=== PATIENT | male | born 1950 | race Caucasian/White ===

== ENCOUNTER → 2016-03-11 | Outpatient (CLI) | payer MEDICARE | LOC: RAD 14:27 | PROVIDERS: ATTEND Physician Assistant | DX: R05 Cough (principal) | CPT/HCPCS: 71020 ==

== ENCOUNTER → 2016-07-07 | Outpatient (CLI) | payer MEDICARE | LOC: OD 13:23 | PROVIDERS: ATTEND Physician Assistant | DX: M25.551 Pain in right hip (principal) ==

== ENCOUNTER → 2017-02-21 | Outpatient (CLI) | payer MEDICARE ==
--- NOTE | 2017-02-21 18:05 | XCELERA REPORT ---
[address] [address] Transthoracic Echocardiogram Report Name: AMAURY LAW Age: 66 yrs Gender: Male : 1950 Patient Status: Outpatient Patient Location: Study Date: 02/21/2017 02:11 PM Height: 68 in Weight: 275 lb BSA: 2.3 m2 Procedure: A complete two-dimensional transthoracic echocardiogram was performed (2D, M-mode, spectral and color flow Doppler). The study was technically difficult with many images being suboptimal in quality. Reason For Study: EDEMA Ordering Physician: YIN KAY Performed By: Nahomi Robert Interpretation Summary The study was technically difficult with many images being suboptimal in quality. The left ventricle has normal cavity size with globally normal systolic function. Estimated left ventricular ejection fraction is 55%. The left ventricle is grossly normal size. There is mild concentric left ventricular hypertrophy. Doppler measurements suggest pseudonormalized left ventricular relaxation, which is associated with grade II/IV or mild to moderate diastolic dysfunction Regional wall motion abnormalities cannot be excluded due to limited visualization. The right ventricular systolic function is normal. The left atrium is moderately dilated. The right atrium is normal in size There is a trace amount of mitral regurgitation There is no mitral valve stenosis. No aortic regurgitation is present. There is no aortic valve stenosis There is a trace or physiologic amount of tricuspid regurgitation Tricuspid regurgitation jet envelope not well defined to measure RV systolic pressure accurately. The aortic root is not well visualized but is probably normal size. The inferior vena cava was not visualized Minimal pericardial effusion. MMode/2D Measurements & Calculations RVDd: 3.2 cm LVIDd: 5.2 cm FS: 31.4 % Ao root diam: 3.2 cm IVSd: 1.2 cm LVIDs: 3.6 cm EDV(Teich): 129.6 ml LVPWd: 1.2 cm ESV(Teich): 53.3 ml Ao root area: 7.9 cm2 EF(Teich): 58.9 % Doppler Measurements & Calculations MV E max jenn: MV dec slope: Ao V2 max: LV V1 max P.5 cm/sec 138.0 cm/sec 4.3 mmHg MV A max jenn: 526.9 cm/sec2 Ao max PG: LV V1 max: 94.0 cm/sec MV dec time: 7.6 mmHg 103.1 cm/sec MV E/A: 0.86 0.15 sec PA V2 max: TR max jenn: 80.6 cm/sec 256.6 cm/sec PA max PG: TR max P.3 mmHg 2.6 mmHg Left Ventricle The left ventricle is grossly normal size. There is mild concentric left ventricular hypertrophy. The left ventricle has normal cavity size with globally normal systolic function. Estimated left ventricular ejection fraction is 55%. Doppler measurements suggest pseudonormalized left ventricular relaxation, which is associated with grade II/IV or mild to moderate diastolic dysfunction. Regional wall motion abnormalities cannot be excluded due to limited visualization. Right Ventricle The right ventricle is grossly normal size. There is normal right ventricular wall thickness. The right ventricular systolic function is normal. Atria The right atrium is normal in size. The left atrium is moderately dilated. Interarterial septum not well visualized and not well dopplered. Cannot comment on ASD/PFO presence. Mitral Valve The mitral valve is grossly normal. There is no mitral valve stenosis. There is a trace amount of mitral regurgitation. Aortic Valve The aortic valve is sclerotic, but shows no functional abnormality. There is no aortic valve stenosis. No aortic regurgitation is present. Tricuspid Valve The tricuspid valve is not well visualized secondary to technical limitations. There is no tricuspid stenosis. There is a trace or physiologic amount of tricuspid regurgitation. Tricuspid regurgitation jet envelope not well defined to measure RV systolic pressure accurately. Pulmonic Valve The pulmonic valve is not well visualized. Great Vessels The aortic root is not well visualized but is probably normal size. The inferior vena cava was not visualized. Effusions Minimal pericardial effusion. : YIN KAY > Michele Norris
== END ==
LOC: SP 14:04
PROVIDERS: ATTEND Physician Assistant
DX: R60.9 Edema, unspecified (principal); R22.43 Localized swelling, mass and lump, lower limb, bilateral
CPT/HCPCS: 93306

== ENCOUNTER 2017-05-10 07:00 | Day surgery (SDC) | payer MEDICARE ==
[~2017-05-10 07:00] MED LIST: KETOROLAC TROMETHAMINE 0.45% 4 DROP/0.4 ML DROPERETTE OS PRN
[2017-05-10] MEDS ORDERED: MIDAZOLAM 2 MG/2 ML INJ ONE (07:11)
[2017-05-10] MEDS: TETRACAINE HCL 0.5% OPH SOLN 0.6 ML DROPERETTE OS PRN ×4 (07:17→07:55)
[2017-05-10] MEDS: BESIFLOXACIN HCL 0.6% OPH SUSP 5 ML BOTTLE OS PRN ×4 (07:18→08:16)
[2017-05-10] MEDS: TROPICAMIDE 1% OPH SOLN 3 ML OS PRN ×3 (07:18→07:40)
[2017-05-10] MEDS: CYCLOPENTOLATE 0.2%/PHENYLEPHRINE 1% OPH SOLN 2 ML OS PRN ×3 (07:18→07:40)
[2017-05-10] MEDS: EPINEPHRINE INJ/PF 1 MG/1 ML AMPULE ONE ×2 (08:02)
[2017-05-10] MEDS: LIDOCAINE 1% INJ-PF (10 MG/ML) 30 ML SDV ONE ×2 (08:03)
[2017-05-10] MEDS: CHONDR SU A NA/HYALUR INTRAOC KIT (SURGICARE) ONE ×2 (08:05)
[2017-05-10] MEDS: TOBRAMYCIN SULFATE/DEXAMETH OPH OINTMENT 3.5 GM ONE ×2 (08:16)
== END 2017-05-10 09:00 | disposition home or self-care (01) ==
LOC: SC 07:00
PROVIDERS: ATTEND Ophthalmology
PROC: 08RK3JZ Replacement of Left Lens with Synthetic Substitute, Percutaneous Approach (ICD-10-PCS; principal; 2017-05-10 07:45)
DX: H25.12 Age-related nuclear cataract, left eye (principal); J44.9 Chronic obstructive pulmonary disease, unspecified; I10 Essential (primary) hypertension; E11.9 Type 2 diabetes mellitus without complications; E78.00 Pure hypercholesterolemia, unspecified; K21.9 Gastro-esophageal reflux disease without esophagitis; Z79.82 Long term (current) use of aspirin; Z79.899 Other long term (current) drug therapy; Z79.84 Long term (current) use of oral hypoglycemic drugs; Z79.4 Long term (current) use of insulin; Z87.891 Personal history of nicotine dependence
CPT/HCPCS: 66984; 82962; V2630; J2250; J3490 ×3; A9270; J0171; 142

== ENCOUNTER 2017-05-24 07:56 | Day surgery (SDC) | payer MEDICARE ==
[~2017-05-24 07:56] MED LIST changes: +CHONDR SU A NA/HYALUR INTRAOC KIT (SURGICARE) ONE; +EPINEPHRINE INJ/PF 1 MG/1 ML AMPULE ONE; +KETOROLAC TROMETHAMINE 0.45% 4 DROP/0.4 ML DROPERETTE OD PRN; -KETOROLAC TROMETHAMINE 0.45% 4 DROP/0.4 ML DROPERETTE OS PRN; +LIDOCAINE 1% INJ-PF (10 MG/ML) 30 ML SDV ONE; +TOBRAMYCIN SULFATE/DEXAMETH OPH OINTMENT 3.5 GM ONE
[2017-05-24] MEDS: TETRACAINE HCL 0.5% OPH SOLN 0.6 ML DROPERETTE OD PRN ×3 (08:20→08:34)
[2017-05-24] MEDS: BESIFLOXACIN HCL 0.6% OPH SUSP 5 ML BOTTLE OD PRN ×3 (08:20→09:02)
[2017-05-24] MEDS: TROPICAMIDE 1% OPH SOLN 3 ML OD PRN ×3 (08:20→08:31)
[2017-05-24] MEDS: CYCLOPENTOLATE 0.2%/PHENYLEPHRINE 1% OPH SOLN 2 ML OD PRN ×3 (08:20→08:31)
[2017-05-24] MEDS ORDERED: MIDAZOLAM 2 MG/2 ML INJ ONE ×2 (08:23)
[2017-05-24] MEDS ORDERED: FENTANYL CITRATE INJ/PF 100 MCG/2 ML AMPUL ONE (08:23)
== END 2017-05-24 09:39 | disposition home or self-care (01) ==
LOC: SC 07:56
PROVIDERS: ATTEND Ophthalmology
DX: H25.11 Age-related nuclear cataract, right eye (principal); Z98.42 Cataract extraction status, left eye; J44.9 Chronic obstructive pulmonary disease, unspecified; E11.9 Type 2 diabetes mellitus without complications; I10 Essential (primary) hypertension; K21.9 Gastro-esophageal reflux disease without esophagitis; E78.00 Pure hypercholesterolemia, unspecified; Z79.82 Long term (current) use of aspirin; Z79.84 Long term (current) use of oral hypoglycemic drugs; Z79.899 Other long term (current) drug therapy; Z87.891 Personal history of nicotine dependence
CPT/HCPCS: 82962; 66984; V2630; J2250; J3490 ×3; A9270; J0171; J3010; 142

== ENCOUNTER → 2017-12-02 | Outpatient (CLI) | payer MEDICARE ==
--- NOTE | 2017-12-03 12:27 | RADIOLOGY REPORT (SQ) ---
EXAM DESCRIPTION: MRI LUMBAR SPINE WITHOUT COMPLETED DATE/TIME: 12/02/2017 9:55 am REASON FOR STUDY: BACK PAIN W/ RADICULOPATHY M54.10 RADICULOPATHY, SITE UNSPECIFIED COMPARISON: CT abdomen pelvis 07/13/2015 TECHNIQUE: Sagittal and Axial imaging includes T1, T2, STIR and gradient echo sequences. Coronal T2/ HASTE imaging. LIMITATIONS: None. FINDINGS: VISUALIZED UPPER ABDOMEN: Limited evaluation. No acute or suspicious findings suggested. SEGMENTATION: No transitional anatomy. The lowest well-developed disc space is labeled L5-S1. ALIGNMENT: Anatomic. VERTEBRAE: Intact. BONE MARROW: Mild fatty degenerative endplate changes at T12-L1 and L2-3. Mild edema in the anterior superior corner of L1 related to bony spurring. DISC SIGNAL: Diffuse decreased T2 weighted intervertebral disc signal. Disc space loss of height at L5-S1 POSTERIOR ELEMENTS: Generally intact. No pars defect evident. HARDWARE: None in the spine. CORD AND CONUS: Normal in size and signal intensity. Conus at the T12-L1 level. SOFT TISSUES: No aortic aneurysm seen. No bulky retroperitoneal adenopathy or mass. No paraspinal mas s or fluid. T11-12: No central or foraminal stenosis. Moderate bilateral facet hypertrophy. T12-L1: Unremarkable all L1-L2: Mild diffuse posterior disc bulge and bony spurring, mild bilateral facet and ligament hypertr ophy. No significant central or foraminal encroachment. L2-L3: Mild diffuse posterior disc bulge and bony spurring, mild bilateral facet and ligament hypertr ophy. No significant central or foraminal encroachment L3-L4: Broad diffuse posterior disc bulging is present with a left foraminal protrusion. Mild bilate ral facet and ligament hypertrophy. Borderline central canal narrowing. No right foraminal stenosis . Moderate left foraminal narrowing without definite exiting L3 nerve root impingement. L4-L5: Broad diffuse posterior disc bulge and bony spurring and moderate bilateral facet and ligament hypertrophy is present. No central stenosis. No right foraminal narrowing. Mild left foraminal st enosis. L5-S1: Broad diffuse posterior disc bulge and bony spurring is present with a central chronic appeari ng disc protrusion with bony spurring. This does not have mass effect on the thecal sac or exiting L 5 or proximal S1 nerve roots. No significant central stenosis. Mild bilateral foraminal narrowing w ithout exiting L5 nerve root impingement SACRUM: Visualized upper sacrum intact. OTHER: No other significant findings. IMPRESSION: Diffuse degenerative changes without high-grade central or foraminal stenosis TECHNICAL DOCUMENTATION: JOB ID: [id number]- All Rights Reserved Reading location - IP/workstation name: [email or web address]
== END ==
LOC: RAD 09:02
PROVIDERS: ATTEND Family Medicine
DX: M54.10 Radiculopathy, site unspecified (principal)
CPT/HCPCS: 72148

== ENCOUNTER 2017-12-26 04:03 | Inpatient (IN) | payer MEDICARE ==
[2017-12-26] MEDS ORDERED: IPRATROPIUM/ALBUTEROL 0.5-2.5 MG/3 ML AMPUL NEB ONE ×2 (04:22)
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
[2017-12-26 04:32] LABS: ABSOLUTE BASOPHILS # (AUTO) 0.1 10^3/uL (0.0-0.2); ABSOLUTE EOSINOPHILS # (AUTO) 0.2 10^3/uL (0.0-0.6); ABSOLUTE LYMPHOCYTES (AUTO) 1.7 10^3/uL (0.5-4.7); ABSOLUTE MONOCYTES (AUTO) 0.6 10^3/uL (0.1-1.4); ABSOLUTE NEUT (AUTO) 5.2 10^3/uL (1.7-8.2); BASOPHILS % (AUTO) 0.7 % (0-2); EOSINOPHILS % (AUTO) 2.2 % (0-6); HEMATOCRIT 40.3 % (37.9-51.0); HEMOGLOBIN 13.3 g/dL (13.5-17.0); LYMPHOCYTES % (AUTO) 22.1 % (13-45); MEAN CORPUSCULAR HEMOGLOBIN 26.7 pg (27.0-33.4); MEAN CORPUSCULAR VOLUME 81 fl (80-97); MONOCYTES % (AUTO) 7.9 % (3-13); PLATELET COUNT 246 10^3/uL (150-450); RED BLOOD COUNT 4.98 10^6/uL (4.35-5.55); RED CELL DISTRIBUTION WIDTH 15.4 % (11.5-14.0); SEGMENTED NEUTROPHILS % (AUTO) 67.1 % (42-78); TOTAL CELLS COUNTED % (AUTO) 100 %; WHITE BLOOD COUNT 7.7 10^3/uL (4.0-10.5)
[2017-12-26] MEDS: MAGNESIUM SULFATE/D5W 1 GM/100 ML RTUPB IV SCH ×2 (04:37→05:34)
[2017-12-26 04:52] LABS: ALANINE AMINOTRANSFERASE 28 U/L (21-72); ALBUMIN 3.4 g/dL (3.5-5.0); ALKALINE PHOSPHATASE 62 U/L (38-126); ANION GAP 13 (5-19); ASPARTATE AMINO TRANSFERASE 24 U/L (17-59); BILIRUBIN,DIRECT 0.1 mg/dL (0.0-0.4); BILIRUBIN,TOTAL 0.3 mg/dL (0.2-1.3); BLOOD UREA NITROGEN 19 mg/dL (7-20); CALCIUM 9.1 mg/dL (8.4-10.2); CARBON DIOXIDE 30 mmol/L (22-30); CHLORIDE 104 mmol/L (98-107); GLUCOSE 117 mg/dL (75-110); POTASSIUM 3.7 mmol/L (3.6-5.0); SODIUM 146.5 mmol/L (137-145); TOTAL PROTEIN 6.1 g/dL (6.3-8.2)
[2017-12-26 05:03] LABS: TROPONIN I 0.024 ng/mL
--- NOTE | 2017-12-26 05:32 | RADIOLOGY REPORT (SQ) ---
EXAM DESCRIPTION: X-ray single view chest. CLINICAL HISTORY: 67 years Male, shortness of breath COMPARISON: None. TECHNIQUE: Single portable view of the chest performed on 12/26/2017 at 5:05 AM FINDINGS: The lungs are well expanded. There are patchy parenchymal opacities in the left perihilar region and left lung base and to a lesser degree the right lung base. These may represent areas of atelectasis or inflammatory change. There is no evidence of a pneumothorax. The cardiac silhouette is within normal limits. The mediastinal contours are normal. No acute osseous abnormality is identified. There are mild degenerative changes of the spine and left shoulder. No focal soft tissue abnormalities are seen. Lines and tubes: None. IMPRESSION: Patchy parenchymal opacities in the left perihilar region and left lung base and to a lesser degree the right lung base possibly due to atelectasis versus an infectious or inflammatory process
[2017-12-26] MEDS ORDERED: DOXYCYCLINE HYCLATE INJ 100 MG VIAL IV ONE (05:54)
[2017-12-26 06:07] LABS: VENOUS BLOOD HCO3 28.4 mmol/L (20-32); VENOUS BLOOD PCO2 46.8 mmHg (35-63); VENOUS BLOOD PH 7.4 (7.30-7.42)
[2017-12-26] MEDS ORDERED: GLUCAGON,HUMAN RECOMB 1 MG INJ IM PRN (06:44)
[2017-12-26] MEDS ORDERED: DEXTROSE 50%-WATER 25 GM/50 ML DISP.SYRIN IV PRN ×2 (06:44)
[2017-12-26] MEDS ORDERED: DEXTROSE 40% GEL 15 GM TUBE PO PRN ×2 (06:44)
[2017-12-26] MEDS: IPRATROPIUM/ALBUTEROL 0.5-2.5 MG/3 ML AMPUL NEB SCH ×5 (08:52→23:34)
[2017-12-26 09:57] LABS: ARTERIAL BLOOD BASE EXCESS 4.3 mmol/L; ARTERIAL BLOOD H2CO3 1.46 mmol/L (1.05-1.35); ARTERIAL BLOOD HCO3 29.9 mmol/L (20-24); ARTERIAL BLOOD O2 SATURATION 96.7 % (94-98); ARTERIAL BLOOD PCO2 48.4 mmHg (35-45); ARTERIAL BLOOD PH 7.41 (7.35-7.45); ARTERIAL BLOOD TOTAL CO2 31.3 mmol/L (23-27)
[2017-12-26 09:58] LABS: ARTERIAL BLOOD FIO2 3 L
[2017-12-26] MEDS ORDERED: FUROSEMIDE INJ/PF 20 MG/2 ML SDV IV SCH ×2 (10:00→11:15)
[2017-12-26] MEDS ORDERED: AZITHROMYCIN 500 MG in DEXTROSE 5%-WATER 250 ML IV SCH (10:00)
[2017-12-26] MEDS ORDERED: CEFTRIAXONE 1 GM/D5W RTU 50 ML IV SCH (10:00)
[2017-12-26] MEDS ORDERED: CEFTRIAXONE SODIUM 1,000 MG in DEXTROSE 5%-WATER 50 ML IV SCH (10:00)
[2017-12-26] MEDS: DOXYCYCLINE HYCLATE 100 MG TABLET PO SCH ×2 (10:19→23:01)
[2017-12-26] MEDS: GUAIFENESIN 600 MG TABLET.SA PO SCH ×2 (10:19→23:00)
[2017-12-26] MEDS: FAMOTIDINE 20 MG TABLET PO SCH ×2 (10:19→23:00)
[2017-12-26] MEDS: ENOXAPARIN SODIUM INJ 40 MG/0.4 ML DISP.SYRIN SUBCUT SCH (10:20)
[2017-12-26] MEDS: INSULIN LISPRO 100 UNIT/ML 3 ML VIAL SUBCUT PRN ×3 (10:20→17:19)
--- NOTE | 2017-12-26 10:36 | EKG REPORT ---
SEVERITY:- BORDERLINE ECG - SINUS RHYTHM BORDERLINE PROLONGED QT INTERVAL : Confirmed by: Randi Kaye MD 26-Dec-2017 10:35:51
[2017-12-26 11:17] LABS: CREATINE KINASE MB 1.15 ng/mL (<4.55); TROPONIN I 0.019 ng/mL
--- NOTE | 2017-12-26 12:03 | RADIOLOGY REPORT (SQ) ---
EXAM DESCRIPTION: CTA CHEST COMPLETED DATE/TIME: 12/26/2017 11:30 am REASON FOR STUDY: hypoxia/sob COMPARISON: None. TECHNIQUE: CT scan of the chest performed using helical scanning technique with dynamic intravenous contrast injection. Images reviewed with lung, soft tissue and bone windows. Reconstructed coronal and sagittal MPR images reviewed. Additional 3 dimensional post-processing performed to develop Maximal Intensity Projection images (DC P). All images stored on PACS. All CT scanners at this facility use dose modulation, iterative reconstruction, and/or weight based d osing when appropriate to reduce radiation dose to as low as reasonably achievable (ALARA). [facility]: Dose Right [facility]: CareDose [facility]: Dose Right [facility]: Teradose 4D [facility]: Humagade CONTRAST TYPE AND DOSE: contrast/concentration: Isovue 350.00 mg/ml; Total Contrast Delivered: 79.0 ml; Total Saline Delivered: 110.0 ml Contrast bolus optimized for the pulmonary arteries. Not diagnostic for the aorta. RENAL FUNCTION: BUN 19 creatinine 0.75. RADIATION DOSE: CT Rad equipment meets quality standard of care and radiation dose reduction techniq ues were employed. CTDIvol: 14.9 - 33.8 mGy. DLP: 3093 mGy-cm. . LIMITATIONS: None. FINDINGS: LUNGS AND PLEURA: Moderate bilateral pleural effusions with scattered basilar atelectasis. AORTA AND GREAT VESSELS: No aneurysm. Contrast bolus not optimized for the aorta. HEART: No pericardial effusion. No significant coronary artery calcifications. PULMONARY ARTERIES: No emboli visualized in the main pulmonary arteries or the segmental branches. HILAR AND MEDIASTINAL STRUCTURES: No identified masses or abnormal nodes. HARDWARE: None in the chest. UPPER ABDOMEN: See separate report of the CT of the abdomen. THYROID AND OTHER SOFT TISSUES: No masses. No adenopathy. BONES: No acute or significant finding. 3D MIPS: Confirm above findings. OTHER: No other significant finding. IMPRESSION: 1. NORMAL CTA OF THE CHEST. NO PULMONARY EMBOLI. 2. MODERATE BILATERAL PLEURAL EFFUSIONS WITH SCATTERED BASILAR ATELECTASIS. COMMENT: Quality ID # [id number]: Final reports with documentation of one or more dose reduction techniques (e.g., Automated exposure control, adjustment of the mA and/or kV according to patient size, use of iterative reconstruction technique) TECHNICAL DOCUMENTATION: JOB ID: [id number]- All Rights Reserved Reading location - IP/workstation name: [email or web address]
--- NOTE | 2017-12-26 12:08 | RADIOLOGY REPORT (SQ) ---
EXAM DESCRIPTION: CT ABD/PELVIS WITH IV ONLY COMPLETED DATE/TIME: 12/26/2017 11:30 am REASON FOR STUDY: abd distension COMPARISON: None. TECHNIQUE: CT scan of the abdomen and pelvis performed using helical scanning technique with dynamic intravenous contrast injection. No oral contrast. Images reviewed with lung, soft tissue, and bone windows. Reconstructed coronal and sagittal MPR images reviewed. Delayed images for evaluation of the urinary system also acquired. All images stored on PACS. All CT scanners at this facility use dose modulation, iterative reconstruction, and/or weight based d osing when appropriate to reduce radiation dose to as low as reasonably achievable (ALARA). [facility]: Dose Right [facility]: CareDose [facility]: Dose Right [facility]: Teradose 4D [facility]: Truzip CONTRAST TYPE AND DOSE: 79 mL Omnipaque 350- low osmolar. RENAL FUNCTION: BUN 19 creatinine 0.75. RADIATION DOSE: . LIMITATIONS: None. FINDINGS: LOWER CHEST: See separate report of the CT of the chest. LIVER: Normal size. No masses. No dilated ducts. SPLEEN: Normal size. No focal lesions. PANCREAS: No masses. No significant calcifications. No adjacent inflammation or peripancreatic fluid collections. Pancreatic duct not dilated. GALLBLADDER: No identified stones by CT criteria. No inflammatory changes to suggest cholecystitis. ADRENAL GLANDS: No significant masses or asymmetry. RIGHT KIDNEY AND URETER: No solid masses. No significant calcifications. No hydronephrosis or hyd roureter. LEFT KIDNEY AND URETER: No solid masses. No significant calcifications. No hydronephrosis or hydr oureter. AORTA AND VESSELS: No aneurysm. No dissection. Renal arteries, SMA, celiac without stenosis. RETROPERITONEUM: No retroperitoneal adenopathy, hemorrhage or masses. BOWEL AND PERITONEAL CAVITY: No masses or inflammatory changes in the bowel. Slight hazy appearance of the mesentery. No free fluid or peritoneal masses. APPENDIX: Normal. PELVIS: No mass. No free fluid. Normal bladder. ABDOMINAL WALL: No masses. No hernias. BONES: No significant or acute findings. OTHER: No other significant finding. IMPRESSION: 1. SLIGHT HAZY APPEARANCE OF THE MESENTERY, "ANETA MESENTERY" . THIS IS A NONSPECIFIC FINDING AND CO ULD BE INCIDENTAL BUT COULD BE INDICATIVE OF INFLAMMATORY PROCESS. 2. NO OTHER SIGNIFICANT OR ACUTE FINDING IN THE ABDOMEN OR PELVIS ON CT SCAN WITH IV CONTRAST. TECHNICAL DOCUMENTATION: JOB ID: [id number] Quality ID # [id number]: Final reports with documentation of one or more dose reduction techniques (e.g., Au tomated exposure control, adjustment of the mA and/or kV according to patient size, use of iterative reconstruction technique) 2010 [employer]- All Rights Reserved Reading location - IP/workstation name: [email or web address]
--- NOTE | 2017-12-26 12:10 | Physician Advisory Note ---
Physician Advisor ProgressNote .: Pursuant to the plan for Ramona Jones, I have reviewed the medical record for this patient. Physician Advisor Statement: Please consider documenting, if you agree: 1. "Possible pneumonia, suspect gram-___ type, evidenced by " 2. "Possible acute ___ CHF, evidenced by " 3. "obesity, BMI 45.7" 4. ? - "Worsening hypoxemia" (sat 95% on 3L gives P/F ratio of 250, after earlier 96% on 2L which gives P/F ratio 321) 5. Medical necessity - it is clear pt is not appropriate to go home today, but need it explicit why pt is felt to be appropraite for Inpt status from the outset (see below) Status: COPD exac +/- CHF exac/PNA is typically most appropriate for Obs status initially, changing to Inpt if not responding promptly to appropriate tx. In this case, this [employer] pt normally does not need O2, & is needing O2 + frequent Duonebs etc, even after 3 Duonebs & Solumedrol & IV Mag between EMS & ED - but he has not had even 12 hours of tx yet. - If he is noted to have increased work of breathing at same time as hypoxemia , he qualifies for dx of Ac Hypoxemic Resp FAilure (he was already noted to have labored breathing in triage at 04:19, but O2 sat was not clearly hypoxemic at that time, per data this reviewer has seen). From what is documented so far, appears most appropriate for Obs status initially, but certainly has potential for developing Inpt appropriateness if he is not improving adequately after a day of aggressive therapy (still needing O2, or breathing not yet close to baseline, ...). - If attg felt, at time of status decision, that pt would most certainly not improve promptly w/appropriately aggressive tx, but would be sure to have a prolonged course of aggressive hospital level care needed, please document the reasons for that (that can be considered in determining appropriate initial status). Thanks! CK
--- NOTE | 2017-12-26 14:49 | PDOC H&P ---
History of Present Illness Admission Date/PCP: 12/26/17 06:32 ANANDA FERNANDEZ MD Patient complains of: sob History of Present Illness: AMAURY LAW is a 67 year old male this is 67 male with type 2 dm/htn/copd and chronic back pain came to er via ems due to sob and fever and chills and p was mild respirtory distress and place on 02 and neb x pt also recived iv soulmedrol pt also c/o leg swelling and abd distesnsion according to pt also have fever and chills since yeterday but pt denied any cough pt also seen by cardilogy 2 yr back and all stable pt nt bnp was elevated in er when i saw pt on floor feel better no chest pain pt admitted for copd/pnemonia and r/o chf Past Medical History Cardiac Medical History: Reports: Hypertension Denies: Coronary Artery Disease, Myocardial Infarction Pulmonary Medical History: Reports: Chronic Obstructive Pulmonary Disease (COPD) , Pneumonia, Sleep Apnea Denies: Asthma, Bronchitis Neurological Medical History: Denies: Seizures Endocrine Medical History: Reports: Diabetes Mellitus Type 2 GI Medical History: Reports: Gastroesophageal Reflux Disease Denies: Hepatitis, Hiatal Hernia Musculoskeltal Medical History: Denies: Arthritis Hematology: Denies: Anemia, Sickle Cell Disease Past Surgical History Past Surgical History: Denies: Pacemaker Social History Lives with: Family Smoking Status: Former Smoker Frequency of Alcohol Use: Rare Hx Recreational Drug Use: No Drugs: None Hx Prescription Drug Abuse: No Family History Family History: Reviewed & Not Pertinent Parental Family History Reviewed: Yes Children Family History Reviewed: Yes Sibling(s) Family History Reviewed.: Yes Medication/Allergy Home Medications: Aspirin [Aspirin EC] 81 mg PO DAILY 12/26/17 Hum Insulin NPH/Reg Insulin Hm [Insulin Inj 70-30 (100 Unit/1 ml) 3 ml Vial] 20 unit SUBCUT Q12 12/26/17 Ipratropium/Albuterol Sulfate [Duoneb 3 ml Ampul] 3 ml NEB RTQIDP PRN 12/26/17 Losartan Potassium [Cozaar 50 mg Tablet] 50 mg PO DAILY 12/26/17 Metformin HCl [Glucophage] 1,000 mg PO BID 12/26/17 Omeprazole 40 mg PO QPM 12/26/17 Pioglitazone HCl [Actos] 30 mg PO QPM 12/26/17 Allergies/Adverse Reactions: No Known Allergies Allergy (Verified 07/13/15 17:03) Review of Systems Constitutional: PRESENT: chills, fever(s). ABSENT: headache(s), weight gain, weight loss Eyes: ABSENT: visual disturbances Ears: ABSENT: hearing changes Cardiovascular: PRESENT: dyspnea on exertion. ABSENT: chest pain, edema, orthropnea, palpitations Respiratory: ABSENT: cough, hemoptysis Gastrointestinal: ABSENT: abdominal pain, constipation, diarrhea, hematemesis, hematochezia, nausea, vomiting Genitourinary: ABSENT: dysuria, hematuria Musculoskeletal: ABSENT: joint swelling Integumentary: ABSENT: rash, wounds Neurological: ABSENT: abnormal gait, abnormal speech, confusion, dizziness, focal weakness, syncope Psychiatric: ABSENT: anxiety, depression, homidical ideation, suicidal ideation Endocrine: ABSENT: cold intolerance, heat intolerance, menstrual abnormalities, polydipsia, polyuria Hematologic/Lymphatic: ABSENT: easy bleeding, easy bruising, lymphadenopathy Physical Exam Vital Signs: Temp Pulse Resp BP Pulse Ox 97.7 F 84 20 189/88 H 95 12/26/17 07:56 12/26/17 12:41 12/26/17 12:41 12/26/17 07:56 12/26/17 12:41 Intake & Output 12/25/17 12/26/17 12/27/17 06:59 06:59 06:59 Intake Total 100 50 Balance 100 50 Weight 136.4 kg General appearance: PRESENT: no acute distress, well-developed, well-nourished Head exam: PRESENT: atraumatic, normocephalic Eye exam: PRESENT: conjunctiva pink, EOMI, PERRLA. ABSENT: scleral icterus Ear exam: PRESENT: normal external ear exam Mouth exam: PRESENT: moist, tongue midline Neck exam: PRESENT: full ROM. ABSENT: carotid bruit, JVD, lymphadenopathy, thyromegaly Respiratory exam: PRESENT: decreased breath sounds Cardiovascular exam: PRESENT: RRR. ABSENT: diastolic murmur, rubs, systolic murmur Pulses: PRESENT: normal dorsalis pedis pul, +2 pedal pulses bilateral Vascular exam: PRESENT: normal capillary refill GI/Abdominal exam: PRESENT: distended, normal bowel sounds, soft. ABSENT: guarding, mass, organolmegaly, rebound, tenderness Rectal exam: PRESENT: deferred Extremities exam: PRESENT: pedal edema Neurological exam: PRESENT: alert, awake, oriented to person, oriented to place , oriented to time, oriented to situation, CN II-XII grossly intact. ABSENT: motor sensory deficit Psychiatric exam: PRESENT: appropriate affect, normal mood. ABSENT: homicidal ideation, suicidal ideation Skin exam: PRESENT: dry, intact, warm. ABSENT: cyanosis, rash Results Laboratory Results: 12/26/17 09:30 Carbonic Acid 1.46 H HCO3/H2CO3 Ratio 20:1 ABG pH 7.41 ABG pCO2 48.4 H ABG pO2 88.0 ABG HCO3 29.9 H ABG O2 Saturation 96.7 ABG Base Excess 4.3 FiO2 3 L 12/26/17 12/26/17 10:17 10:17 Creatine Kinase 56 CK-MB (CK-2) 1.15 Troponin I 0.019 Impressions: Abdomen/Pelvis CT 12/26/17 00:00 IMPRESSION: 1. SLIGHT HAZY APPEARANCE OF THE MESENTERY, "ANETA MESENTERY" . THIS IS A NONSPECIFIC FINDING AND COULD BE INCIDENTAL BUT COULD BE INDICATIVE OF INFLAMMATORY PROCESS. 2. NO OTHER SIGNIFICANT OR ACUTE FINDING IN THE ABDOMEN OR PELVIS ON CT SCAN WITH IV CONTRAST. Chest/Abdomen CTA 12/26/17 00:00 IMPRESSION: 1. NORMAL CTA OF THE CHEST. NO PULMONARY EMBOLI. 2. MODERATE BILATERAL PLEURAL EFFUSIONS WITH SCATTERED BASILAR ATELECTASIS. Chest X-Ray 12/26/17 04:22 IMPRESSION: Patchy parenchymal opacities in the left perihilar region and left lung base and to a lesser degree the right lung base possibly due to atelectasis versus an infectious or inflammatory process Assessment & Plan - Diagnosis (1) COPD (chronic obstructive pulmonary disease) with acute bronchitis Is this a current diagnosis for this admission?: Yes Plan: cont neb (2) Hypertension Qualifiers: Hypertension type: essential hypertension Qualified Code(s): I10 - Essential (primary) hypertension Is this a current diagnosis for this admission?: Yes Plan: cont curr med (3) Pneumonia Qualifiers: Pneumonia type: due to unspecified organism Laterality: bilateral Lung location: unspecified part of lung Qualified Code(s): J18.9 - Pneumonia, unspecified organism Is this a current diagnosis for this admission?: Yes Plan: start ax (4) Shortness of breath Is this a current diagnosis for this admission?: Yes Plan: possible copd/pnemonia but will r/o other possiblity order echo order cta (5) Abdominal distension Is this a current diagnosis for this admission?: Yes Plan: will order ct abd/pelvis (6) Sleep apnea Qualifiers: Sleep apnea type: unspecified type Qualified Code(s): G47.30 - Sleep apnea , unspecified Is this a current diagnosis for this admission?: Yes Plan: cont use c pap - Time Time Spent: 50 to 70 Minutes Medications reviewed and adjusted accordingly: Yes Anticipated discharge: Home Within: Other - Inpatient Certification Based on my medical assessment, after consideration of the patient's comorbidities, presenting symptoms, or acuity I expect that the services needed warrant INPATIENT care.: Yes I certify that my determination is in accordance with my understanding of Medicare's requirements for reasonable and necessary INPATIENT services [42 CFR 412.3e].: Yes Medical Necessity: Significant Comorbidiites Make Outpatient Treatment Too Risky , Need Close Monitoring Due to Risk of Patient Decompensation, Need for IV Antibiotics Post Hospital Care: D/C Legal Administrative Secretary Documentation - Plan Summary Plan Summary: admit in [facility] d/w and family on bed side
[2017-12-26 15:49] LABS: A TYPE INFLUENZA AG NEGATIVE (NEGATIVE); B INFLUENZA AG NEGATIVE (NEGATIVE)
[2017-12-26 16:59] LABS: CREATINE KINASE MB 1.3 ng/mL (<4.55); TROPONIN I 0.019 ng/mL
[2017-12-26] MEDS: PIOGLITAZONE HCL 30 MG TABLET PO SCH (17:18)
[2017-12-26] MEDS: LANSOPRAZOLE 30 MG TAB.RAP.DR PO SCH (17:19)
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
[2017-12-26] MEDS: ACETAMINOPHEN 325 MG TABLET PO PRN (22:10)
[2017-12-26 22:37] LABS: CREATINE KINASE MB 1.12 ng/mL (<4.55); TROPONIN I 0.027 ng/mL
[2017-12-26] MEDS: LOSARTAN POTASSIUM 50 MG TABLET PO SCH (23:00)
[2017-12-26] MEDS: HUM INSULIN NPH/REG INSULIN HM 100 UNIT/1 ML 3 ML SUBCUT SCH (23:01)
[2017-12-27] MEDS: HYDRALAZINE HCL INJ/PF 20 MG/1 ML SDV IV PRN ×4 (00:08→17:57)
[2017-12-27 00:46] LABS: APPEARANCE,URINE CLOUDY; BILIRUBIN,URINE NEGATIVE (NEGATIVE); COLOR,URINE AMBER; GLUCOSE, URINE >=500 mg/dL (NEGATIVE); KETONES,URINE NEGATIVE (NEGATIVE); LEUKOCYTE ESTERASE,URINE NEGATIVE (NEGATIVE); NITRITE,URINE NEGATIVE (NEGATIVE); PROTEIN,URINE >=500 mg/dL (NEGATIVE); URINE SPECIFIC GRAVITY 1.037; UROBILINOGEN,URINE NEGATIVE mg/dL (<2.0)
[2017-12-27] MEDS: IPRATROPIUM/ALBUTEROL 0.5-2.5 MG/3 ML AMPUL NEB SCH ×5 (03:48→20:27)
[2017-12-27 05:06] LABS: ABSOLUTE LYMPHOCYTES (AUTO) 1.6 10^3/uL (0.5-4.7); ABSOLUTE MONOCYTES (AUTO) 0.9 10^3/uL (0.1-1.4); ABSOLUTE NEUT (AUTO) 8.9 10^3/uL (1.7-8.2); BASOPHILS % (AUTO) 0.4 % (0-2); EOSINOPHILS % (AUTO) 0.1 % (0-6); HEMATOCRIT 34.9 % (37.9-51.0); HEMOGLOBIN 11.6 g/dL (13.5-17.0); LYMPHOCYTES % (AUTO) 13.8 % (13-45); MEAN CORPUSCULAR HEMOGLOBIN 26.5 pg (27.0-33.4); MEAN CORPUSCULAR HGB CONC 33.2 g/dL (32.0-36.0); MEAN CORPUSCULAR VOLUME 80 fl (80-97); MONOCYTES % (AUTO) 7.7 % (3-13); PLATELET COUNT 234 10^3/uL (150-450); RED BLOOD COUNT 4.35 10^6/uL (4.35-5.55); RED CELL DISTRIBUTION WIDTH 15.9 % (11.5-14.0); TOTAL CELLS COUNTED % (AUTO) 100 %; WHITE BLOOD COUNT 11.4 10^3/uL (4.0-10.5)
[2017-12-27 05:23] LABS: ALANINE AMINOTRANSFERASE 25 U/L (21-72); ALKALINE PHOSPHATASE 52 U/L (38-126); ANION GAP 10 (5-19); ASPARTATE AMINO TRANSFERASE 15 U/L (17-59); BILIRUBIN,DIRECT 0.2 mg/dL (0.0-0.4); BILIRUBIN,TOTAL 0.3 mg/dL (0.2-1.3); BLOOD UREA NITROGEN 28 mg/dL (7-20); CALCIUM 8.6 mg/dL (8.4-10.2); CARBON DIOXIDE 30 mmol/L (22-30); CHLORIDE 102 mmol/L (98-107); CHOLESTEROL 149.28 mg/dL (0-200); GLUCOSE 245 mg/dL (75-110); POTASSIUM 3.6 mmol/L (3.6-5.0); SODIUM 141.6 mmol/L (137-145); TOTAL PROTEIN 5.5 g/dL (6.3-8.2); TRIGLYCERIDES 85 mg/dL (<150)
[2017-12-27 05:34] LABS: DIRECT LDL 100 mg/dL (<100)
[2017-12-27 05:36] LABS: FREE T3 2.33 pg/mL (2.77-5.27); FREE T4 (FREE THYROXINE) 1.17 ng/dL (0.78-2.19)
[2017-12-27 05:49] LABS: THYROID STIMULATING HORMONE 1.27 uIU/mL (0.47-4.68)
[2017-12-27] MEDS ORDERED: MAG HYDROX/AL HYDROX/SIMETH SUSP 30 ML UDCUP PO PRN (07:04)
--- NOTE | 2017-12-27 08:18 | EKG REPORT ---
SEVERITY:- ABNORMAL ECG - SINUS RHYTHM NONSPECIFIC INTRAVENTRICULAR CONDUCTION DELAY : Confirmed by: Randi Kaye MD 27-Dec-2017 08:17:42
[2017-12-27 08:42] LABS: CREATINE KINASE MB 1.29 ng/mL (<4.55); TROPONIN I 0.03 ng/mL
--- NOTE | 2017-12-27 09:01 | PDOC CONSULTATION ---
Consultation Consult Date: 12/27/17 Attending physician:: DANIE MACIEL Consult reason:: abdominal distension, CT showing possible " kristopher mesentery". epigastric discomfort History of Present Illness Admission Date/PCP: 12/26/17 06:32 ANANDA FORTUNE MD History of Present Illness: AMAURY LAW is a 67 year old male Asked to see this patient by Dr Beltran patient admitted for other reasons but in the interim noted to have abdominal distension patient had CT scan, findings are non specific previous colonoscopy performed by Dr Taylor, previous note in 2010 has been having epigastric pain patient may need EGD cardiology consult has been obtained Dr Fortune requesting GI work up previous colonoscopy was apparently normal may need EGD to rule out peptic ulcer disease does not need colonoscopy until 2020 will arrange for testing tomorrow has some GERD on PPI patient has some symptoms of nausea and early satiety as well no melena Past Medical History Cardiac Medical History: Reports: Hypertension Denies: Coronary Artery Disease, Myocardial Infarction Pulmonary Medical History: Reports: Chronic Obstructive Pulmonary Disease (COPD) , Pneumonia, Sleep Apnea Denies: Asthma, Bronchitis Neurological Medical History: Denies: Seizures Endocrine Medical History: Reports: Diabetes Mellitus Type 2 GI Medical History: Reports: Gastroesophageal Reflux Disease Denies: Hepatitis, Hiatal Hernia Musculoskeltal Medical History: Denies: Arthritis Hematology: Denies: Anemia, Sickle Cell Disease Past Surgical History Past Surgical History: Denies: Pacemaker Social History Lives with: Family Smoking Status: Former Smoker Frequency of Alcohol Use: Rare Hx Recreational Drug Use: No Drugs: None Hx Prescription Drug Abuse: No Family History Family History: Reviewed & Not Pertinent Parental Family History Reviewed: Yes Children Family History Reviewed: Unknown Sibling(s) Family History Reviewed.: Unknown Medication/Allergy Home Medications: Aspirin [Aspirin EC] 81 mg PO DAILY 12/26/17 Hum Insulin NPH/Reg Insulin Hm [Insulin Inj 70-30 (100 Unit/1 ml) 3 ml Vial] 20 unit SUBCUT Q12 12/26/17 Ipratropium/Albuterol Sulfate [Duoneb 3 ml Ampul] 3 ml NEB RTQIDP PRN 12/26/17 Losartan Potassium [Cozaar 50 mg Tablet] 50 mg PO DAILY 12/26/17 Metformin HCl [Glucophage] 1,000 mg PO BID 12/26/17 Omeprazole 40 mg PO QPM 12/26/17 Pioglitazone HCl [Actos] 30 mg PO QPM 12/26/17 Allergies/Adverse Reactions: No Known Allergies Allergy (Verified 07/13/15 17:03) Review of Systems Constitutional: ABSENT: fever(s), headache(s), night sweats Eyes: ABSENT: visual disturbances Ears: ABSENT: hearing changes Nose, Mouth, and Throat: ABSENT: sore throat Cardiovascular: ABSENT: edema, orthropnea Respiratory: ABSENT: dyspnea, hemoptysis Gastrointestinal: ABSENT: coffee ground emesis, diarrhea, melena Musculoskeletal: ABSENT: deformity, joint swelling Integumentary: ABSENT: pruritus Neurological: ABSENT: syncope, tingling, tremor(s), vertigo Endocrine: ABSENT: polydipsia, polyphagia, polyuria Hematologic/Lymphatic: ABSENT: easy bruising Physical Exam Vital Signs: Temp Pulse Resp BP Pulse Ox 97.7 F 85 20 163/72 H 100 12/27/17 07:42 12/27/17 07:42 12/27/17 07:42 12/27/17 07:42 12/27/17 07:42 Intake & Output 12/26/17 12/27/17 12/28/17 06:59 06:59 06:59 Intake Total 100 787 Output Total 1670 Balance 100 -883 Weight 137.6 kg General appearance: PRESENT: no acute distress, well-developed, well-nourished Head exam: PRESENT: normocephalic Eye exam: PRESENT: EOMI, PERRLA. ABSENT: periorbital swelling, scleral icterus Mouth exam: PRESENT: moist, neck supple Throat exam: ABSENT: tonsillar exudate, tonsillogmegaly Neck exam: ABSENT: meningismus, tenderness, thyromegaly Respiratory exam: PRESENT: symmetrical, unlabored. ABSENT: tachypnea, wheezes Cardiovascular exam: PRESENT: RRR, +S1, +S2 GI/Abdominal exam: PRESENT: soft. ABSENT: rebound, rigid, tenderness Extremities exam: ABSENT: joint swelling Musculoskeletal exam: PRESENT: full ROM Neurological exam: PRESENT: oriented to time, oriented to situation, CN II-XII grossly intact Focused psych exam: ABSENT: restlessness Skin exam: PRESENT: normal color. ABSENT: mottled, pallor, petechiae, urticaria , vesicles Results Laboratory Results: 12/27/17 04:42 12/27/17 04:42 12/26/17 12/26/17 12/27/17 09:30 23:50 04:42 WBC 11.4 H RBC 4.35 Hgb 11.6 L Hct 34.9 L MCV 80 MCH 26.5 L MCHC 33.2 RDW 15.9 H Plt Count 234 Seg Neutrophils % 78.0 Lymphocytes % 13.8 Monocytes % 7.7 Eosinophils % 0.1 Basophils % 0.4 Absolute Neutrophils 8.9 H Absolute Lymphocytes 1.6 Absolute Monocytes 0.9 Absolute Eosinophils 0.0 Absolute Basophils 0.0 Carbonic Acid 1.46 H HCO3/H2CO3 Ratio 20:1 ABG pH 7.41 ABG pCO2 48.4 H ABG pO2 88.0 ABG HCO3 29.9 H ABG O2 Saturation 96.7 ABG Base Excess 4.3 FiO2 3 L Sodium Potassium Chloride Carbon Dioxide Anion Gap BUN Creatinine Est GFR ( Amer) Est GFR (Non-Af Amer) Glucose Calcium Total Bilirubin AST ALT Alkaline Phosphatase Total Protein Albumin Triglycerides Cholesterol LDL Cholesterol Direct VLDL Cholesterol HDL Cholesterol TSH Free T4 Free T3 pg/mL Urine Color [place] Urine Appearance CLOUDY Urine pH 5.0 Ur Specific [place] 1.037 Urine Protein >=500 H Urine Glucose (UA) >=500 H Urine Ketones NEGATIVE Urine Blood LARGE H Urine Nitrite NEGATIVE Ur Leukocyte Esterase NEGATIVE Urine WBC (Auto) 69 Urine RBC (Auto) >182 12/27/17 12/27/17 04:42 04:42 WBC RBC Hgb Hct MCV MCH MCHC RDW Plt Count Seg Neutrophils % Lymphocytes % Monocytes % Eosinophils % Basophils % Absolute Neutrophils Absolute Lymphocytes Absolute Monocytes Absolute Eosinophils Absolute Basophils Carbonic Acid HCO3/H2CO3 Ratio ABG pH ABG pCO2 ABG pO2 ABG HCO3 ABG O2 Saturation ABG Base Excess FiO2 Sodium 141.6 Potassium 3.6 Chloride 102 Carbon Dioxide 30 Anion Gap 10 BUN 28 H Creatinine 0.98 Est GFR ( Amer) > 60 Est GFR (Non-Af Amer) > 60 Glucose 245 H Calcium 8.6 Total Bilirubin 0.3 AST 15 L ALT 25 Alkaline Phosphatase 52 Total Protein 5.5 L Albumin 3.0 L Triglycerides 85 Cholesterol 149.28 LDL Cholesterol Direct 100 VLDL Cholesterol 17.0 HDL Cholesterol 43 TSH 1.27 Free T4 1.17 Free T3 pg/mL 2.33 L Urine Color Urine Appearance Urine pH Ur Specific [place] Urine Protein Urine Glucose (UA) Urine Ketones Urine Blood Urine Nitrite Ur Leukocyte Esterase Urine WBC (Auto) Urine RBC (Auto) 12/26/17 12/26/17 12/26/17 10:17 10:17 16:05 Creatine Kinase 56 55 CK-MB (CK-2) 1.15 Troponin I 0.019 NT-Pro-B Natriuret Pep 12/26/17 12/26/17 12/26/17 16:05 22:04 22:04 Creatine Kinase 51 L CK-MB (CK-2) 1.30 1.12 Troponin I 0.019 0.027 NT-Pro-B Natriuret Pep 12/27/17 12/27/17 04:42 07:39 Creatine Kinase CK-MB (CK-2) 1.29 Troponin I 0.030 NT-Pro-B Natriuret Pep 2200 H Impressions: Abdomen/Pelvis CT 12/26/17 00:00 IMPRESSION: 1. SLIGHT HAZY APPEARANCE OF THE MESENTERY, "KRISTOPHER MESENTERY" . THIS IS A NONSPECIFIC FINDING AND COULD BE INCIDENTAL BUT COULD BE INDICATIVE OF INFLAMMATORY PROCESS. 2. NO OTHER SIGNIFICANT OR ACUTE FINDING IN THE ABDOMEN OR PELVIS ON CT SCAN WITH IV CONTRAST. Chest/Abdomen CTA 12/26/17 00:00 IMPRESSION: 1. NORMAL CTA OF THE CHEST. NO PULMONARY EMBOLI. 2. MODERATE BILATERAL PLEURAL EFFUSIONS WITH SCATTERED BASILAR ATELECTASIS. Chest X-Ray 12/26/17 04:22 IMPRESSION: Patchy parenchymal opacities in the left perihilar region and left lung base and to a lesser degree the right lung base possibly due to atelectasis versus an infectious or inflammatory process Assessment & Plan - Diagnosis (1) Abdominal distension Is this a current diagnosis for this admission?: Yes Plan: CT scan findings are non specific no obstruction is noted previous colonoscopy reported normal by Dr Taylor (2) Nausea & vomiting Qualifiers: Vomiting type: unspecified Vomiting Intractability: non-intractable Qualified Code(s): R11.2 - Nausea with vomiting, unspecified Plan: has some epigastric discomfort and fullness as well will need EGD Risks, benefits and alternatives are discussed with the patient in detail further recommendations to follow - Time Time Spent: 50 to 70 Minutes
--- NOTE | 2017-12-27 09:44 | PDOC PROGRESS REPORT ---
Subjective Progress Note for:: 12/27/17 Subjective:: Patient is currently doing well Patient's denied any shortness of the breath but have episode of the chest pain this morning which patients described as sharp while coughing Patient CT angiogram was negative for Pulmonary embolism but bilateral pleural effusion and pneumonia CT abdomen pelvis so the Mr. mejia She is denied any abdominal pain no nausea no vomiting but still has some difficulty in swallowing sometimes Patient seen by the cardiology possible right-sided heart failure EKG this morning and cardiac enzyme is all stable most likely a pain of the chest wall pain with the coughing or may be pleurisy Discussed with at the bedside regarding the patient's current condition all test reports Reason For Visit: PNEUMONIA Physical Exam Vital Signs: Temp Pulse Resp BP Pulse Ox 97.7 F 85 20 163/72 H 100 12/27/17 07:42 12/27/17 07:42 12/27/17 07:42 12/27/17 07:42 12/27/17 07:42 Intake & Output 12/26/17 12/27/17 12/28/17 06:59 06:59 06:59 Intake Total 100 787 Output Total 1670 Balance 100 -883 Weight 137.6 kg General appearance: PRESENT: no acute distress, well-developed, well-nourished Head exam: PRESENT: atraumatic, normocephalic Eye exam: PRESENT: conjunctiva pink, EOMI, PERRLA. ABSENT: scleral icterus Ear exam: PRESENT: normal external ear exam Mouth exam: PRESENT: moist, tongue midline Neck exam: PRESENT: full ROM. ABSENT: carotid bruit, JVD, lymphadenopathy, thyromegaly Respiratory exam: PRESENT: decreased breath sounds Cardiovascular exam: PRESENT: RRR. ABSENT: diastolic murmur, rubs, systolic murmur Pulses: PRESENT: normal dorsalis pedis pul, +2 pedal pulses bilateral Vascular exam: PRESENT: normal capillary refill GI/Abdominal exam: PRESENT: normal bowel sounds, soft. ABSENT: distended, guarding, mass, organolmegaly, rebound, tenderness Rectal exam: PRESENT: deferred Neurological exam: PRESENT: alert, awake, oriented to person, oriented to place , oriented to time, oriented to situation, CN II-XII grossly intact. ABSENT: motor sensory deficit Psychiatric exam: PRESENT: appropriate affect, normal mood. ABSENT: homicidal ideation, suicidal ideation Skin exam: PRESENT: dry, intact, warm. ABSENT: cyanosis, rash Results Laboratory Results: 12/27/17 04:42 12/27/17 04:42 12/26/17 12/26/17 12/27/17 09:30 23:50 04:42 WBC 11.4 H RBC 4.35 Hgb 11.6 L Hct 34.9 L MCV 80 MCH 26.5 L MCHC 33.2 RDW 15.9 H Plt Count 234 Seg Neutrophils % 78.0 Lymphocytes % 13.8 Monocytes % 7.7 Eosinophils % 0.1 Basophils % 0.4 Absolute Neutrophils 8.9 H Absolute Lymphocytes 1.6 Absolute Monocytes 0.9 Absolute Eosinophils 0.0 Absolute Basophils 0.0 Carbonic Acid 1.46 H HCO3/H2CO3 Ratio 20:1 ABG pH 7.41 ABG pCO2 48.4 H ABG pO2 88.0 ABG HCO3 29.9 H ABG O2 Saturation 96.7 ABG Base Excess 4.3 FiO2 3 L Sodium Potassium Chloride Carbon Dioxide Anion Gap BUN Creatinine Est GFR ( Amer) Est GFR (Non-Af Amer) Glucose Calcium Total Bilirubin AST ALT Alkaline Phosphatase Total Protein Albumin Triglycerides Cholesterol LDL Cholesterol Direct VLDL Cholesterol HDL Cholesterol TSH Free T4 Free T3 pg/mL Urine Color [place] Urine Appearance CLOUDY Urine pH 5.0 Ur Specific [place] 1.037 Urine Protein >=500 H Urine Glucose (UA) >=500 H Urine Ketones NEGATIVE Urine Blood LARGE H Urine Nitrite NEGATIVE Ur Leukocyte Esterase NEGATIVE Urine WBC (Auto) 69 Urine RBC (Auto) >182 12/27/17 12/27/17 04:42 04:42 WBC RBC Hgb Hct MCV MCH MCHC RDW Plt Count Seg Neutrophils % Lymphocytes % Monocytes % Eosinophils % Basophils % Absolute Neutrophils Absolute Lymphocytes Absolute Monocytes Absolute Eosinophils Absolute Basophils Carbonic Acid HCO3/H2CO3 Ratio ABG pH ABG pCO2 ABG pO2 ABG HCO3 ABG O2 Saturation ABG Base Excess FiO2 Sodium 141.6 Potassium 3.6 Chloride 102 Carbon Dioxide 30 Anion Gap 10 BUN 28 H Creatinine 0.98 Est GFR ( Amer) > 60 Est GFR (Non-Af Amer) > 60 Glucose 245 H Calcium 8.6 Total Bilirubin 0.3 AST 15 L ALT 25 Alkaline Phosphatase 52 Total Protein 5.5 L Albumin 3.0 L Triglycerides 85 Cholesterol 149.28 LDL Cholesterol Direct 100 VLDL Cholesterol 17.0 HDL Cholesterol 43 TSH 1.27 Free T4 1.17 Free T3 pg/mL 2.33 L Urine Color Urine Appearance Urine pH Ur Specific [place] Urine Protein Urine Glucose (UA) Urine Ketones Urine Blood Urine Nitrite Ur Leukocyte Esterase Urine WBC (Auto) Urine RBC (Auto) 12/26/17 12/26/17 12/26/17 10:17 10:17 16:05 Creatine Kinase 56 55 CK-MB (CK-2) 1.15 Troponin I 0.019 NT-Pro-B Natriuret Pep 12/26/17 12/26/17 12/26/17 16:05 22:04 22:04 Creatine Kinase 51 L CK-MB (CK-2) 1.30 1.12 Troponin I 0.019 0.027 NT-Pro-B Natriuret Pep 12/27/17 12/27/17 12/27/17 04:42 07:39 07:39 Creatine Kinase 54 L CK-MB (CK-2) 1.29 Troponin I 0.030 NT-Pro-B Natriuret Pep 2200 H Impressions: Abdomen/Pelvis CT 12/26/17 00:00 IMPRESSION: 1. SLIGHT HAZY APPEARANCE OF THE MESENTERY, "ANETA MESENTERY" . THIS IS A NONSPECIFIC FINDING AND COULD BE INCIDENTAL BUT COULD BE INDICATIVE OF INFLAMMATORY PROCESS. 2. NO OTHER SIGNIFICANT OR ACUTE FINDING IN THE ABDOMEN OR PELVIS ON CT SCAN WITH IV CONTRAST. Chest/Abdomen CTA 12/26/17 00:00 IMPRESSION: 1. NORMAL CTA OF THE CHEST. NO PULMONARY EMBOLI. 2. MODERATE BILATERAL PLEURAL EFFUSIONS WITH SCATTERED BASILAR ATELECTASIS. Assessment & Plan - Diagnosis (1) COPD (chronic obstructive pulmonary disease) with acute bronchitis Is this a current diagnosis for this admission?: Yes Plan: cont neb (2) Hypertension Qualifiers: Hypertension type: essential hypertension Qualified Code(s): I10 - Essential (primary) hypertension Is this a current diagnosis for this admission?: Yes Plan: Add Norvasc 2.5 mg p.o. twice a day (3) Pneumonia Qualifiers: Pneumonia type: due to unspecified organism Laterality: bilateral Lung location: unspecified part of lung Qualified Code(s): J18.9 - Pneumonia, unspecified organism Is this a current diagnosis for this admission?: Yes Plan: Changed to p.o. doxycycline to the IV right because of the QT interval patients unable to take any Levaquin and will try to avoid any esophagitis the p.o. medications (4) Shortness of breath Is this a current diagnosis for this admission?: Yes Plan: possible copd/pnemonia but will r/o other possiblity order echo order cta (5) Abdominal distension Is this a current diagnosis for this admission?: Yes Plan: Patient CT abdomen pelvis with no acute finding except some mild inflammations Consult GI for further evaluations (6) Sleep apnea Qualifiers: Sleep apnea type: unspecified type Qualified Code(s): G47.30 - Sleep apnea , unspecified Is this a current diagnosis for this admission?: Yes Plan: cont use c pap (7) Pleural effusion Is this a current diagnosis for this admission?: Yes Plan: Will continues to IV antibiotic and Lasix repeat chest x-ray the persistent issue need for thoracocentesis - Time Time Spent with patient: 15-24 minutes Medications reviewed and adjusted accordingly: Yes Anticipated discharge: Home Within: Other - Inpatient Certification Based on my medical assessment, after consideration of the patient's comorbidities, presenting symptoms, or acuity I expect that the services needed warrant INPATIENT care.: Yes I certify that my determination is in accordance with my understanding of Medicare's requirements for reasonable and necessary INPATIENT services [42 CFR 412.3e].: Yes Medical Necessity: Need Close Monitoring Due to Risk of Patient Decompensation, Need for IV Antibiotics Post Hospital Care: D/C Manual Plate Filler Documentation - Plan Summary Plan Summary: cont curr med
[2017-12-27] MEDS: ENOXAPARIN SODIUM INJ 40 MG/0.4 ML DISP.SYRIN SUBCUT SCH (09:54)
[2017-12-27] MEDS: HUM INSULIN NPH/REG INSULIN HM 100 UNIT/1 ML 3 ML SUBCUT SCH ×2 (09:55→21:42)
[2017-12-27] MEDS: DOXYCYCLINE HYCLATE 100 MG in DEXTROSE 5%-WATER 250 ML IV SCH ×2 (09:57→22:15)
[2017-12-27] MEDS: FAMOTIDINE 20 MG TABLET PO SCH ×2 (09:58→21:42)
[2017-12-27] MEDS: FUROSEMIDE INJ/PF 20 MG/2 ML SDV IV SCH ×2 (09:58→21:41)
[2017-12-27] MEDS: ACETAMINOPHEN 325 MG TABLET PO PRN (09:58)
[2017-12-27] MEDS: LOSARTAN POTASSIUM 50 MG TABLET PO SCH ×2 (09:58→21:40)
[2017-12-27] MEDS: GUAIFENESIN 600 MG TABLET.SA PO SCH ×2 (09:59→21:42)
[2017-12-27] MEDS: ASPIRIN 81 MG TABLET, ENT COATED PO SCH (09:59)
[2017-12-27] MEDS ORDERED: AMLODIPINE BESYLATE 2.5 MG TABLET PO SCH (10:00)
[2017-12-27] MEDS ORDERED: LOSARTAN POTASSIUM 50 MG TABLET PO SCH (10:00)
--- NOTE | 2017-12-27 10:01 | RADIOLOGY REPORT (SQ) ---
EXAM DESCRIPTION: CHEST SINGLE VIEW COMPLETED DATE/TIME: 12/27/2017 9:45 am REASON FOR STUDY: copd/cp COMPARISON: 12/26/2017. EXAM PARAMETERS: NUMBER OF VIEWS: One view. TECHNIQUE: Single frontal radiographic view of the chest acquired. RADIATION DOSE: NA LIMITATIONS: None. FINDINGS: LUNGS AND PLEURA: Patchy basilar densities, right greater than left. Scattered linear ate lectasis. MEDIASTINUM AND HILAR STRUCTURES: No masses. Contour normal. HEART AND VASCULAR STRUCTURES: Cardiomegaly. BONES: No acute findings. HARDWARE: None in the chest. OTHER: No other significant finding. IMPRESSION: RIGHT BASILAR AIRSPACE DISEASE SLIGHTLY MORE PROMINENT. THIS COULD BE DUE TO PROGRESSIV E ATELECTASIS VERSUS DEVELOPING PNEUMONIA. TECHNICAL DOCUMENTATION: JOB ID: [id number] [employer]- All Rights Reserved Reading location - IP/workstation name: [facility]
--- NOTE | 2017-12-27 10:19 | Physician Advisory Note ---
Physician Advisor ProgressNote .: Pursuant to the plan for [facility], I have reviewed the medical record for this patient. Physician Advisor Statement: Addendum r.e. status: Pt has had continued hypoxemia, as low as 94% on 3L on 12/26 afternoon (no usual need for O2 at baseline). Pt has dev'd abd distension, epig pain, N/V, attg concerned & ordered GI eval. BNP has climbed in spite of Lasix, which has been increased somewhat. Pt found to have pleural effusions & PNA, attg concerned for possible need for thoracentesis. ... Appropriate for Inpt status. CK
[2017-12-27] MEDS: CEFEPIME 2 GM/D5W RTU 2 GM/50 ML RTUPB IV SCH (12:02)
[2017-12-27 16:19] LABS: CREATINE KINASE MB 1.57 ng/mL (<4.55); TROPONIN I 0.026 ng/mL
[2017-12-27] MEDS ORDERED: HYDRALAZINE HCL INJ/PF 20 MG/1 ML SDV IV PRN (17:23)
[2017-12-27] MEDS: LANSOPRAZOLE 30 MG TAB.RAP.DR PO SCH (17:57)
[2017-12-27] MEDS: PIOGLITAZONE HCL 30 MG TABLET PO SCH (17:57)
[2017-12-27] MEDS ORDERED: KETOROLAC TROMETHAMINE INJ/PF 30 MG/1 ML SDV IV PRN (19:45)
[2017-12-27 19:59] LABS: CREATINE KINASE MB 1.58 ng/mL (<4.55); TROPONIN I 0.029 ng/mL
[2017-12-27] MEDS ORDERED: BUSPIRONE HCL 10 MG TABLET PO ONE (20:00)
[2017-12-27 20:28] LABS: ARTERIAL BLOOD BASE EXCESS 6.7 mmol/L; ARTERIAL BLOOD H2CO3 1.24 mmol/L (1.05-1.35); ARTERIAL BLOOD HCO3 30.6 mmol/L (20-24); ARTERIAL BLOOD PCO2 41.3 mmHg (35-45); ARTERIAL BLOOD PH 7.49 (7.35-7.45); ARTERIAL BLOOD PO2 84.2 mmHg (80-100); ARTERIAL BLOOD TOTAL CO2 31.9 mmol/L (23-27)
[2017-12-27 20:29] LABS: ARTERIAL BLOOD FIO2 3L
--- NOTE | 2017-12-27 20:49 | Progress Note ---
Provider Note Provider Note: Cardiology progress notes by Dr. Randi Looney on 12/27/2017. SUBJECTIVE: The patient states his breathing is better, but he still wheezing. He still has a cough but is unable to bring up any sputum. This morning he had pleuritic/sharp chest pains in the left front of the chest, clearly noncardiac. His troponin I is negative. His EKG does not show any acute changes. He states that he has no PND orthopnea. His leg edema is on much improved with there being only trace pedal edema bilaterally. He denies any palpitations. Attempts to get another set of imaging by echo was not very successful, although the limited views his LV ejection fraction was probably normal. But this is not reliable. Unable to see the right side. There is no aortic stenosis or aortic regurgitation, but unable to comment on the tricuspid valve the mitral valve. Hence cannot assess pulmonary hypertension. Discussed with the patient and patient's about getting a MUGA scan first pass for RVEF and LVEF. There is no TIA CVA symptoms. PHYSICAL EXAMINATION: The patient is morbidly obese. At present in no acute distress. He is well-groomed. Selected Entries 12/27/17 15:15 Temperature 98.1 F Temperature Oral Source Pulse Rate 94 Respiratory 20 Rate Blood Pressure 195/85 H Blood Pressure 121 Mean BP Location Right Arm BP Position Supine O2 Sat by Pulse 99 Oximetry Oxygen Flow 3.50 Rate Oxygen Delivery Nasal Cannula Method HEAD: Is atraumatic normocephalic. EYES: Pupils are equal round regular reactive to light accommodation. Extraocular movements are normal. There is no conjunctival pallor. T ABDOMEN here is no scleral icterus. EARS: Tympanic membranes are intact. Extremity external auditory canals are clear. NOSE: There is no inflammation of the nasal mucous membrane. There is no deviated nasal septum. MOUTH: Mucous membranes of mouth are moist tongue is moist, there is no ulcers in the mouth. There is no bleeding from the gums. THROAT: There is no redness of the oropharynx. There is no exudates. SKIN: There is no skin lesions or skin rashes. There is no particular ecchymosis. NECK: Is supple. There is no definite JVD. Carotids are equal without any bruits. There is no lymphadenopathy. There is no goiter. There is no accessory muscles of respiration use. Trachea central. LUNGS: There is absent breath sounds in both bases. With dullness on percussion in these areas. There is scattered rhonchi and wheezing. There is no definite rales of CHF. ABDOMEN: Is obese. Nontender. There is no hepatosplenic megaly. Bowel sounds are well heard. There is no rebound guarding or rigidity. EXTREMITIES: Femorals are deep. Femorals are decreased. There is no femoral bruits. There is some mild pedal edema. There is no DVT or cellulitis. There is no calf tenderness. Leg pulses are diminished,slightly. There is no cyanosis or clubbing. Capillary refill is normal. MANAGER ADMINISTRATIVE: The patient is conscious awake alert, oriented x3. There is no focal deficits. PSYCHIATRIC: The patient judgment and insight are intact his affect is normal. 12/26/17 12/27/17 12/27/17 15:26 04:42 04:42 WBC 11.4 H Hgb 11.6 L Hct 34.9 L Plt Count 234 Sodium 141.6 Potassium 3.6 Chloride 102 Carbon Dioxide 30 Anion Gap 10 BUN 28 H Creatinine 0.98 Est GFR (Non-Af Amer) > 60 Glucose 245 H POC Glucose Calcium 8.6 Total Bilirubin 0.3 Direct Bilirubin 0.2 Neonat Total Bilirubin Not Reportable Neonat Direct Bilirubin Not Reportable Neonat Indirect Bili Not Reportable AST 15 L ALT 25 Alkaline Phosphatase 52 Creatine Kinase CK-MB (CK-2) Troponin I NT-Pro-B Natriuret Pep Total Protein 5.5 L Albumin 3.0 L Triglycerides 85 Cholesterol 149.28 LDL Cholesterol Direct 100 VLDL Cholesterol 17.0 HDL Cholesterol 43 TSH Free T4 Free T3 pg/mL Influenza A (Rapid) NEGATIVE Influenza B (Rapid) NEGATIVE 12/27/17 12/27/17 12/27/17 04:42 04:42 06:27 WBC Hgb Hct Plt Count Sodium Potassium Chloride Carbon Dioxide Anion Gap BUN Creatinine Est GFR (Non-Af Amer) Glucose POC Glucose 219 H Calcium Total Bilirubin Direct Bilirubin Neonat Total Bilirubin Neonat Direct Bilirubin Neonat Indirect Bili AST ALT Alkaline Phosphatase Creatine Kinase CK-MB (CK-2) Troponin I NT-Pro-B Natriuret Pep 2200 H Total Protein Albumin Triglycerides Cholesterol LDL Cholesterol Direct VLDL Cholesterol HDL Cholesterol TSH 1.27 Free T4 1.17 Free T3 pg/mL 2.33 L Influenza A (Rapid) Influenza B (Rapid) 12/27/17 12/27/17 12/27/17 07:39 07:39 09:43 WBC Hgb Hct Plt Count Sodium Potassium Chloride Carbon Dioxide Anion Gap BUN Creatinine Est GFR (Non-Af Amer) Glucose POC Glucose 206 H Calcium Total Bilirubin Direct Bilirubin Neonat Total Bilirubin Neonat Direct Bilirubin Neonat Indirect Bili AST ALT Alkaline Phosphatase Creatine Kinase 54 L CK-MB (CK-2) 1.29 Troponin I 0.030 NT-Pro-B Natriuret Pep Total Protein Albumin Triglycerides Cholesterol LDL Cholesterol Direct VLDL Cholesterol HDL Cholesterol TSH Free T4 Free T3 pg/mL Influenza A (Rapid) Influenza B (Rapid) 12/27/17 12/27/17 12/27/17 15:00 15:00 19:12 WBC Hgb Hct Plt Count Sodium Potassium Chloride Carbon Dioxide Anion Gap BUN Creatinine Est GFR (Non-Af Amer) Glucose POC Glucose Calcium Total Bilirubin Direct Bilirubin Neonat Total Bilirubin Neonat Direct Bilirubin Neonat Indirect Bili AST ALT Alkaline Phosphatase Creatine Kinase 108 122 CK-MB (CK-2) 1.57 Troponin I 0.026 NT-Pro-B Natriuret Pep Total Protein Albumin Triglycerides Cholesterol LDL Cholesterol Direct VLDL Cholesterol HDL Cholesterol TSH Free T4 Free T3 pg/mL Influenza A (Rapid) Influenza B (Rapid) 12/27/17 19:12 WBC Hgb Hct Plt Count Sodium Potassium Chloride Carbon Dioxide Anion Gap BUN Creatinine Est GFR (Non-Af Amer) Glucose POC Glucose Calcium Total Bilirubin Direct Bilirubin Neonat Total Bilirubin Neonat Direct Bilirubin Neonat Indirect Bili AST ALT Alkaline Phosphatase Creatine Kinase CK-MB (CK-2) 1.58 Troponin I 0.029 NT-Pro-B Natriuret Pep Total Protein Albumin Triglycerides Cholesterol LDL Cholesterol Direct VLDL Cholesterol HDL Cholesterol TSH Free T4 Free T3 pg/mL Influenza A (Rapid) Influenza B (Rapid) CHEST X-ray: Shows bilateral patchy infiltrates, right greater than left, and pleural effusions bilaterally. No evidence of heart failure. EKG: Shows sinus rhythm with nonspecific IVCD. There are no acute changes. IMPRESSION/RECOMMENDATION: 1. Shortness of breath, with orthopnea, and leg edema: This could be secondary to a combination of the patient's patchy pneumonitis/acute exacerbation of COPD with possible pulmonary hypertension causing right heart failure. Patient needs a good echocardiogram. Will try to repeat this. At present agree with continue Lasix 20 mg IV daily, and continue antibiotics and respiratory treatments. 2. Acute exacerbation of COPD: Continue current respiratory treatments, would recommend steroids, antibiotics. 3. Patchy Pneumonitis by chest x-ray: Agree with the antibiotics and respiratory treatments. 4. Needs assessment for pulmonary hypertension. Note repeat attempted echo imaging not very successful. Hence will get a first pass MUGA scan for RVEF, and LV ejection fraction. 5. Hypertension: Not very well controlled. Would recommend increase the patient's antihypertensives. We will add hydralazine. 6. Diabetes mellitus type 2: Continue current anti-diabetic medication. 7. Obstructive Sleep Apnea: Continue CPAP. Would need to make sure that patient recently had his CPAP titrated. 8. Morbid Obesity: 9. Chronic back pain. 10. Chest Pain: Noncardiac. No acute EKG changes, no evidence of elevation of troponin I/cardiac biomarkers. Hence clearly noncardiac. Medications have been reviewed medications added. Discussed with Dr. Fortune the attending physician on the case. Medical decision making is of high complexity. 40 minutes spent on this patient with more than 50% of time spent in direct patient care. Discussed with the patient and the patient's , all questions answered.
[2017-12-27] MEDS: AMLODIPINE BESYLATE 5 MG TABLET PO SCH (21:42)
[2017-12-28] MEDS: IPRATROPIUM/ALBUTEROL 0.5-2.5 MG/3 ML AMPUL NEB SCH ×7 (00:11→23:56)
[2017-12-28] MEDS: CEFEPIME 2 GM/D5W RTU 2 GM/50 ML RTUPB IV SCH ×2 (00:20→15:16)
[2017-12-28] MEDS: HYDRALAZINE HCL 50 MG TABLET PO SCH ×4 (00:20→17:53)
[2017-12-28] MEDS: HYDRALAZINE HCL INJ/PF 20 MG/1 ML SDV IV PRN ×3 (04:16→15:25)
[2017-12-28 06:04] LABS: ABSOLUTE BASOPHILS # (AUTO) 0.1 10^3/uL (0.0-0.2); ABSOLUTE EOSINOPHILS # (AUTO) 0.2 10^3/uL (0.0-0.6); ABSOLUTE LYMPHOCYTES (AUTO) 1.8 10^3/uL (0.5-4.7); ABSOLUTE MONOCYTES (AUTO) 0.9 10^3/uL (0.1-1.4); ABSOLUTE NEUT (AUTO) 8.1 10^3/uL (1.7-8.2); BASOPHILS % (AUTO) 0.5 % (0-2); EOSINOPHILS % (AUTO) 1.9 % (0-6); HEMATOCRIT 37.8 % (37.9-51.0); HEMOGLOBIN 12.6 g/dL (13.5-17.0); LYMPHOCYTES % (AUTO) 16.3 % (13-45); MEAN CORPUSCULAR HEMOGLOBIN 26.9 pg (27.0-33.4); MEAN CORPUSCULAR HGB CONC 33.3 g/dL (32.0-36.0); MEAN CORPUSCULAR VOLUME 81 fl (80-97); MONOCYTES % (AUTO) 7.7 % (3-13); PLATELET COUNT 267 10^3/uL (150-450); RED BLOOD COUNT 4.69 10^6/uL (4.35-5.55); RED CELL DISTRIBUTION WIDTH 15.9 % (11.5-14.0); SEGMENTED NEUTROPHILS % (AUTO) 73.6 % (42-78); TOTAL CELLS COUNTED % (AUTO) 100 %
[2017-12-28] MEDS: ACETAMINOPHEN 325 MG TABLET PO PRN ×2 (06:04→16:01)
[2017-12-28 06:28] LABS: ALANINE AMINOTRANSFERASE 41 U/L (21-72); ALBUMIN 3.3 g/dL (3.5-5.0); ALKALINE PHOSPHATASE 62 U/L (38-126); ANION GAP 13 (5-19); ASPARTATE AMINO TRANSFERASE 38 U/L (17-59); BILIRUBIN,DIRECT 0.3 mg/dL (0.0-0.4); BILIRUBIN,TOTAL 0.8 mg/dL (0.2-1.3); BLOOD UREA NITROGEN 21 mg/dL (7-20); CALCIUM 8.7 mg/dL (8.4-10.2); CARBON DIOXIDE 30 mmol/L (22-30); CHLORIDE 101 mmol/L (98-107); GLUCOSE 107 mg/dL (75-110); POTASSIUM 3.9 mmol/L (3.6-5.0); SODIUM 143.9 mmol/L (137-145); TOTAL PROTEIN 5.8 g/dL (6.3-8.2)
--- NOTE | 2017-12-28 08:48 | PDOC PROGRESS REPORT ---
Subjective Progress Note for:: 12/28/17 Subjective:: Patient is currently doing much better after using the BiPAP immediately patients feel better Patient also get much better after the dose of the Toradol Patient scheduled for the stress test today Denied any chest pain denied any shortness of the breath Reason For Visit: PNEUMONIA Physical Exam Vital Signs: Temp Pulse Resp BP Pulse Ox 97.5 F 77 17 163/70 H 100 12/28/17 07:46 12/28/17 07:46 12/28/17 07:46 12/28/17 07:46 12/28/17 07:46 Intake & Output 12/27/17 12/28/17 12/29/17 06:59 06:59 06:59 Intake Total 787 615 300 Output Total 1670 2725 Balance -883 -2110 300 Weight 137.6 kg 134.7 kg General appearance: PRESENT: no acute distress, well-developed, well-nourished Head exam: PRESENT: atraumatic, normocephalic Eye exam: PRESENT: conjunctiva pink, EOMI, PERRLA. ABSENT: scleral icterus Ear exam: PRESENT: normal external ear exam Mouth exam: PRESENT: moist, tongue midline Neck exam: PRESENT: full ROM. ABSENT: carotid bruit, JVD, lymphadenopathy, thyromegaly Respiratory exam: PRESENT: decreased breath sounds Cardiovascular exam: PRESENT: RRR. ABSENT: diastolic murmur, rubs, systolic murmur Pulses: PRESENT: normal dorsalis pedis pul, +2 pedal pulses bilateral Vascular exam: PRESENT: normal capillary refill GI/Abdominal exam: PRESENT: normal bowel sounds, soft. ABSENT: distended, guarding, mass, organolmegaly, rebound, tenderness Rectal exam: PRESENT: deferred Extremities exam: ABSENT: pedal edema Neurological exam: PRESENT: alert, awake, oriented to person, oriented to place , oriented to time, oriented to situation, CN II-XII grossly intact. ABSENT: motor sensory deficit Psychiatric exam: PRESENT: appropriate affect, normal mood. ABSENT: homicidal ideation, suicidal ideation Skin exam: PRESENT: dry, intact, warm. ABSENT: cyanosis, rash Results Laboratory Results: 12/28/17 05:28 12/28/17 05:28 12/27/17 12/28/17 12/28/17 20:20 05:28 05:28 WBC 11.0 H RBC 4.69 Hgb 12.6 L Hct 37.8 L MCV 81 MCH 26.9 L MCHC 33.3 RDW 15.9 H Plt Count 267 Seg Neutrophils % 73.6 Lymphocytes % 16.3 Monocytes % 7.7 Eosinophils % 1.9 Basophils % 0.5 Absolute Neutrophils 8.1 Absolute Lymphocytes 1.8 Absolute Monocytes 0.9 Absolute Eosinophils 0.2 Absolute Basophils 0.1 Carbonic Acid 1.24 HCO3/H2CO3 Ratio 24:1 ABG pH 7.49 H ABG pCO2 41.3 ABG pO2 84.2 ABG HCO3 30.6 H ABG O2 Saturation 97.0 ABG Base Excess 6.7 FiO2 3L Sodium 143.9 Potassium 3.9 Chloride 101 Carbon Dioxide 30 Anion Gap 13 BUN 21 H Creatinine 0.65 Est GFR ( Amer) > 60 Est GFR (Non-Af Amer) > 60 Glucose 107 Calcium 8.7 Total Bilirubin 0.8 AST 38 ALT 41 Alkaline Phosphatase 62 Total Protein 5.8 L Albumin 3.3 L 12/26/17 12/26/17 12/26/17 10:17 10:17 16:05 Creatine Kinase 56 55 CK-MB (CK-2) 1.15 Troponin I 0.019 NT-Pro-B Natriuret Pep 12/26/17 12/26/17 12/26/17 16:05 22:04 22:04 Creatine Kinase 51 L CK-MB (CK-2) 1.30 1.12 Troponin I 0.019 0.027 NT-Pro-B Natriuret Pep 12/27/17 12/27/17 12/27/17 04:42 07:39 07:39 Creatine Kinase 54 L CK-MB (CK-2) 1.29 Troponin I 0.030 NT-Pro-B Natriuret Pep 2200 H 12/27/17 12/27/17 12/27/17 15:00 15:00 19:12 Creatine Kinase 108 122 CK-MB (CK-2) 1.57 Troponin I 0.026 NT-Pro-B Natriuret Pep 12/27/17 12/28/17 19:12 05:28 Creatine Kinase CK-MB (CK-2) 1.58 Troponin I 0.029 NT-Pro-B Natriuret Pep 1070 H Impressions: Abdomen/Pelvis CT 12/26/17 00:00 IMPRESSION: 1. SLIGHT HAZY APPEARANCE OF THE MESENTERY, "ANETA MESENTERY" . THIS IS A NONSPECIFIC FINDING AND COULD BE INCIDENTAL BUT COULD BE INDICATIVE OF INFLAMMATORY PROCESS. 2. NO OTHER SIGNIFICANT OR ACUTE FINDING IN THE ABDOMEN OR PELVIS ON CT SCAN WITH IV CONTRAST. Chest/Abdomen CTA 12/26/17 00:00 IMPRESSION: 1. NORMAL CTA OF THE CHEST. NO PULMONARY EMBOLI. 2. MODERATE BILATERAL PLEURAL EFFUSIONS WITH SCATTERED BASILAR ATELECTASIS. Chest X-Ray 12/27/17 00:00 IMPRESSION: RIGHT BASILAR AIRSPACE DISEASE SLIGHTLY MORE PROMINENT. THIS COULD BE DUE TO PROGRESSIVE ATELECTASIS VERSUS DEVELOPING PNEUMONIA. Assessment & Plan - Diagnosis (1) COPD (chronic obstructive pulmonary disease) with acute bronchitis Is this a current diagnosis for this admission?: Yes Plan: cont neb (2) Hypertension Qualifiers: Hypertension type: essential hypertension Qualified Code(s): I10 - Essential (primary) hypertension Is this a current diagnosis for this admission?: Yes Plan: Add Norvasc 2.5 mg p.o. twice a day (3) Pneumonia Qualifiers: Pneumonia type: due to unspecified organism Laterality: bilateral Lung location: unspecified part of lung Qualified Code(s): J18.9 - Pneumonia, unspecified organism Is this a current diagnosis for this admission?: Yes Plan: Changed to p.o. doxycycline to the IV right because of the QT interval patients unable to take any Levaquin and will try to avoid any esophagitis the p.o. medications (4) Shortness of breath Is this a current diagnosis for this admission?: Yes Plan: Patient is currently using the BiPAP at night works much better compared to the CPAP will follow with the pulmonary probably need to readjust his CPAP (5) Abdominal distension Is this a current diagnosis for this admission?: Yes Plan: Currently all stable (6) Sleep apnea Qualifiers: Sleep apnea type: unspecified type Qualified Code(s): G47.30 - Sleep apnea , unspecified Is this a current diagnosis for this admission?: Yes Plan: cont use c pap (7) Pleural effusion Is this a current diagnosis for this admission?: Yes Plan: Will get the ultrasound for the chest and if is still fluid is there will get the thoracocentesis - Time Time Spent with patient: 15-24 minutes Medications reviewed and adjusted accordingly: Yes Anticipated discharge: Home Within: Other - Inpatient Certification Based on my medical assessment, after consideration of the patient's comorbidities, presenting symptoms, or acuity I expect that the services needed warrant INPATIENT care.: Yes Medical Necessity: Need Close Monitoring Due to Risk of Patient Decompensation, Need for IV Antibiotics Post Hospital Care: D/C Nutrition And Dietetics Instructor Documentation - Plan Summary Plan Summary: Discussed with the patient and the and the bedside and discussed with Dr. antonio mckinley
[2017-12-28] MEDS: ASPIRIN 81 MG TABLET, ENT COATED PO SCH (09:12)
[2017-12-28] MEDS: ENOXAPARIN SODIUM INJ 40 MG/0.4 ML DISP.SYRIN SUBCUT SCH (09:12)
[2017-12-28] MEDS: DOCUSATE SODIUM 100 MG CAPSULE PO SCH ×2 (10:23→17:54)
[2017-12-28] MEDS: LOSARTAN POTASSIUM 50 MG TABLET PO SCH ×2 (10:23→21:27)
[2017-12-28] MEDS: AMLODIPINE BESYLATE 5 MG TABLET PO SCH ×2 (10:23→21:27)
[2017-12-28] MEDS: GUAIFENESIN 600 MG TABLET.SA PO SCH ×2 (10:23→21:26)
[2017-12-28] MEDS: FUROSEMIDE INJ/PF 20 MG/2 ML SDV IV SCH ×2 (10:24→21:26)
[2017-12-28] MEDS: HUM INSULIN NPH/REG INSULIN HM 100 UNIT/1 ML 3 ML SUBCUT SCH ×2 (10:24→21:25)
[2017-12-28] MEDS: POLYETHYLENE GLYCOL 3350 POWDER 17 GM/1 PACKET PO SCH (10:24)
[2017-12-28] MEDS: FAMOTIDINE 20 MG TABLET PO SCH ×2 (10:24→21:27)
[2017-12-28] MEDS: DOXYCYCLINE HYCLATE 100 MG in DEXTROSE 5%-WATER 250 ML IV SCH ×2 (10:25→21:32)
--- NOTE | 2017-12-28 10:35 | RADIOLOGY REPORT (SQ) ---
EXAM DESCRIPTION: U/S CHEST COMPLETED DATE/TIME: 12/28/2017 9:40 am REASON FOR STUDY: pleural effusion COMPARISON: None. TECHNIQUE: Dynamic and static grayscale images acquired of the localized site of clinical concern an d recorded on PACS. Additional selected color Doppler and spectral images recorded. SITE OF CONCERN: Pleural spaces. LIMITATIONS: None. FINDINGS: SKIN AND SUBCUTANEOUS TISSUES: No masses. No fluid collections. No edema. No foreign dipak s. DEEP SOFT TISSUES/MUSCLES: Small bilateral pleural effusions, left greater than right. Volume estima jesse less than 500 cc. VASCULAR: No increased or decreased vascularity. No occlusions. OTHER: No other significant finding. IMPRESSION: Small bilateral pleural effusions. TECHNICAL DOCUMENTATION: JOB ID: [id number] [employer]- All Rights Reserved Reading location - IP/workstation name: [email or web address]
[2017-12-28] MEDS ORDERED: ONDANSETRON HCL INJ/PF 4 MG/2 ML SDV ONE (12:33)
[2017-12-28] MEDS ORDERED: FLUMAZENIL INJ 0.5 MG/5 ML VIAL ONE (12:34)
[2017-12-28] MEDS ORDERED: MIDAZOLAM 2 MG/2 ML INJ ONE (12:34)
[2017-12-28] MEDS ORDERED: NALOXONE HCL INJ/PF 0.4 MG/1 ML SDV ONE (12:34)
[2017-12-28] MEDS ORDERED: GLUCAGON,HUMAN RECOMB 1 MG INJ ONE (12:34)
[2017-12-28] MEDS ORDERED: EPINEPHRINE INJ 1 MG/10 ML DISP.SYRIN ONE (12:34)
[2017-12-28] MEDS ORDERED: FENTANYL CITRATE INJ/PF 100 MCG/2 ML AMPUL ONE (12:34)
--- NOTE | 2017-12-28 15:13 | RADIOLOGY REPORT (SQ) ---
EXAM DESCRIPTION: NM CARDIAC 1ST PASS COMPLETED DATE/TIME: 12/28/2017 2:45 pm REASON FOR STUDY: ASSESS RVEF % LVEF.Radiology to read. COMPARISON: None. RADIONUCLIDE AND DOSE: 25.8 mCi technetium 99m labeled red blood cells The route of agent administration: Intravenous TECHNIQUE: Following administration of the radionuclide, gated images of the heart are obtained in t hree projections. Left ventricular functional analysis performed. LIMITATIONS: None. FINDINGS: LEFT VENTRICULAR FUNCTION: EJECTION FRACTION: 72%. END-DIASTOLIC VOLUME: 189 mL. END-SYSTOLIC VOLUME: 57 mL. WALL MOTION: No focal wall motion abnormalities. OTHER: No other significant finding. IMPRESSION: NORMAL CARDIAC MUGA STUDY. NORMAL LEFT VENTRICULAR FUNCTION WITH VALUES ABOVE. TECHNICAL DOCUMENTATION: JOB ID: [id number] [employer]- All Rights Reserved Reading location - IP/workstation name: [email or web address]
--- NOTE | 2017-12-28 15:13 | Operative Report ---
Operative Report DATE OF SURGERY: 12/28/17 Operative Report: The risks benefits and alternatives of the procedure explained to the patient in detail and informed consent is obtained.A GIF Olympus video scope was inserted into the patient's mouth and hypopharynx, the esophagus is identified intubated and insufflated, the scope was then advanced through the esophagus stomach and duodenum, retroflexion maneuver is done the esophagus stomach and first and second portions of the duodenum examined PREOPERATIVE DIAGNOSIS: Epigastric pain, nausea vomiting POSTOPERATIVE DIAGNOSIS: Gastritis status post biopsy. Esophagitis versus Edgar's status post biopsy OPERATION: EGD with biopsy SURGEON: DANIE MACIEL ANESTHESIA: Moderate Sedation - 2 mg of Versed, 75 mics of fentanyl. Conscious sedation monitoring time 30 minutes. TISSUE REMOVED OR ALTERED: As noted above. COMPLICATIONS: None. ESTIMATED BLOOD LOSS: None. INTRAOPERATIVE FINDINGS: As noted above. PROCEDURE: Patient tolerated the procedure well. No immediate postprocedure comp occasions are noted. Patient is sent back to his room in good condition. Resume regular diet, medications as well as previous activity level. Waiting on biopsy results. Follow-up as outpatient.
[2017-12-28] MEDS: INSULIN LISPRO 100 UNIT/ML 3 ML VIAL SUBCUT PRN (15:50)
[2017-12-28] MEDS: LANSOPRAZOLE 30 MG TAB.RAP.DR PO SCH (17:54)
[2017-12-28] MEDS: PIOGLITAZONE HCL 30 MG TABLET PO SCH (17:54)
--- NOTE | 2017-12-28 18:16 | Progress Note ---
Provider Note Provider Note: CARDIOLOGY PROGRESS NOTE: By Dr. Randi Kaye on 12/28/2017. SUBJECTIVE: The patient feels much better. He is less short of breath. He denies any PND but still has some degree of orthopnea. His leg edema is only trace. He has no further chest pain. He has no anginal symptoms. There is no arrhythmias seen on the monitor. The patient denies any PND. There is no ventricular arrhythmias on the monitor. There is no atrial arrhythmias on the monitor. He is not wheezing anymore. He has no further cough. There is no TIA CVA symptoms. The patient has no fever. PHYSICAL EXAMINATION: The patient is morbidly obese. In no acute distress. He is well-groomed. Selected Entries 12/28/17 12/28/17 11:27 11:39 Temperature 97.4 F Temperature Axillary Source Pulse Rate 80 Respiratory 17 Rate Blood Pressure 158/84 H Blood Pressure 108 Mean BP Location Right Arm BP Position Supine O2 Sat by Pulse 100 Oximetry Fraction of 40 Inspired Oxygen (FIO2) Oxygen Delivery Bipap Method HEAD: Is atraumatic normocephalic. EYES: Pupils are equal round regular reactive to light accommodation. Extraocular movements are normal. There is no conjunctival pallor. T ABDOMEN here is no scleral icterus. EARS: Tympanic membranes are intact. Extremity external auditory canals are clear. NOSE: There is no inflammation of the nasal mucous membrane. There is no deviated nasal septum. MOUTH: Mucous membranes of mouth are moist tongue is moist, there is no ulcers in the mouth. There is no bleeding from the gums. THROAT: There is no redness of the oropharynx. There is no exudates. SKIN: There is no skin lesions or skin rashes. There is no particular ecchymosis. NECK: Is supple. There is no definite JVD. Carotids are equal without any bruits. There is no lymphadenopathy. There is no goiter. There is no accessory muscles of respiration use. Trachea central. LUNGS: There is small area of absent breath sounds in both bases. With dullness on percussion in these areas. Elsewhere on percussion of the lungs show hyperresonance. There is there is no rhonchi ,rales, or wheezing . There is prolonged expiration, and diminished air entry throughout. There is no definite rales of CHF. ABDOMEN: Is obese. Nontender. There is no hepatosplenic megaly. Bowel sounds are well heard. There is no rebound guarding or rigidity. EXTREMITIES: Femorals are deep. Femorals are decreased. There is no femoral bruits. There is some mild pedal edema. There is no DVT or cellulitis. There is no calf tenderness. Leg pulses are diminished,slightly. There is no cyanosis or clubbing. Capillary refill is normal. TEST FIXTURE ASSEMBLER: The patient is conscious awake alert, oriented x3. There is no focal deficits. PSYCHIATRIC: The patient judgment and insight are intact his affect is normal 12/26/17 12/28/17 12/28/17 23:50 05:28 05:28 WBC 11.0 H Hgb 12.6 L Hct 37.8 L Plt Count 267 Sodium 143.9 Potassium 3.9 Chloride 101 Carbon Dioxide 30 BUN 21 H Creatinine 0.65 Est GFR (Non-Af Amer) > 60 Glucose 107 Calcium 8.7 Total Bilirubin 0.8 Direct Bilirubin 0.3 Neonat Total Bilirubin Not Reportable Neonat Direct Bilirubin Not Reportable Neonat Indirect Bili Not Reportable AST 38 ALT 41 Alkaline Phosphatase 62 NT-Pro-B Natriuret Pep Total Protein 5.8 L Albumin 3.3 L Urine Color [place] Urine Appearance CLOUDY Urine pH 5.0 Ur Specific [place] 1.037 Urine Protein >=500 H Urine Glucose (UA) >=500 H Urine Ketones NEGATIVE Urine Blood LARGE H Urine Nitrite NEGATIVE Urine Bilirubin NEGATIVE Urine Urobilinogen NEGATIVE Ur Leukocyte Esterase NEGATIVE Urine WBC (Auto) 69 Urine RBC (Auto) >182 Urine Mucus (Auto) MOD Urine Yeast (Budding) PRESENT Urine Ascorbic Acid 40 H 12/28/17 05:28 WBC Hgb Hct Plt Count Sodium Potassium Chloride Carbon Dioxide BUN Creatinine Est GFR (Non-Af Amer) Glucose Calcium Total Bilirubin Direct Bilirubin Neonat Total Bilirubin Neonat Direct Bilirubin Neonat Indirect Bili AST ALT Alkaline Phosphatase NT-Pro-B Natriuret Pep 1070 H Total Protein Albumin Urine Color Urine Appearance Urine pH Ur Specific [place] Urine Protein Urine Glucose (UA) Urine Ketones Urine Blood Urine Nitrite Urine Bilirubin Urine Urobilinogen Ur Leukocyte Esterase Urine WBC (Auto) Urine RBC (Auto) Urine Mucus (Auto) Urine Yeast (Budding) Urine Ascorbic Acid . Ultrasound of the chest shows small bilateral pleural effusions. My opinion that there is not sufficient fluid for thoracentesis. The patient's first-pass MUGA shows an LV ejection fraction of 72%. Unfortunately the right ventricle ejection fraction is not been assessed. Will see if this can be done, will discuss with radiology. MPRESSION/RECOMMENDATION: 1. Shortness of breath, with orthopnea, and leg edema: This could be secondary to a combination of the patient's patchy pneumonitis/acute exacerbation of COPD with possible pulmonary hypertension causing right heart failure. Unable to get a good echocardiogram to assess LV function, and degree of pulmonary hypertension, in spite of rrepeat attempt. No definite ejection fraction is normal at 72% by MUGA at present agree with continue Lasix 20 mg IV daily, and continue antibiotics and respiratory treatments. 2. Acute exacerbation of COPD: Continue current respiratory treatments, would recommend steroids, antibiotics. This is improving 3. Patchy Pneumonitis by chest x-ray: Agree with the antibiotics and respiratory treatments. We will recheck the patient's chest x-ray tomorrow 4. Needs assessment for pulmonary hypertension. Note repeat attempted echo imaging not very successful. 5. Hypertension: Not very well controlled. Would recommend increase the patient's antihypertensives. We will increase hydralazine. 6. Diabetes mellitus type 2: Continue current anti-diabetic medication. 7. Obstructive Sleep Apnea: Continue CPAP. Would need to make sure that patient recently had his CPAP titrated. 8. Morbid Obesity: 9. Chronic back pain. 10. Chest Pain: Noncardiac. No acute EKG changes, no evidence of elevation of troponin I/cardiac biomarkers. Hence clearly noncardiac. This is resolved. 11. Urine shows proteinuria which is large. Will get a 24-hour urine protein to see if the patient has nephrotic range proteinuria. His medications have been reviewed and assessed. The medications have been adjusted. Medical decision making is of high complexity sterile Findings were discussed with the patient patient's . Discussed with attending physician the mother reports and also discussed management plans with him. 40 minutes spent on this patient, with more than 50% of time spent in direct patient care. We will follow with you.
[2017-12-29] MEDS: HYDRALAZINE HCL INJ/PF 20 MG/1 ML SDV IV PRN ×2 (00:01→04:47)
[2017-12-29] MEDS: CEFEPIME 2 GM/D5W RTU 2 GM/50 ML RTUPB IV SCH ×2 (02:29→15:22)
[2017-12-29] MEDS ORDERED: CEFEPIME 2 GM/D5W RTU 2 GM/50 ML RTUPB IV SCH (03:00)
[2017-12-29] MEDS: ACETAMINOPHEN 325 MG TABLET PO PRN ×2 (03:50→08:03)
[2017-12-29] MEDS: IPRATROPIUM/ALBUTEROL 0.5-2.5 MG/3 ML AMPUL NEB SCH ×5 (04:26→20:09)
[2017-12-29] MEDS: HYDRALAZINE HCL 50 MG TABLET PO SCH ×2 (05:09)
[2017-12-29] MEDS ORDERED: KETOROLAC TROMETHAMINE INJ/PF 30 MG/1 ML SDV IV ONE (06:15)
[2017-12-29] MEDS ORDERED: HYDRALAZINE HCL 50 MG TABLET PO ONE (07:30)
[2017-12-29] MEDS: ONDANSETRON HCL INJ/PF 4 MG/2 ML SDV IV PRN (08:33)
[2017-12-29] MEDS ORDERED: MORPHINE SULFATE 10 MG/ML INJ IV ONE (09:00)
[2017-12-29] MEDS ORDERED: HYDRALAZINE HCL 50 MG TABLET PO SCH ×2 (09:00→12:00)
[2017-12-29 09:13] LABS: ABSOLUTE BASOPHILS # (AUTO) 0.1 10^3/uL (0.0-0.2); ABSOLUTE EOSINOPHILS # (AUTO) 0.2 10^3/uL (0.0-0.6); ABSOLUTE MONOCYTES (AUTO) 0.6 10^3/uL (0.1-1.4); ABSOLUTE NEUT (AUTO) 8.5 10^3/uL (1.7-8.2); BASOPHILS % (AUTO) 0.6 % (0-2); EOSINOPHILS % (AUTO) 1.5 % (0-6); HEMOGLOBIN 12.8 g/dL (13.5-17.0); LYMPHOCYTES % (AUTO) 9.6 % (13-45); MEAN CORPUSCULAR HEMOGLOBIN 27.3 pg (27.0-33.4); MEAN CORPUSCULAR HGB CONC 33.8 g/dL (32.0-36.0); MEAN CORPUSCULAR VOLUME 81 fl (80-97); MONOCYTES % (AUTO) 6.1 % (3-13); PLATELET COUNT 268 10^3/uL (150-450); RED CELL DISTRIBUTION WIDTH 15.6 % (11.5-14.0); SEGMENTED NEUTROPHILS % (AUTO) 82.2 % (42-78); TOTAL CELLS COUNTED % (AUTO) 100 %; WHITE BLOOD COUNT 10.3 10^3/uL (4.0-10.5)
[2017-12-29 09:26] LABS: ALANINE AMINOTRANSFERASE 53 U/L (21-72); ALBUMIN 3.2 g/dL (3.5-5.0); ALKALINE PHOSPHATASE 67 U/L (38-126); ANION GAP 12 (5-19); ASPARTATE AMINO TRANSFERASE 29 U/L (17-59); BILIRUBIN,DIRECT 0.4 mg/dL (0.0-0.4); BILIRUBIN,TOTAL 0.9 mg/dL (0.2-1.3); BLOOD UREA NITROGEN 24 mg/dL (7-20); CALCIUM 8.5 mg/dL (8.4-10.2); CARBON DIOXIDE 27 mmol/L (22-30); CHLORIDE 101 mmol/L (98-107); GLUCOSE 203 mg/dL (75-110); POTASSIUM 3.8 mmol/L (3.6-5.0); TOTAL PROTEIN 5.7 g/dL (6.3-8.2)
[2017-12-29] MEDS: LOSARTAN POTASSIUM 50 MG TABLET PO SCH ×2 (10:20→21:39)
[2017-12-29] MEDS: AMLODIPINE BESYLATE 5 MG TABLET PO SCH ×2 (10:20→21:39)
[2017-12-29] MEDS: POLYETHYLENE GLYCOL 3350 POWDER 17 GM/1 PACKET PO SCH (10:21)
[2017-12-29] MEDS: FUROSEMIDE INJ/PF 20 MG/2 ML SDV IV SCH ×2 (10:21→21:38)
[2017-12-29] MEDS: ENOXAPARIN SODIUM INJ 40 MG/0.4 ML DISP.SYRIN SUBCUT SCH (10:22)
[2017-12-29] MEDS: HUM INSULIN NPH/REG INSULIN HM 100 UNIT/1 ML 3 ML SUBCUT SCH ×2 (10:22→21:38)
[2017-12-29] MEDS: DOXYCYCLINE HYCLATE 100 MG in DEXTROSE 5%-WATER 250 ML IV SCH (10:23)
[2017-12-29] MEDS: ASPIRIN 81 MG TABLET, ENT COATED PO SCH (10:26)
[2017-12-29] MEDS: DOCUSATE SODIUM 100 MG CAPSULE PO SCH ×2 (10:26→18:46)
[2017-12-29] MEDS: GUAIFENESIN 600 MG TABLET.SA PO SCH ×2 (10:27→21:39)
[2017-12-29] MEDS: FAMOTIDINE 20 MG TABLET PO SCH ×2 (10:27→21:39)
[2017-12-29] MEDS: METOPROLOL TARTRATE 25 MG TABLET PO SCH ×2 (10:29→21:40)
--- NOTE | 2017-12-29 10:39 | RADIOLOGY REPORT (SQ) ---
EXAM DESCRIPTION: CTA HEAD COMPLETED DATE/TIME: 12/29/2017 10:13 am REASON FOR STUDY: Angio COMPARISON: 07/13/2015 TECHNIQUE: Axial images acquired through the brain without and with intravenous contrast. Images re viewed with bone, brain and subdural windows. Additional sagittal and coronal reconstructions were g enerated. Images stored on PACS. CT angio [place] was performed. Thin section postcontrast CT images were reviewed with maxim um intensity projected images of the [place] in multiple orientations. All CT scanners at this facility use dose modulation, iterative reconstruction, and/or weight based d osing when appropriate to reduce radiation dose to as low as reasonably achievable (ALARA). [facility]: Dose Right [facility]: CareDose [facility]: Dose Right [facility]: Teradose 4D [facility]: [employer] CONTRAST TYPE AND DOSE: contrast/concentration: Isovue 350.00 mg/ml; Total Contrast Delivered: 80.0 ml; Total Saline Delivered: 74.0 ml RENAL FUNCTION: GFR > 60. RADIATION DOSE: CT Rad equipment meets quality standard of care and radiation dose reduction techniq ues were employed. CTDIvol: 48.7 - 70.3 mGy. DLP: 2637 mGy-cm.. LIMITATIONS: None. FINDINGS: VENTRICLES: Normal size and contour. CEREBRUM: Stable encephalomalacia right temporal lobe adjacent to craniotomy. No evidence of acute i nfarct, mass, hemorrhage or extra-axial fluid collection. CEREBELLUM: No masses. No hemorrhage. No alteration of density. No evidence for acute infarction. No enhancing lesions. EXTRA-AXIAL SPACES: See above. No extra-axial fluid collection. ORBITS AND GLOBE: No intra- or extraconal masses. Normal contour of globe without masses. CALVARIUM: See above. PARANASAL SINUSES: No fluid or mucosal thickening. SOFT TISSUES: No mass or hematoma. OTHER: No other significant finding. CTA COW: [place]: The anterior, middle, posterior cerebral arteries are all patent. No evidence of a neurysm or focal stenosis. POSTERIOR CIRCULATION: The distal vertebral arteries are patent as is the basilar artery. No aneurysm . OTHER: No other significant finding. IMPRESSION: NO ACUTE INTRACRANIAL IMAGING FINDINGS. NO CTA EVIDENCE OF STENOSIS OR ANEURYSM OF THE [place]. EVIDENCE OF ACUTE STROKE: NO. TECHNICAL DOCUMENTATION: JOB ID: [id number] Quality ID # [id number]: Final reports with documentation of one or more dose reduction techniques (e.g., Au tomated exposure control, adjustment of the mA and/or kV according to patient size, use of iterative reconstruction technique) 2010 [employer]- All Rights Reserved Reading location - IP/workstation name: [facility]-[email or web address]
[2017-12-29] MEDS ORDERED: BISACODYL 10 MG SUPP.RECT PR PRN (10:43)
--- NOTE | 2017-12-29 12:46 | PDOC PROGRESS REPORT ---
Subjective Progress Note for:: 12/29/17 Subjective:: Patient is complaining of a significant headache this morning denied any visual problem Denied any weakness Patient denied any chest pain denied any shortness of the breath Patient is CT angiogram of the head was all negative for any acute finding Patient seen by the cardiology and GI and endoscopy done And is complaining some nausea and vomiting unable to keep it down Patient's denied any fever no chills Reason For Visit: PNEUMONIA Physical Exam Vital Signs: Temp Pulse Resp BP Pulse Ox 98.4 F 84 20 175/69 H 96 12/29/17 08:02 12/29/17 11:34 12/29/17 11:34 12/29/17 08:02 12/29/17 11:34 Pulse Oximeter Nocturnal Start: 12/28/17 11: 19 Freq: RTQ4 Status: Complete Document 12/29/17 04:00 LRO (Rec: 12/29/17 05:28 LRO [id number]) Nocturnal Pulse Oximetry Equipment Usage Equipment in Use Oxygen Delivery Method (includes room Bi-pap air) O2 Sat by Pulse Oximetry (92-100) 98 Continuous SpO2 Machine # 11 Intake & Output 12/28/17 12/29/17 12/30/17 06:59 06:59 06:59 Intake Total 615 1115 Output Total 2725 2125 Balance -2110 -1010 Weight 134.7 kg 134.6 kg Physical Exam: Except patient's complaint of a headache General appearance: PRESENT: no acute distress, well-developed, well-nourished Head exam: PRESENT: atraumatic, normocephalic Eye exam: PRESENT: conjunctiva pink, EOMI, PERRLA. ABSENT: scleral icterus Ear exam: PRESENT: normal external ear exam Mouth exam: PRESENT: moist, tongue midline Neck exam: PRESENT: full ROM. ABSENT: carotid bruit, JVD, lymphadenopathy, thyromegaly Respiratory exam: PRESENT: clear to auscultation rafia Cardiovascular exam: PRESENT: RRR. ABSENT: diastolic murmur, rubs, systolic murmur Pulses: PRESENT: normal dorsalis pedis pul, +2 pedal pulses bilateral Vascular exam: PRESENT: normal capillary refill GI/Abdominal exam: PRESENT: normal bowel sounds, soft. ABSENT: distended, guarding, mass, organolmegaly, rebound, tenderness Rectal exam: PRESENT: deferred Extremities exam: PRESENT: pedal edema Neurological exam: PRESENT: alert, awake, oriented to person, oriented to place , oriented to time, oriented to situation, CN II-XII grossly intact. ABSENT: motor sensory deficit Psychiatric exam: PRESENT: appropriate affect, normal mood. ABSENT: homicidal ideation, suicidal ideation Skin exam: PRESENT: dry, intact, warm. ABSENT: cyanosis, rash Results Laboratory Results: 12/29/17 08:56 12/29/17 08:56 12/29/17 12/29/17 08:56 08:56 WBC 10.3 RBC 4.70 Hgb 12.8 L Hct 38.0 MCV 81 MCH 27.3 MCHC 33.8 RDW 15.6 H Plt Count 268 Seg Neutrophils % 82.2 H Lymphocytes % 9.6 L Monocytes % 6.1 Eosinophils % 1.5 Basophils % 0.6 Absolute Neutrophils 8.5 H Absolute Lymphocytes 1.0 Absolute Monocytes 0.6 Absolute Eosinophils 0.2 Absolute Basophils 0.1 Sodium 140.0 Potassium 3.8 Chloride 101 Carbon Dioxide 27 Anion Gap 12 BUN 24 H Creatinine 0.64 Est GFR ( Amer) > 60 Est GFR (Non-Af Amer) > 60 Glucose 203 H Calcium 8.5 Total Bilirubin 0.9 AST 29 ALT 53 Alkaline Phosphatase 67 Total Protein 5.7 L Albumin 3.2 L 12/26/17 12/26/17 12/26/17 10:17 10:17 16:05 Creatine Kinase 56 55 CK-MB (CK-2) 1.15 Troponin I 0.019 NT-Pro-B Natriuret Pep 12/26/17 12/26/17 12/26/17 16:05 22:04 22:04 Creatine Kinase 51 L CK-MB (CK-2) 1.30 1.12 Troponin I 0.019 0.027 NT-Pro-B Natriuret Pep 12/27/17 12/27/17 12/27/17 04:42 07:39 07:39 Creatine Kinase 54 L CK-MB (CK-2) 1.29 Troponin I 0.030 NT-Pro-B Natriuret Pep 2200 H 12/27/17 12/27/17 12/27/17 15:00 15:00 19:12 Creatine Kinase 108 122 CK-MB (CK-2) 1.57 Troponin I 0.026 NT-Pro-B Natriuret Pep 12/27/17 12/28/17 12/29/17 19:12 05:28 08:56 Creatine Kinase CK-MB (CK-2) 1.58 Troponin I 0.029 NT-Pro-B Natriuret Pep 1070 H 694 Impressions: Abdomen/Pelvis CT 12/26/17 00:00 IMPRESSION: 1. SLIGHT HAZY APPEARANCE OF THE MESENTERY, "ANETA MESENTERY" . THIS IS A NONSPECIFIC FINDING AND COULD BE INCIDENTAL BUT COULD BE INDICATIVE OF INFLAMMATORY PROCESS. 2. NO OTHER SIGNIFICANT OR ACUTE FINDING IN THE ABDOMEN OR PELVIS ON CT SCAN WITH IV CONTRAST. Chest/Abdomen CTA 12/26/17 00:00 IMPRESSION: 1. NORMAL CTA OF THE CHEST. NO PULMONARY EMBOLI. 2. MODERATE BILATERAL PLEURAL EFFUSIONS WITH SCATTERED BASILAR ATELECTASIS. Chest X-Ray 12/27/17 00:00 IMPRESSION: RIGHT BASILAR AIRSPACE DISEASE SLIGHTLY MORE PROMINENT. THIS COULD BE DUE TO PROGRESSIVE ATELECTASIS VERSUS DEVELOPING PNEUMONIA. Cardiac Imaging Nuclear Medicine 12/28/17 00:00 IMPRESSION: NORMAL CARDIAC MUGA STUDY. NORMAL LEFT VENTRICULAR FUNCTION WITH VALUES ABOVE. Chest Ultrasound 12/28/17 00:00 IMPRESSION: Small bilateral pleural effusions. Head CTA 12/29/17 00:00 IMPRESSION: NO ACUTE INTRACRANIAL IMAGING FINDINGS. NO CTA EVIDENCE OF STENOSIS OR ANEURYSM OF THE [place]. EVIDENCE OF ACUTE STROKE: NO. Assessment & Plan - Diagnosis (1) COPD (chronic obstructive pulmonary disease) with acute bronchitis Is this a current diagnosis for this admission?: Yes Plan: Continues to nebulizer treatment (2) Hypertension Qualifiers: Hypertension type: essential hypertension Qualified Code(s): I10 - Essential (primary) hypertension Is this a current diagnosis for this admission?: Yes Plan: At this point the Dr. Kaye stop the hydralazine and suggest the use of clonidine which may help for the patient headache and help for the blood pressures We also cut down the Norvasc 2.5 mg twice a day Continues to losartan (3) Pneumonia Qualifiers: Pneumonia type: due to unspecified organism Laterality: bilateral Lung location: unspecified part of lung Qualified Code(s): J18.9 - Pneumonia, unspecified organism Is this a current diagnosis for this admission?: Yes Plan: Changed to p.o. doxycycline to the IV right because of the QT interval patients unable to take any Levaquin and will try to avoid any esophagitis the p.o. medications (4) Shortness of breath Is this a current diagnosis for this admission?: Yes Plan: Patient is currently using the BiPAP at night works much better compared to the CPAP will follow with the pulmonary probably need to readjust his CPAP (5) Abdominal distension Is this a current diagnosis for this admission?: Yes Plan: Patient CT scan is all stable (6) Sleep apnea Qualifiers: Sleep apnea type: unspecified type Qualified Code(s): G47.30 - Sleep apnea , unspecified Is this a current diagnosis for this admission?: Yes Plan: cont use c pap (7) Pleural effusion Is this a current diagnosis for this admission?: Yes Plan: Patient ultrasounds and small effusions are not think she will need to require thoracocentesis (8) Headache Qualifiers: Headache type: unspecified Intractability: intractable Is this a current diagnosis for this admission?: Yes Plan: Patient CT of the head and CT angiogram is all negative Possible underlying medications stop the hydralazine Will try the steroid and also try the as needed Fioricet (9) Nausea Is this a current diagnosis for this admission?: Yes Plan: Will try the Zofran - Time Time Spent with patient: 25-34 minutes Medications reviewed and adjusted accordingly: Yes Anticipated discharge: Other Within: Other - Inpatient Certification Based on my medical assessment, after consideration of the patient's comorbidities, presenting symptoms, or acuity I expect that the services needed warrant INPATIENT care.: Yes Medical Necessity: Need Close Monitoring Due to Risk of Patient Decompensation, Need for IV Antibiotics Post Hospital Care: 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
[2017-12-29] MEDS: INSULIN LISPRO 100 UNIT/ML 3 ML VIAL SUBCUT PRN ×2 (12:53→19:23)
[2017-12-29] MEDS ORDERED: METHYLPREDNISOLONE INJ 40 MG/1 ML SDV IV SCH (13:00)
[2017-12-29] MEDS ORDERED: MORPHINE SULFATE 10 MG/ML INJ IV PRN (13:04)
[2017-12-29] MEDS: CLONIDINE HCL 0.1 MG TABLET PO SCH ×2 (13:54→21:39)
[2017-12-29] MEDS: DEXAMETHASONE SOD PHOSPHATE INJ 4 MG/1 ML VIAL IV SCH ×2 (13:56→21:39)
[2017-12-29] MEDS: PANTOPRAZOLE SODIUM 40 MG VIAL IV SCH ×2 (13:56→21:38)
[2017-12-29] MEDS: 1/2 NORMAL SALINE 1,000 ML IV PRN (15:23)
--- NOTE | 2017-12-29 15:28 | RADIOLOGY REPORT (SQ) ---
EXAM DESCRIPTION: MRI HEAD WITHOUT COMPLETED DATE/TIME: 12/29/2017 3:16 pm REASON FOR STUDY: headche COMPARISON: 07/14/2015 TECHNIQUE: Multiplanar imaging includes non-contrasted T1, T2, FLAIR, and diffusion with ADC map seq uences. Images stored on PACS. LIMITATIONS: None. FINDINGS: ANATOMY: No anomalies. Normal vascular flow voids. Pituitary fossa normal. CSF SPACES: Atrophy induced prominence of ventricles and CSF spaces. CEREBRUM: Old right MCA territory infarct. Old lacunar infarct left basal ganglia and thalamus. Hig h signal intensity lesions scattered throughout the white matter on FLAIR imaging with distribution s uggesting micro-vascular ischemic changes. No evidence of hemorrhage, mass, or extraaxial fluid elier ection. POSTERIOR FOSSA: No signal alteration. No hemorrhage. No edema, masses or mass effect. Internal sadiq tory canals, cerebello-pontine angles, mastoids normal. DIFFUSION IMAGING: Negative for acute or sub-acute infarction. ORBITS: No masses. Globes normal. PARANASAL SINUSES: No fluid levels. Mucosa normal. OTHER: No other significant finding. IMPRESSION: Chronic ischemic changes. EVIDENCE OF ACUTE STROKE: NO. TECHNICAL DOCUMENTATION: JOB ID: [id number] [employer]- All Rights Reserved Reading location - IP/workstation name: [facility]-[email or web address]
[2017-12-29] MEDS: PREDNISONE 20 MG TABLET PO SCH (18:47)
[2017-12-29] MEDS ORDERED: PROMETHAZINE HCL 25 MG TABLET PO PRN (19:07)
[2017-12-29] MEDS: BUSPIRONE HCL 10 MG TABLET PO SCH (21:40)
[2017-12-29 21:41] LABS: 24 HOUR URINE PROTEIN RESULT 6932 mg/day (42-225); URINE PROTEIN 350.1 mg/dL (<12)
--- NOTE | 2017-12-29 22:19 | Progress Note ---
Provider Note Provider Note: CARDIOLOGY PROGRESS NOTES by Dr. Randi Kaye on 12/29/2017. SUBJECTIVE: The patient's blood pressure still not well controlled, he complains of severe headache. There are no visual symptoms or signs or focal weaknesses or confusion suggestive of a stroke. The patient's headache started a little after the patient was given p.o. hydralazine. This could be 1 of the factors for the patient's headache. He denies any chest pain or discomfort. There is no PND orthopnea. There is no leg edema. There is no palpitations. There is no anginal symptoms. There is no symptoms of wheezing or cough. His right radial ejection fraction came back normal at 48%. There is no arrhythmias seen on the monitor. PHYSICAL EXAMINATION: The patient is morbidly obese. He is in distress due to headache. He is well-groomed. In spite of his headache is not confused. And is oriented x3. Selected Entries 12/29/17 08:02 Temperature 98.4 F Temperature Axillary Source Pulse Rate 95 Respiratory 24 H Rate Blood Pressure 175/69 H Blood Pressure 104 Mean BP Location Left Arm BP Position Supine O2 Sat by Pulse 98 Oximetry Oxygen Flow 2.00 Rate Oxygen Delivery Nasal Cannula HEAD: Is atraumatic normocephalic. EYES: Pupils are equal round regular reactive to light accommodation. Extraocular movements are normal. There is no conjunctival pallor. T ABDOMEN here is no scleral icterus. EARS: Tympanic membranes are intact. Extremity external auditory canals are clear. NOSE: There is no inflammation of the nasal mucous membrane. There is no deviated nasal septum. MOUTH: Mucous membranes of mouth are moist tongue is moist, there is no ulcers in the mouth. There is no bleeding from the gums. THROAT: There is no redness of the oropharynx. There is no exudates. SKIN: There is no skin lesions or skin rashes. There is no particular ecchymosis. NECK: Is supple. There is no definite JVD. Carotids are equal without any bruits. There is no lymphadenopathy. There is no goiter. There is no accessory muscles of respiration use. Trachea central. LUNGS: There is small area of absent breath sounds in both bases. With dullness on percussion in these areas. Elsewhere on percussion of the lungs show hyperresonance. There is there is no rhonchi ,rales, or wheezing . There is prolonged expiration, and diminished air entry throughout. There is no definite rales of CHF. ABDOMEN: Is obese. Nontender. There is no hepatosplenic megaly. Bowel sounds are well heard. There is no rebound guarding or rigidity. EXTREMITIES: Femorals are deep. Femorals are decreased. There is no femoral bruits. There is some mild pedal edema. There is no DVT or cellulitis. There is no calf tenderness. Leg pulses are diminished,slightly. There is no cyanosis or clubbing. Capillary refill is normal. ALEMITE OPERATOR: The patient is conscious awake alert, oriented x3. There is no focal deficits. PSYCHIATRIC: The patient judgment and insight are intact his affect is normal. 12/26/17 12/29/17 12/29/17 23:50 08:56 08:56 WBC 10.3 Hgb 12.8 L Hct 38.0 Plt Count 268 ESR Sodium 140.0 Potassium 3.8 Chloride 101 Carbon Dioxide 27 BUN 24 H Creatinine 0.64 Est GFR (Non-Af Amer) > 60 Glucose 203 H Calcium 8.5 Total Bilirubin 0.9 Direct Bilirubin 0.4 Neonat Total Bilirubin Not Reportable Neonat Direct Bilirubin Not Reportable Neonat Indirect Bili Not Reportable AST 29 ALT 53 Alkaline Phosphatase 67 NT-Pro-B Natriuret Pep Total Protein 5.7 L Albumin 3.2 L Ur 24 Hour Volume Ur Total Protein 24 Hr Urine Total Protein Urine Ascorbic Acid 40 H 12/29/17 12/29/17 12/29/17 08:56 11:12 20:00 WBC Hgb Hct Plt Count ESR 40 H Sodium Potassium Chloride Carbon Dioxide BUN Creatinine Est GFR (Non-Af Amer) Glucose Calcium Total Bilirubin Direct Bilirubin Neonat Total Bilirubin Neonat Direct Bilirubin Neonat Indirect Bili AST ALT Alkaline Phosphatase NT-Pro-B Natriuret Pep 694 Total Protein Albumin Ur 24 Hour Volume 1980 Ur Total Protein 24 Hr 6932 H Urine Total Protein 350.1 H Urine Ascorbic Acid The patient's ESR is only 40. The patient has no visual symptoms. Hence headache is definitely not due to temporal arteritis. The patient's head CTA, and MRI are negative for any stroke, mass or hemorrhage. The MRI shows chronic ischemic changes. The patient's mother shows a calculated right ventricle ejection fraction of 48%, which is still normal. MPRESSION/RECOMMENDATION: 1. Shortness of breath, with orthopnea, and leg edema: This could be secondary to a combination of the patient's patchy pneumonitis/acute exacerbation of COPD with possible pulmonary hypertension causing right heart failure. Unable to get a good echocardiogram to assess LV function, and degree of pulmonary hypertension, in spite of repeat attempt. LV ejection fraction is normal at 72% by MUGA at present agree with continue Lasix 20 mg IV daily, and continue antibiotics and respiratory treatments. Note with the current treatment the patient's symptoms are resolved. Also of note the right ventricle ejection fraction has been calculated at 48% which is still normal. Hence this precludes right heart failure. Note that the patient's 24-hour urine shows a proteinuria of 6.9 g, which is in the nephrotic range, but I am not sure if this is accurate due to the patient's high urine ascorbic acid levels. 2. Acute exacerbation of COPD: Continue current respiratory treatments, would recommend steroids, antibiotics. This is improving 3. Patchy Pneumonitis by chest x-ray: Agree with the antibiotics and respiratory treatments. We will recheck the patient's chest x-ray tomorrow 4. Needs assessment for pulmonary hypertension. Note repeat attempted echo imaging not very successful. 5. Hypertension: Not very well controlled. Would recommend increase the patient's antihypertensives. Due to headaches. hydralazine. As discussed with Dr. Fortune, will start the patient on clonidine 0.1 mg p.o. every 8 hours, and increase it as tolerated. Note that the patient's amlodipine has been cut down to 2.5 mg p.o. twice daily, in view of the patient's headaches. 6. Diabetes mellitus type 2: Continue current anti-diabetic medication. 7. Obstructive Sleep Apnea: Continue CPAP. Would need to make sure that patient recently had his CPAP titrated. 8. Morbid Obesity: 9. Chronic back pain. 10. Chest Pain: Noncardiac. No acute EKG changes, no evidence of elevation of troponin I/cardiac biomarkers. Hence clearly noncardiac. This is resolved. 11. Headaches:? Etiology. No evidence of acute ALEMITE OPERATOR pathology. Most likely secondary to medication/hyper uncontrolled hypertension. 12. Nephrotic range proteinuria. If this is accurate and vascularly, the patient's leg edema could be secondary to nephrotic syndrome. Will discuss with laboratory about the urines high ascorbic acid, and its possible effect on the results of the protein in the urine. Medications have been reviewed and adjusted. Discussed with the patient and the patient's . Results of the CTA of the head and MRI have been discussed with the patient and the patient's . Discussed with Dr. Fortune the management of the patient's condition. Medical decision making is of high complexity. Await bedside prep PFT test results. We will follow with you.
[2017-12-30] MEDS: IPRATROPIUM/ALBUTEROL 0.5-2.5 MG/3 ML AMPUL NEB SCH ×6 (00:29→20:18)
[2017-12-30] MEDS: CEFEPIME 2 GM/D5W RTU 2 GM/50 ML RTUPB IV SCH ×2 (02:37→15:21)
[2017-12-30] MEDS: CLONIDINE HCL 0.1 MG TABLET PO SCH ×3 (05:26→21:16)
[2017-12-30] MEDS: DEXAMETHASONE SOD PHOSPHATE INJ 4 MG/1 ML VIAL IV SCH ×3 (05:26→21:12)
[2017-12-30 06:08] LABS: ABSOLUTE BASOPHILS # (AUTO) 0.1 10^3/uL (0.0-0.2); ABSOLUTE LYMPHOCYTES (AUTO) 0.7 10^3/uL (0.5-4.7); ABSOLUTE MONOCYTES (AUTO) 0.3 10^3/uL (0.1-1.4); ABSOLUTE NEUT (AUTO) 10.6 10^3/uL (1.7-8.2); BASOPHILS % (AUTO) 0.4 % (0-2); HEMATOCRIT 36.7 % (37.9-51.0); LYMPHOCYTES % (AUTO) 6.4 % (13-45); MEAN CORPUSCULAR HEMOGLOBIN 26.7 pg (27.0-33.4); MEAN CORPUSCULAR HGB CONC 32.8 g/dL (32.0-36.0); MEAN CORPUSCULAR VOLUME 82 fl (80-97); MONOCYTES % (AUTO) 2.8 % (3-13); PLATELET COUNT 280 10^3/uL (150-450); RED CELL DISTRIBUTION WIDTH 15.9 % (11.5-14.0); SEGMENTED NEUTROPHILS % (AUTO) 90.4 % (42-78); TOTAL CELLS COUNTED % (AUTO) 100 %; WHITE BLOOD COUNT 11.7 10^3/uL (4.0-10.5)
[2017-12-30 06:32] LABS: ANION GAP 13 (5-19); BLOOD UREA NITROGEN 29 mg/dL (7-20); CALCIUM 8.3 mg/dL (8.4-10.2); CARBON DIOXIDE 26 mmol/L (22-30); CHLORIDE 100 mmol/L (98-107); GLUCOSE 278 mg/dL (75-110); POTASSIUM 4.2 mmol/L (3.6-5.0); SODIUM 138.8 mmol/L (137-145)
[2017-12-30 06:35] LABS: INTERNATIONAL RATION (INR) 1.03; PARTIAL THROMBOPLASTIN TIME 34.8 SEC (23.5-35.8)
[2017-12-30] MEDS: INSULIN LISPRO 100 UNIT/ML 3 ML VIAL SUBCUT PRN ×4 (09:42→22:28)
[2017-12-30] MEDS: HUM INSULIN NPH/REG INSULIN HM 100 UNIT/1 ML 3 ML SUBCUT SCH ×2 (09:43→22:28)
[2017-12-30] MEDS ORDERED: AMLODIPINE BESYLATE 2.5 MG TABLET PO SCH (10:00)
[2017-12-30] MEDS ORDERED: AMLODIPINE BESYLATE 5 MG TABLET PO SCH (10:00)
--- NOTE | 2017-12-30 10:19 | PDOC PROGRESS REPORT ---
Subjective Progress Note for:: 12/30/17 Subjective:: And is feeling much better this morning compared to yesterday Patient's MRI of the head was negative for any acute finding Patient is having no headache this morning Denied any chest pain denied any shortness of the breath Patient having no fever no chills Reason For Visit: PNEUMONIA Physical Exam Vital Signs: Temp Pulse Resp BP Pulse Ox 98.0 F 82 20 147/65 H 94 12/30/17 07:42 12/30/17 08:17 12/30/17 08:17 12/30/17 07:42 12/30/17 08:17 Pulse Oximeter Nocturnal Start: 12/28/17 11: 19 Freq: RTQ4 Status: Complete Document 12/29/17 04:00 LRO (Rec: 12/29/17 05:28 LRO [id number]) Nocturnal Pulse Oximetry Equipment Usage Equipment in Use Oxygen Delivery Method (includes room Bi-pap air) O2 Sat by Pulse Oximetry (92-100) 98 Continuous SpO2 Machine # 11 Intake & Output 12/29/17 12/30/17 12/31/17 06:59 06:59 05:59 Intake Total 1115 850 Output Total 2125 9405 Balance -1010 -1725 Weight 134.6 kg 134 kg General appearance: PRESENT: no acute distress, well-developed, well-nourished Head exam: PRESENT: atraumatic, normocephalic Eye exam: PRESENT: conjunctiva pink, EOMI, PERRLA. ABSENT: scleral icterus Ear exam: PRESENT: normal external ear exam Mouth exam: PRESENT: moist, tongue midline Neck exam: PRESENT: full ROM. ABSENT: carotid bruit, JVD, lymphadenopathy, thyromegaly Respiratory exam: PRESENT: clear to auscultation rafia Cardiovascular exam: PRESENT: RRR. ABSENT: diastolic murmur, rubs, systolic murmur Pulses: PRESENT: normal dorsalis pedis pul, +2 pedal pulses bilateral Vascular exam: PRESENT: normal capillary refill GI/Abdominal exam: PRESENT: normal bowel sounds, soft. ABSENT: distended, guarding, mass, organolmegaly, rebound, tenderness Rectal exam: PRESENT: deferred Extremities exam: ABSENT: pedal edema Musculoskeletal exam: PRESENT: ambulatory Neurological exam: PRESENT: alert, awake, oriented to person, oriented to place , oriented to time, oriented to situation, CN II-XII grossly intact. ABSENT: motor sensory deficit Psychiatric exam: PRESENT: appropriate affect, normal mood. ABSENT: homicidal ideation, suicidal ideation Skin exam: PRESENT: dry, intact, warm. ABSENT: cyanosis, rash Results Laboratory Results: 12/30/17 05:04 12/30/17 05:04 12/29/17 12/30/17 12/30/17 20:00 05:04 05:04 WBC 11.7 H RBC 4.50 Hgb 12.0 L Hct 36.7 L MCV 82 MCH 26.7 L MCHC 32.8 RDW 15.9 H Plt Count 280 Seg Neutrophils % 90.4 H Lymphocytes % 6.4 L Monocytes % 2.8 L Eosinophils % 0.0 Basophils % 0.4 Absolute Neutrophils 10.6 H Absolute Lymphocytes 0.7 Absolute Monocytes 0.3 Absolute Eosinophils 0.0 Absolute Basophils 0.1 Sodium 138.8 Potassium 4.2 Chloride 100 Carbon Dioxide 26 Anion Gap 13 BUN 29 H Creatinine 0.74 Est GFR ( Amer) > 60 Est GFR (Non-Af Amer) > 60 Glucose 278 H Calcium 8.3 L Ur 24 Hour Volume 1980 Ur Total Protein 24 Hr 6932 H 12/26/17 12/26/17 12/26/17 10:17 10:17 16:05 Creatine Kinase 56 55 CK-MB (CK-2) 1.15 Troponin I 0.019 NT-Pro-B Natriuret Pep 12/26/17 12/26/17 12/26/17 16:05 22:04 22:04 Creatine Kinase 51 L CK-MB (CK-2) 1.30 1.12 Troponin I 0.019 0.027 NT-Pro-B Natriuret Pep 12/27/17 12/27/17 12/27/17 04:42 07:39 07:39 Creatine Kinase 54 L CK-MB (CK-2) 1.29 Troponin I 0.030 NT-Pro-B Natriuret Pep 2200 H 12/27/17 12/27/17 12/27/17 15:00 15:00 19:12 Creatine Kinase 108 122 CK-MB (CK-2) 1.57 Troponin I 0.026 NT-Pro-B Natriuret Pep 12/27/17 12/28/17 12/29/17 19:12 05:28 08:56 Creatine Kinase CK-MB (CK-2) 1.58 Troponin I 0.029 NT-Pro-B Natriuret Pep 1070 H 694 Impressions: Abdomen/Pelvis CT 12/26/17 00:00 IMPRESSION: 1. SLIGHT HAZY APPEARANCE OF THE MESENTERY, "ANETA MESENTERY" . THIS IS A NONSPECIFIC FINDING AND COULD BE INCIDENTAL BUT COULD BE INDICATIVE OF INFLAMMATORY PROCESS. 2. NO OTHER SIGNIFICANT OR ACUTE FINDING IN THE ABDOMEN OR PELVIS ON CT SCAN WITH IV CONTRAST. Chest/Abdomen CTA 12/26/17 00:00 IMPRESSION: 1. NORMAL CTA OF THE CHEST. NO PULMONARY EMBOLI. 2. MODERATE BILATERAL PLEURAL EFFUSIONS WITH SCATTERED BASILAR ATELECTASIS. Chest X-Ray 12/27/17 00:00 IMPRESSION: RIGHT BASILAR AIRSPACE DISEASE SLIGHTLY MORE PROMINENT. THIS COULD BE DUE TO PROGRESSIVE ATELECTASIS VERSUS DEVELOPING PNEUMONIA. Cardiac Imaging Nuclear Medicine 12/28/17 00:00 IMPRESSION: NORMAL CARDIAC MUGA STUDY. NORMAL LEFT VENTRICULAR FUNCTION WITH VALUES ABOVE. Chest Ultrasound 12/28/17 00:00 IMPRESSION: Small bilateral pleural effusions. Head CTA 12/29/17 00:00 IMPRESSION: NO ACUTE INTRACRANIAL IMAGING FINDINGS. NO CTA EVIDENCE OF STENOSIS OR ANEURYSM OF THE [place] OF [place]. EVIDENCE OF ACUTE STROKE: NO. Head MRI 12/29/17 00:00 IMPRESSION: Chronic ischemic changes. EVIDENCE OF ACUTE STROKE: NO. Assessment & Plan - Diagnosis (1) COPD (chronic obstructive pulmonary disease) with acute bronchitis Is this a current diagnosis for this admission?: Yes Plan: Continues to nebulizer treatment (2) Hypertension Qualifiers: Hypertension type: essential hypertension Qualified Code(s): I10 - Essential (primary) hypertension Is this a current diagnosis for this admission?: Yes Plan: At this point the Dr. Kaye stop the hydralazine and suggest the use of clonidine which may help for the patient headache and help for the blood pressures We also cut down the Norvasc 2.5 mg twice a day Continues to losartan (3) Pneumonia Qualifiers: Pneumonia type: due to unspecified organism Laterality: bilateral Lung location: unspecified part of lung Qualified Code(s): J18.9 - Pneumonia, unspecified organism Is this a current diagnosis for this admission?: Yes Plan: Changed to p.o. doxycycline to the IV right because of the QT interval patients unable to take any Levaquin and will try to avoid any esophagitis the p.o. medications (4) Shortness of breath Is this a current diagnosis for this admission?: Yes Plan: Patient is currently using the BiPAP at night works much better compared to the CPAP will follow with the pulmonary probably need to readjust his CPAP (5) Abdominal distension Is this a current diagnosis for this admission?: Yes Plan: Patient CT scan is all stable (6) Sleep apnea Qualifiers: Sleep apnea type: unspecified type Qualified Code(s): G47.30 - Sleep apnea , unspecified Is this a current diagnosis for this admission?: Yes Plan: cont use c pap (7) Pleural effusion Is this a current diagnosis for this admission?: Yes Plan: Clear all stable (8) Headache Qualifiers: Headache type: unspecified Intractability: intractable Is this a current diagnosis for this admission?: Yes Plan: Most likely up from the hydralazine not sure but all workup is negative and patient's feeling much better I do not think so patients need a lumbar puncture at this point what the patient would does not have any sign of any neurological issue (9) Nausea Is this a current diagnosis for this admission?: Yes Plan: Currently all resolved - Time Time Spent with patient: 25-34 minutes Medications reviewed and adjusted accordingly: Yes Anticipated discharge: Home Within: Other - Inpatient Certification Based on my medical assessment, after consideration of the patient's comorbidities, presenting symptoms, or acuity I expect that the services needed warrant INPATIENT care.: Yes I certify that my determination is in accordance with my understanding of Medicare's requirements for reasonable and necessary INPATIENT services [42 CFR 412.3e].: Yes Medical Necessity: Need Close Monitoring Due to Risk of Patient Decompensation, Need for IV Antibiotics Post Hospital Care: D/C Couples Therapist Documentation - Plan Summary Plan Summary: Is to current medications Very extensive discussions with the patient and the regarding the patient' s current conditions while the patient is feeling already better no headaches patients pretty much she do not want to go for the lumbar puncture and I do not think so patients need at this point
[2017-12-30] MEDS: BUSPIRONE HCL 10 MG TABLET PO SCH ×2 (10:38→21:16)
[2017-12-30] MEDS: LOSARTAN POTASSIUM 50 MG TABLET PO SCH ×2 (10:38→21:15)
[2017-12-30] MEDS: DOCUSATE SODIUM 100 MG CAPSULE PO SCH ×2 (10:38→17:08)
[2017-12-30] MEDS: PREDNISONE 20 MG TABLET PO SCH ×2 (10:39→17:08)
[2017-12-30] MEDS: ENOXAPARIN SODIUM INJ 40 MG/0.4 ML DISP.SYRIN SUBCUT SCH (10:39)
[2017-12-30] MEDS: METOPROLOL TARTRATE 25 MG TABLET PO SCH ×2 (10:39→21:15)
[2017-12-30] MEDS: FUROSEMIDE 20 MG TABLET PO SCH ×2 (10:39→17:08)
[2017-12-30] MEDS: POLYETHYLENE GLYCOL 3350 POWDER 17 GM/1 PACKET PO SCH (10:39)
[2017-12-30] MEDS: ASPIRIN 81 MG TABLET, ENT COATED PO SCH (10:39)
[2017-12-30] MEDS: FAMOTIDINE 20 MG TABLET PO SCH ×2 (10:40→21:15)
[2017-12-30] MEDS: GUAIFENESIN 600 MG TABLET.SA PO SCH ×2 (10:40→21:16)
[2017-12-30] MEDS: PANTOPRAZOLE SODIUM 40 MG VIAL IV SCH ×2 (10:40→21:13)
[2017-12-30] MEDS: 1/2 NORMAL SALINE 1,000 ML IV PRN (11:03)
[2017-12-30] MEDS: BUTALB/ACETAMINOPHEN/CAFFEINE 1 TAB EACH PO PRN (13:20)
--- NOTE | 2017-12-30 14:59 | Progress Note ---
Provider Note Provider Note: CARDIOLOGY PROGRESS NOTES by Dr. Randi Kaye on 12/30/2017. SUBJECTIVE: The patient states he feels much better. There is no headache or chest pain or discomfort. There is no arrhythmias seen on the monitor. There is no PND orthopnea. His blood pressure is much better but still can be controlled slightly better to have optimal control. There is no cough or wheezing. The patient denies any shortness of breath. There is no TIA CVA symptoms. His bedside PFT results are still awaited. There is no arrhythmias seen on the monitor. He has had a normal bowel movement. PHYSICAL EXAMINATION: The patient is morbidly obese. In no acute distress. He is well-groomed. Selected Entries 12/30/17 12/30/17 07:42 11:36 Temperature 98.0 F 97.5 F Temperature Oral Oral Source Pulse Rate 74 81 Respiratory 20 20 Rate Blood Pressure 147/65 H 158/73 H Blood Pressure 92 101 Mean BP Location Left Arm Right Arm BP Position Supine Supine O2 Sat by Pulse 100 94 Oximetry Oxygen Flow 2.00 Rate Oxygen Delivery Bipap Nasal Cannula Method Percent of 40 Oxygen HEAD: Is atraumatic normocephalic. EYES: Pupils are equal round regular reactive to light accommodation. Extraocular movements are normal. There is no conjunctival pallor. T ABDOMEN here is no scleral icterus. EARS: Tympanic membranes are intact. Extremity external auditory canals are clear. NOSE: There is no inflammation of the nasal mucous membrane. There is no deviated nasal septum. MOUTH: Mucous membranes of mouth are moist tongue is moist, there is no ulcers in the mouth. There is no bleeding from the gums. THROAT: There is no redness of the oropharynx. There is no exudates. SKIN: There is no skin lesions or skin rashes. There is no particular ecchymosis. NECK: Is supple. There is no definite JVD. Carotids are equal without any bruits. There is no lymphadenopathy. There is no goiter. There is no accessory muscles of respiration use. Trachea central. LUNGS: There is small area of absent breath sounds in both bases. With dullness on percussion in these areas. Elsewhere on percussion of the lungs show hyperresonance. There is there is no rhonchi ,rales, or wheezing . There is prolonged expiration, and diminished air entry throughout. There is no definite rales of CHF. ABDOMEN: Is obese. Nontender. There is no hepatosplenic megaly. Bowel sounds are well heard. There is no rebound guarding or rigidity. EXTREMITIES: Femorals are deep. Femorals are decreased. There is no femoral bruits. There is some mild pedal edema. There is no DVT or cellulitis. There is no calf tenderness. Leg pulses are diminished,slightly. There is no cyanosis or clubbing. Capillary refill is normal. BUSINESS SERVICES SALES REPRESENTATIVE: The patient is conscious awake alert, oriented x3. There is no focal deficits. PSYCHIATRIC: The patient judgment and insight are intact his affect is normal. 12/30/17 12/30/17 05:04 05:04 WBC 11.7 H Hgb 12.0 L Hct 36.7 L Plt Count 280 Sodium 138.8 Potassium 4.2 Chloride 100 Carbon Dioxide 26 Anion Gap 13 BUN 29 H Creatinine 0.74 Est GFR (Non-Af Amer) > 60 Glucose 278 H Calcium 8.3 L MPRESSION/RECOMMENDATION: 1. Shortness of breath, with orthopnea, and leg edema: This could be secondary to a combination of the patient's patchy pneumonitis/acute exacerbation of COPD with possible pulmonary hypertension causing right heart failure. Unable to get a good echocardiogram to assess LV function, and degree of pulmonary hypertension, in spite of repeat attempt. LV ejection fraction is normal at 72% by MUGA at present agree with continue Lasix 20 mg IV daily, and continue antibiotics and respiratory treatments. Note with the current treatment the patient's symptoms are resolved. Also of note the right ventricle ejection fraction has been calculated at 48% which is still normal. Hence this precludes right heart failure. Note that the patient's 24-hour urine shows a proteinuria of 6.9 g, which is in the nephrotic range, but I am not sure if this is accurate due to the patient's high urine ascorbic acid levels. Note that the patient shortness of breath is completely resolved. 2. Acute exacerbation of COPD: Continue current respiratory treatments, would recommend steroids, antibiotics. This is improving 3. Patchy Pneumonitis by chest x-ray: Agree with the antibiotics and respiratory treatments. We will recheck the patient's chest x-ray tomorrow 4. Needs assessment for pulmonary hypertension. Note repeat attempted echo imaging not very successful. With this diagnosis is doubtful in view of the normal right ventricular ejection fraction by MUGA scan. 5. Hypertension: Better controlled. Would recommend increase the patient's antihypertensives. Due to headaches. hydralazine. As discussed with Dr. Fortune , will start the patient on clonidine 0.1 mg p.o. every 8 hours, and increase it as tolerated. Note that the patient will be put back on amlodipine 5 mg p.o. twice daily. 6. Diabetes mellitus type 2: Continue current anti-diabetic medication. 7. Obstructive Sleep Apnea: Continue CPAP. Would need to make sure that patient recently had his CPAP titrated. 8. Morbid Obesity: 9. Chronic back pain. 10. Chest Pain: Noncardiac. No acute EKG changes, no evidence of elevation of troponin I/cardiac biomarkers. Hence clearly noncardiac. This is resolved. 11. Headaches:? Etiology. This is secondary to medications, and his elevated blood pressure. This is resolved totally. BUSINESS SERVICES SALES REPRESENTATIVE workup of headaches is negative so far. 12. 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 Will discuss with attending to see if the patient needs to see a form layer. Later once the blood pressure being controlled we will probably repeat the patient's 24-hour urine protein in about a month to see if this is due to the patient's elevated blood pressure. Would recommend an outpatient Lexiscan Cardiolite stress test. Medications reviewed, and medications adjusted. Medical decision making is of moderate complexity. 40 minutes spent on this patient more than 50% of time spent in direct patient care. Discussed the patient's clinical condition and his lab results with the patient and patient's . Josue discussed the management plan with attending physician.
[2017-12-30] MEDS ORDERED: AMLODIPINE BESYLATE 2.5 MG TABLET PO ONE (15:00)
[2017-12-30] MEDS: AMLODIPINE BESYLATE 5 MG TABLET PO SCH (21:15)
[2017-12-31] MEDS: IPRATROPIUM/ALBUTEROL 0.5-2.5 MG/3 ML AMPUL NEB SCH ×6 (00:18→19:42)
[2017-12-31] MEDS: CEFEPIME 2 GM/D5W RTU 2 GM/50 ML RTUPB IV SCH ×2 (03:52→14:10)
[2017-12-31 04:46] LABS: ABSOLUTE LYMPHOCYTES (AUTO) 0.9 10^3/uL (0.5-4.7); ABSOLUTE MONOCYTES (AUTO) 0.6 10^3/uL (0.1-1.4); ABSOLUTE NEUT (AUTO) 12.4 10^3/uL (1.7-8.2); HEMATOCRIT 36.2 % (37.9-51.0); HEMOGLOBIN 12.3 g/dL (13.5-17.0); LYMPHOCYTES % (AUTO) 6.8 % (13-45); MEAN CORPUSCULAR HEMOGLOBIN 27.4 pg (27.0-33.4); MEAN CORPUSCULAR VOLUME 81 fl (80-97); MONOCYTES % (AUTO) 4.2 % (3-13); PLATELET COUNT 247 10^3/uL (150-450); RED BLOOD COUNT 4.49 10^6/uL (4.35-5.55); RED CELL DISTRIBUTION WIDTH 15.7 % (11.5-14.0); TOTAL CELLS COUNTED % (AUTO) 100 %; WHITE BLOOD COUNT 13.9 10^3/uL (4.0-10.5)
[2017-12-31 05:00] LABS: ANION GAP 9 (5-19); BLOOD UREA NITROGEN 37 mg/dL (7-20); CALCIUM 8.7 mg/dL (8.4-10.2); CARBON DIOXIDE 29 mmol/L (22-30); CHLORIDE 101 mmol/L (98-107); GLUCOSE 287 mg/dL (75-110); POTASSIUM 4.3 mmol/L (3.6-5.0); SODIUM 138.9 mmol/L (137-145)
[2017-12-31] MEDS: CLONIDINE HCL 0.1 MG TABLET PO SCH ×3 (06:13→22:01)
[2017-12-31] MEDS: 1/2 NORMAL SALINE 1,000 ML IV PRN (06:15)
--- NOTE | 2017-12-31 09:09 | PDOC PROGRESS REPORT ---
Subjective Progress Note for:: 12/31/17 Subjective:: And is currently doing much better Patient's Mariano catheter out Patient's p.o. intake is good Patient's denied any chest pain denied any shortness of the breath No headache Reason For Visit: PNEUMONIA Physical Exam Vital Signs: Temp Pulse Resp BP Pulse Ox 97.4 F 79 20 155/70 H 98 12/31/17 07:52 12/31/17 07:52 12/31/17 07:52 12/31/17 07:52 12/31/17 07:52 Pulse Oximeter Nocturnal Start: 12/28/17 11: 19 Freq: RTQ4 Status: Complete Document 12/29/17 04:00 LRO (Rec: 12/29/17 05:28 LRO [email or web address]) Nocturnal Pulse Oximetry Equipment Usage Equipment in Use Oxygen Delivery Method (includes room Bi-pap air) O2 Sat by Pulse Oximetry (92-100) 98 Continuous SpO2 Machine # 11 Intake & Output 12/30/17 12/31/17 01/01/18 07:59 06:59 06:59 Intake Total Output Total Balance Weight General appearance: PRESENT: no acute distress, well-developed, well-nourished Head exam: PRESENT: atraumatic, normocephalic Eye exam: PRESENT: conjunctiva pink, EOMI, PERRLA. ABSENT: scleral icterus Ear exam: PRESENT: normal external ear exam Mouth exam: PRESENT: moist, tongue midline Neck exam: PRESENT: full ROM. ABSENT: carotid bruit, JVD, lymphadenopathy, thyromegaly Respiratory exam: PRESENT: clear to auscultation rafia Cardiovascular exam: PRESENT: RRR. ABSENT: diastolic murmur, rubs, systolic murmur Pulses: PRESENT: normal dorsalis pedis pul, +2 pedal pulses bilateral Vascular exam: PRESENT: normal capillary refill GI/Abdominal exam: PRESENT: normal bowel sounds, soft. ABSENT: distended, guarding, mass, organolmegaly, rebound, tenderness Rectal exam: PRESENT: deferred Extremities exam: ABSENT: pedal edema Musculoskeletal exam: PRESENT: ambulatory Neurological exam: PRESENT: alert, awake, oriented to person, oriented to place , oriented to time, oriented to situation, CN II-XII grossly intact. ABSENT: motor sensory deficit Psychiatric exam: PRESENT: appropriate affect, normal mood. ABSENT: homicidal ideation, suicidal ideation Skin exam: PRESENT: dry, intact, warm. ABSENT: cyanosis, rash Results Laboratory Results: 12/31/17 04:28 12/31/17 04:28 12/31/17 12/31/17 04:28 04:28 WBC 13.9 H RBC 4.49 Hgb 12.3 L Hct 36.2 L MCV 81 MCH 27.4 MCHC 34.0 RDW 15.7 H Plt Count 247 Seg Neutrophils % 89.0 H Lymphocytes % 6.8 L Monocytes % 4.2 Eosinophils % 0.0 Basophils % 0.0 Absolute Neutrophils 12.4 H Absolute Lymphocytes 0.9 Absolute Monocytes 0.6 Absolute Eosinophils 0.0 Absolute Basophils 0.0 Sodium 138.9 Potassium 4.3 Chloride 101 Carbon Dioxide 29 Anion Gap 9 BUN 37 H Creatinine 0.95 Est GFR ( Amer) > 60 Est GFR (Non-Af Amer) > 60 Glucose 287 H Calcium 8.7 12/26/17 12/26/17 12/26/17 10:17 10:17 16:05 Creatine Kinase 56 55 CK-MB (CK-2) 1.15 Troponin I 0.019 NT-Pro-B Natriuret Pep 12/26/17 12/26/17 12/26/17 16:05 22:04 22:04 Creatine Kinase 51 L CK-MB (CK-2) 1.30 1.12 Troponin I 0.019 0.027 NT-Pro-B Natriuret Pep 12/27/17 12/27/17 12/27/17 04:42 07:39 07:39 Creatine Kinase 54 L CK-MB (CK-2) 1.29 Troponin I 0.030 NT-Pro-B Natriuret Pep 2200 H 12/27/17 12/27/17 12/27/17 15:00 15:00 19:12 Creatine Kinase 108 122 CK-MB (CK-2) 1.57 Troponin I 0.026 NT-Pro-B Natriuret Pep 12/27/17 12/28/17 12/29/17 19:12 05:28 08:56 Creatine Kinase CK-MB (CK-2) 1.58 Troponin I 0.029 NT-Pro-B Natriuret Pep 1070 H 694 Impressions: Abdomen/Pelvis CT 12/26/17 00:00 IMPRESSION: 1. SLIGHT HAZY APPEARANCE OF THE MESENTERY, "ANETA MESENTERY" . THIS IS A NONSPECIFIC FINDING AND COULD BE INCIDENTAL BUT COULD BE INDICATIVE OF INFLAMMATORY PROCESS. 2. NO OTHER SIGNIFICANT OR ACUTE FINDING IN THE ABDOMEN OR PELVIS ON CT SCAN WITH IV CONTRAST. Chest/Abdomen CTA 12/26/17 00:00 IMPRESSION: 1. NORMAL CTA OF THE CHEST. NO PULMONARY EMBOLI. 2. MODERATE BILATERAL PLEURAL EFFUSIONS WITH SCATTERED BASILAR ATELECTASIS. Chest X-Ray 12/27/17 00:00 IMPRESSION: RIGHT BASILAR AIRSPACE DISEASE SLIGHTLY MORE PROMINENT. THIS COULD BE DUE TO PROGRESSIVE ATELECTASIS VERSUS DEVELOPING PNEUMONIA. Cardiac Imaging Nuclear Medicine 12/28/17 00:00 IMPRESSION: NORMAL CARDIAC MUGA STUDY. NORMAL LEFT VENTRICULAR FUNCTION WITH VALUES ABOVE. Chest Ultrasound 12/28/17 00:00 IMPRESSION: Small bilateral pleural effusions. Head CTA 12/29/17 00:00 IMPRESSION: NO ACUTE INTRACRANIAL IMAGING FINDINGS. NO CTA EVIDENCE OF STENOSIS OR ANEURYSM OF THE [place] OF [place]. EVIDENCE OF ACUTE STROKE: NO. Head MRI 12/29/17 00:00 IMPRESSION: Chronic ischemic changes. EVIDENCE OF ACUTE STROKE: NO. Assessment & Plan - Diagnosis (1) COPD (chronic obstructive pulmonary disease) with acute bronchitis Is this a current diagnosis for this admission?: Yes Plan: Continues to nebulizer treatment (2) Hypertension Qualifiers: Hypertension type: essential hypertension Qualified Code(s): I10 - Essential (primary) hypertension Is this a current diagnosis for this admission?: Yes Plan: Currently all stable (3) Pneumonia Qualifiers: Pneumonia type: due to unspecified organism Laterality: bilateral Lung location: unspecified part of lung Qualified Code(s): J18.9 - Pneumonia, unspecified organism Is this a current diagnosis for this admission?: Yes Plan: Repeat the chest x-ray (4) Shortness of breath Is this a current diagnosis for this admission?: Yes Plan: Patient is currently using the BiPAP at night works much better compared to the CPAP will follow with the pulmonary probably need to readjust his CPAP (5) Abdominal distension Is this a current diagnosis for this admission?: Yes Plan: Currently all better (6) Sleep apnea Qualifiers: Sleep apnea type: unspecified type Qualified Code(s): G47.30 - Sleep apnea , unspecified Is this a current diagnosis for this admission?: Yes Plan: cont use c pap (7) Pleural effusion Is this a current diagnosis for this admission?: Yes Plan: Clear all stable (8) Headache Qualifiers: Headache type: unspecified Intractability: intractable Is this a current diagnosis for this admission?: Yes Plan: Currently all resolved (9) Nausea Is this a current diagnosis for this admission?: Yes - Time Time Spent with patient: 15-24 minutes Medications reviewed and adjusted accordingly: Yes Anticipated discharge: Home Within: Other - Inpatient Certification Based on my medical assessment, after consideration of the patient's comorbidities, presenting symptoms, or acuity I expect that the services needed warrant INPATIENT care.: Yes I certify that my determination is in accordance with my understanding of Medicare's requirements for reasonable and necessary INPATIENT services [42 CFR 412.3e].: Yes Medical Necessity: Need Close Monitoring Due to Risk of Patient Decompensation Post Hospital Care: D/C Clinical Support Specialist Documentation - Plan Summary Plan Summary: Discussed with the patient and the regarding the patient's current conditions patient is doing a much better
--- NOTE | 2017-12-31 09:21 | RADIOLOGY REPORT (SQ) ---
EXAM DESCRIPTION: CHEST 2 VIEWS COMPLETED DATE/TIME: 12/31/2017 9:12 am REASON FOR STUDY: Pneumonia COMPARISON: 12/27/2017. EXAM PARAMETERS: NUMBER OF VIEWS: two views TECHNIQUE: Digital Frontal and Lateral radiographic views of the chest acquired. RADIATION DOSE: NA LIMITATIONS: none FINDINGS: LUNGS AND PLEURA: Faint basilar densities with small bilateral pleural effusions. MEDIASTINUM AND HILAR STRUCTURES: No masses or contour abnormalities. HEART AND VASCULAR STRUCTURES: Heart normal size. No evidence for failure. BONES: No acute findings. HARDWARE: None in the chest. OTHER: No other significant finding. IMPRESSION: FAINT BASILAR DENSITIES WITH SMALL BILATERAL PLEURAL EFFUSIONS. NO SIGNIFICANT INTERVAL CHANGE. TECHNICAL DOCUMENTATION: JOB ID: [id number] [employer]- All Rights Reserved Reading location - IP/workstation name: [email or web address]
[2017-12-31] MEDS: PANTOPRAZOLE SODIUM 40 MG VIAL IV SCH ×2 (09:22→22:02)
[2017-12-31] MEDS: ENOXAPARIN SODIUM INJ 40 MG/0.4 ML DISP.SYRIN SUBCUT SCH (09:22)
[2017-12-31] MEDS: HUM INSULIN NPH/REG INSULIN HM 100 UNIT/1 ML 3 ML SUBCUT SCH ×2 (09:23→22:04)
[2017-12-31] MEDS: POLYETHYLENE GLYCOL 3350 POWDER 17 GM/1 PACKET PO SCH (09:23)
[2017-12-31] MEDS: INSULIN LISPRO 100 UNIT/ML 3 ML VIAL SUBCUT PRN ×4 (09:23→22:02)
[2017-12-31] MEDS: ASPIRIN 81 MG TABLET, ENT COATED PO SCH (09:24)
[2017-12-31] MEDS: GUAIFENESIN 600 MG TABLET.SA PO SCH ×2 (09:24→22:01)
[2017-12-31] MEDS: FAMOTIDINE 20 MG TABLET PO SCH ×2 (09:24→22:02)
[2017-12-31] MEDS: LOSARTAN POTASSIUM 50 MG TABLET PO SCH ×2 (09:24→22:01)
[2017-12-31] MEDS: DOCUSATE SODIUM 100 MG CAPSULE PO SCH ×2 (09:24→17:22)
[2017-12-31] MEDS: FUROSEMIDE 20 MG TABLET PO SCH ×2 (09:25→17:22)
[2017-12-31] MEDS: AMLODIPINE BESYLATE 5 MG TABLET PO SCH ×2 (09:25→22:01)
[2017-12-31] MEDS: BUSPIRONE HCL 10 MG TABLET PO SCH ×2 (09:25→22:02)
[2017-12-31] MEDS: METOPROLOL TARTRATE 25 MG TABLET PO SCH ×2 (09:25→22:02)
[2017-12-31] MEDS ORDERED: PREDNISONE 20 MG TABLET PO SCH (10:00)
[2017-12-31] MEDS: ACETAMINOPHEN 325 MG TABLET PO PRN (10:35)
[2017-12-31] MEDS ORDERED: ACETAMINOPHEN 325 MG TABLET PO PRN (13:49)
--- NOTE | 2017-12-31 19:33 | Progress Note ---
Provider Note Provider Note: CARDIOLOGY PROGRESS NOTES by Dr. Randi Kaye on 12/31/2017. SUBJECTIVE: The patient denies any chest pain or discomfort. There is no PND orthopnea. There is no cough or sputum production. There is no anginal symptoms. There is no arrhythmias. The patient denies palpitations near syncope or syncope. He has only trace leg edema now. The patient has no wheezing. There is no TIA CVA symptoms. PHYSICAL EXAMINATION: The patient is morbidly obese. He is in no acute distress. He is well-groomed. Selected Entries 12/31/17 11:21 Temperature 97.8 F Temperature Oral Source Pulse Rate 76 Respiratory 20 Rate Blood Pressure 145/74 H Blood Pressure 97 Mean BP Location Left Arm BP Position Supine O2 Sat by Pulse 100 Oximetry Oxygen Flow 2.00 Rate Oxygen Delivery Nasal Cannula Method HEAD: Is atraumatic normocephalic. EYES: Pupils are equal round regular reactive to light accommodation. Extraocular movements are normal. There is no conjunctival pallor. T ABDOMEN here is no scleral icterus. EARS: Tympanic membranes are intact. Extremity external auditory canals are clear. NOSE: There is no inflammation of the nasal mucous membrane. There is no deviated nasal septum. MOUTH: Mucous membranes of mouth are moist tongue is moist, there is no ulcers in the mouth. There is no bleeding from the gums. THROAT: There is no redness of the oropharynx. There is no exudates. SKIN: There is no skin lesions or skin rashes. There is no particular ecchymosis. NECK: Is supple. There is no definite JVD. Carotids are equal without any bruits. There is no lymphadenopathy. There is no goiter. There is no accessory muscles of respiration use. Trachea central. LUNGS: There is small area of absent breath sounds in both bases. With dullness on percussion in these areas. Elsewhere on percussion of the lungs show hyperresonance. There is there is no rhonchi ,rales, or wheezing . There is prolonged expiration, and diminished air entry throughout. There is no definite rales of CHF. ABDOMEN: Is obese. Nontender. There is no hepatosplenic megaly. Bowel sounds are well heard. There is no rebound guarding or rigidity. EXTREMITIES: Femorals are deep. Femorals are decreased. There is no femoral bruits. There is some mild pedal edema. There is no DVT or cellulitis. There is no calf tenderness. Leg pulses are diminished,slightly. There is no cyanosis or clubbing. Capillary refill is normal. CLAMSHELL ENGINEER: The patient is conscious awake alert, oriented x3. There is no focal deficits. PSYCHIATRIC: The patient judgment and insight are intact his affect is normal. 12/31/17 12/31/17 12/31/17 04:28 04:28 11:34 WBC 13.9 H Hgb 12.3 L Hct 36.2 L MCV 81 Plt Count 247 Sodium 138.9 Potassium 4.3 Chloride 101 Carbon Dioxide 29 Anion Gap 9 BUN 37 H Creatinine 0.95 Est GFR (Non-Af Amer) > 60 Glucose 287 H Calcium 8.7 Urine Total Protein 346.1 H CHEST X-ray shows very faint bilateral basal densities with very small pleural effusions. IMPRESSION/RECOMMENDATION: 1. Shortness of breath, with orthopnea, and leg edema: This could be secondary to a combination of the patient's patchy pneumonitis/acute exacerbation of COPD with possible pulmonary hypertension causing right heart failure. Unable to get a good echocardiogram to assess LV function, and degree of pulmonary hypertension, in spite of repeat attempt. LV ejection fraction is normal at 72% by MUGA at present agree with continue Lasix 20 mg IV daily, and continue antibiotics and respiratory treatments. Note with the current treatment the patient's symptoms are resolved. Also of note the right ventricle ejection fraction has been calculated at 48% which is still normal. Hence this precludes right heart failure. Note that the patient's 24-hour urine shows a proteinuria of 6.9 g, which is in the nephrotic range, but I am not sure if this is accurate due to the patient's high urine ascorbic acid levels. Note that the patient shortness of breath is completely resolved. Would strongly recommend to decrease the patient's Lasix as the patient's BUN is rising, although still the GFR is normal. 2. Acute exacerbation of COPD: Continue current respiratory treatments, would recommend steroids, antibiotics. This this is resolved 3. Patchy Pneumonitis by chest x-ray: Agree with the antibiotics and respiratory treatments. This is vastly improved, almost resolved, with a chest x-ray and very faint bibasilar densities and a small bilateral pleural effusions. 4. Needs assessment for pulmonary hypertension. Note repeat attempted echo imaging not very successful. With this diagnosis is doubtful in view of the normal right ventricular ejection fraction by MUGA scan. 5. Hypertension: Better controlled. Would recommend increase the patient's antihypertensives. Due to headaches. hydralazine. As discussed with Dr. Fortune , will start the patient on clonidine 0.1 mg p.o. every 8 hours, and increase it as tolerated. Note that the patient will be put back on amlodipine 5 mg p.o. twice daily. 6. Diabetes mellitus type 2: Continue current anti-diabetic medication. 7. Obstructive Sleep Apnea: Continue CPAP. Would need to make sure that patient recently had his CPAP titrated. 8. Morbid Obesity: 9. Chronic back pain. 10. Chest Pain: Noncardiac. No acute EKG changes, no evidence of elevation of troponin I/cardiac biomarkers. Hence clearly noncardiac. This is resolved. 11. Headaches:? Etiology. This is secondary to medications, and his elevated blood pressure. This is resolved totally. CLAMSHELL ENGINEER workup of headaches is negative so far. 12. 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 Will discuss with attending to see if the patient needs to see a chassis engineer. Patient's repeat urine analysis shows significant proteinuria. Hence will recommend strongly the patient to be seen in consult by chassis engineer. Would recommend an outpatient Lexiscan Cardiolite stress test. Medications reviewed discussed the management plan with attending physician. 40 minutes spent on this patient more than 50% of time spent in direct patient care discussed with the patient and patient's the patient's clinical condition. Cardiac status is stable. Medical decision making is of moderate complexity. Will sign off the case, and follow the patient as outpatient as desired by the patient and his . 40 minutes spent on this patient more than 50% time spent in direct patient care.
[2018-01-01] MEDS: IPRATROPIUM/ALBUTEROL 0.5-2.5 MG/3 ML AMPUL NEB SCH ×6 (00:08→20:17)
[2018-01-01] MEDS: CEFEPIME 2 GM/D5W RTU 2 GM/50 ML RTUPB IV SCH (03:50)
[2018-01-01 05:06] LABS: ABSOLUTE EOSINOPHILS # (AUTO) 0.3 10^3/uL (0.0-0.6); ABSOLUTE LYMPHOCYTES (AUTO) 2.3 10^3/uL (0.5-4.7); ABSOLUTE MONOCYTES (AUTO) 0.8 10^3/uL (0.1-1.4); ABSOLUTE NEUT (AUTO) 7.1 10^3/uL (1.7-8.2); BASOPHILS % (AUTO) 0.4 % (0-2); EOSINOPHILS % (AUTO) 2.5 % (0-6); HEMATOCRIT 36.5 % (37.9-51.0); HEMOGLOBIN 12.2 g/dL (13.5-17.0); LYMPHOCYTES % (AUTO) 22.4 % (13-45); MEAN CORPUSCULAR HEMOGLOBIN 27.2 pg (27.0-33.4); MEAN CORPUSCULAR HGB CONC 33.6 g/dL (32.0-36.0); MEAN CORPUSCULAR VOLUME 81 fl (80-97); MONOCYTES % (AUTO) 7.2 % (3-13); PLATELET COUNT 243 10^3/uL (150-450); RED BLOOD COUNT 4.49 10^6/uL (4.35-5.55); RED CELL DISTRIBUTION WIDTH 15.7 % (11.5-14.0); SEGMENTED NEUTROPHILS % (AUTO) 67.5 % (42-78); TOTAL CELLS COUNTED % (AUTO) 100 %; WHITE BLOOD COUNT 10.5 10^3/uL (4.0-10.5)
[2018-01-01 05:30] LABS: ANION GAP 11 (5-19); BLOOD UREA NITROGEN 33 mg/dL (7-20); CALCIUM 9.1 mg/dL (8.4-10.2); CARBON DIOXIDE 29 mmol/L (22-30); CHLORIDE 104 mmol/L (98-107); GLUCOSE 216 mg/dL (75-110); SODIUM 144.1 mmol/L (137-145)
[2018-01-01] MEDS: CLONIDINE HCL 0.1 MG TABLET PO SCH ×3 (06:31→21:24)
[2018-01-01] MEDS: INSULIN LISPRO 100 UNIT/ML 3 ML VIAL SUBCUT PRN ×3 (08:36→17:42)
[2018-01-01] MEDS: LANSOPRAZOLE 30 MG TAB.RAP.DR PO SCH ×2 (09:12→17:43)
[2018-01-01] MEDS: ASPIRIN 81 MG TABLET, ENT COATED PO SCH (09:12)
[2018-01-01] MEDS: METOPROLOL TARTRATE 25 MG TABLET PO SCH ×2 (09:12→21:23)
[2018-01-01] MEDS: GUAIFENESIN 600 MG TABLET.SA PO SCH ×2 (09:12→21:23)
[2018-01-01] MEDS: LOSARTAN POTASSIUM 50 MG TABLET PO SCH ×2 (09:12→21:23)
[2018-01-01] MEDS: ENOXAPARIN SODIUM INJ 40 MG/0.4 ML DISP.SYRIN SUBCUT SCH (09:13)
[2018-01-01] MEDS: BUSPIRONE HCL 10 MG TABLET PO SCH ×2 (09:13→21:23)
[2018-01-01] MEDS: FAMOTIDINE 20 MG TABLET PO SCH ×2 (09:13→21:23)
[2018-01-01] MEDS: AMLODIPINE BESYLATE 5 MG TABLET PO SCH ×2 (09:13→21:23)
[2018-01-01] MEDS: FUROSEMIDE 20 MG TABLET PO SCH ×2 (09:13→17:43)
[2018-01-01] MEDS: DOCUSATE SODIUM 100 MG CAPSULE PO SCH ×2 (09:13→17:43)
[2018-01-01] MEDS: HUM INSULIN NPH/REG INSULIN HM 100 UNIT/1 ML 3 ML SUBCUT SCH ×2 (09:14→21:40)
[2018-01-01] MEDS: POLYETHYLENE GLYCOL 3350 POWDER 17 GM/1 PACKET PO SCH (09:14)
--- NOTE | 2018-01-01 09:23 | XCELERA REPORT ---
[address] [address] Transthoracic Echocardiogram Report Name: AMAURY LAW Age: 67 yrs Gender: Male : 1950 Patient Status: Inpatient Patient Location: [address] [place] [address] Study Date: 12/26/2017 09:35 AM Procedure: A complete two-dimensional transthoracic echocardiogram was performed (2D, M-mode, spectral and color flow Doppler). The study was technically difficult with many images being suboptimal in quality. Reason For Study: chf Ordering Physician: ANANDA FERNANDEZ Performed By: Stacy Rangel Interpretation Summary The study was technically difficult with many images being suboptimal in quality. The left ventricular ejection fraction is preserved. Consider additional methods to assess LVEF such as MUGA scan, CTA heart, cardiac MRI, RAYMUNDO, etc. if clinically indicated. The left ventricle is grossly normal size. There is mild concentric left ventricular hypertrophy. Doppler measurements suggest pseudonormalized left ventricular relaxation, which is associated with grade II/IV or mild to moderate diastolic dysfunction Regional wall motion abnormalities cannot be excluded due to limited visualization. Right ventricular function cannot be assessed due to poor image quality. The left atrium is mildly dilated. Right atrium not well visualized secondary to technical limitations There is a trace amount of mitral regurgitation There is no mitral valve stenosis. No aortic regurgitation is present. There is no aortic valve stenosis There is a trace or physiologic amount of tricuspid regurgitation Tricuspid regurgitation jet envelope not well defined to measure RV systolic pressure accurately. There is no tricuspid stenosis. The aortic root is not well visualized. The inferior vena cava was not well visualized There is no pericardial effusion. MMode/2D Measurements & Calculations RVDd: 3.4 cm LVIDd: 6.4 cm FS: 33.3 % Ao root diam: 3.4 cm IVSd: 1.1 cm LVIDs: 4.2 cm EDV(Teich): 206.6 ml Ao root area: 9.3 cm2 LVPWd: 1.3 cm ESV(Teich): 80.7 ml EF(Teich): 60.9 % Doppler Measurements & Calculations MV E max jenn: MV dec slope: Ao V2 max: LV V1 max P.3 cm/sec 118.3 cm/sec 4.3 mmHg MV A max jenn: 372.7 cm/sec2 Ao max PG: LV V1 max: 81.0 cm/sec MV dec time: 0.15 sec 5.6 mmHg 103.1 cm/sec MV E/A: 0.68 PA V2 max: 96.4 cm/sec PA max P.7 mmHg Left Ventricle The left ventricle is grossly normal size. There is mild concentric left ventricular hypertrophy. The left ventricular ejection fraction is preserved. Consider additional methods to assess LVEF such as MUGA scan, CTA heart, cardiac MRI, RAYMUNDO, etc. if clinically indicated. Doppler measurements suggest pseudonormalized left ventricular relaxation, which is associated with grade II/IV or mild to moderate diastolic dysfunction. Regional wall motion abnormalities cannot be excluded due to limited visualization. Right Ventricle The right ventricle is not well visualized secondary to technical limitations. Right ventricular function cannot be assessed due to poor image quality. Atria Right atrium not well visualized secondary to technical limitations. The left atrium is mildly dilated. Interarterial septum not well visualized and not well dopplered. Cannot comment on ASD/PFO presence. Mitral Valve The mitral valve leaflets are sclerotic and show some degree of functional abnormality. There is no mitral valve stenosis. There is a trace amount of mitral regurgitation. Aortic Valve The aortic valve is not well visualized secondary to technical limitations. The aortic valve opens well. There is no aortic valve stenosis. No aortic regurgitation is present. Tricuspid Valve The tricuspid valve is not well visualized secondary to technical limitations. There is no tricuspid stenosis. There is a trace or physiologic amount of tricuspid regurgitation. Tricuspid regurgitation jet envelope not well defined to measure RV systolic pressure accurately. Pulmonic Valve The pulmonic valve is not well visualized. Great Vessels The aortic root is not well visualized. The inferior vena cava was not well visualized. Effusions There is no pericardial effusion. : ANANDA FERNANDEZ > Michele Norris
--- NOTE | 2018-01-01 09:30 | PDOC PROGRESS REPORT ---
Subjective Progress Note for:: 01/01/18 Subjective:: c/o nausea Reason For Visit: PNEUMONIA Physical Exam Vital Signs: Temp Pulse Resp BP Pulse Ox 97.7 F 74 18 168/71 H 94 01/01/18 07:32 01/01/18 07:42 01/01/18 07:42 01/01/18 07:32 01/01/18 07:42 Pulse Oximeter Nocturnal Start: 12/28/17 11: 19 Freq: RTQ4 Status: Complete Document 12/29/17 04:00 LRO (Rec: 12/29/17 05:28 LRO [id number]) Nocturnal Pulse Oximetry Equipment Usage Equipment in Use Oxygen Delivery Method (includes room Bi-pap air) O2 Sat by Pulse Oximetry (92-100) 98 Continuous SpO2 Machine # 11 Intake & Output 12/31/17 01/01/18 01/02/18 06:59 06:59 06:59 Intake Total 1950 400 Output Total 600 Balance 1350 400 Weight 136.9 kg General appearance: PRESENT: no acute distress, cooperative, disheveled, morbidly obese Head exam: PRESENT: atraumatic, normocephalic Eye exam: PRESENT: conjunctiva pale, EOMI. ABSENT: nystagmus, periorbital swelling Mouth exam: PRESENT: dry mucosa, neck supple, tongue midline Teeth exam: PRESENT: poor dentation Neck exam: ABSENT: carotid bruit, JVD, lymphadenopathy, thyromegaly, tracheal deviation, tracheostomy Respiratory exam: PRESENT: decreased breath sounds, prolonged expiratory phas, rhonchi, unlabored. ABSENT: rales, retraction, stridor Cardiovascular exam: PRESENT: RRR, +S1, +S2 Pulses: PRESENT: normal radial pulses GI/Abdominal exam: PRESENT: soft Extremities exam: ABSENT: calf tenderness, clubbing, joint swelling Musculoskeletal exam: ABSENT: deformity, dislocation Neurological exam: PRESENT: awake Psychiatric exam: PRESENT: flat affect Skin exam: PRESENT: dry, warm Results Laboratory Results: 01/01/18 04:27 01/01/18 04:27 01/01/18 01/01/18 04:27 04:27 WBC 10.5 RBC 4.49 Hgb 12.2 L Hct 36.5 L MCV 81 MCH 27.2 MCHC 33.6 RDW 15.7 H Plt Count 243 Seg Neutrophils % 67.5 Lymphocytes % 22.4 Monocytes % 7.2 Eosinophils % 2.5 Basophils % 0.4 Absolute Neutrophils 7.1 Absolute Lymphocytes 2.3 Absolute Monocytes 0.8 Absolute Eosinophils 0.3 Absolute Basophils 0.0 Sodium 144.1 Potassium 4.0 Chloride 104 Carbon Dioxide 29 Anion Gap 11 BUN 33 H Creatinine 0.81 Est GFR ( Amer) > 60 Est GFR (Non-Af Amer) > 60 Glucose 216 H Calcium 9.1 12/26/17 12:03 Blood Blood Culture - Final NO GROWTH IN 5 DAYS 12/26/17 10:17 Blood Blood Culture - Final NO GROWTH IN 5 DAYS 12/26/17 12/26/17 12/26/17 10:17 10:17 16:05 Creatine Kinase 56 55 CK-MB (CK-2) 1.15 Troponin I 0.019 NT-Pro-B Natriuret Pep 12/26/17 12/26/17 12/26/17 16:05 22:04 22:04 Creatine Kinase 51 L CK-MB (CK-2) 1.30 1.12 Troponin I 0.019 0.027 NT-Pro-B Natriuret Pep 12/27/17 12/27/17 12/27/17 04:42 07:39 07:39 Creatine Kinase 54 L CK-MB (CK-2) 1.29 Troponin I 0.030 NT-Pro-B Natriuret Pep 2200 H 12/27/17 12/27/17 12/27/17 15:00 15:00 19:12 Creatine Kinase 108 122 CK-MB (CK-2) 1.57 Troponin I 0.026 NT-Pro-B Natriuret Pep 12/27/17 12/28/17 12/29/17 19:12 05:28 08:56 Creatine Kinase CK-MB (CK-2) 1.58 Troponin I 0.029 NT-Pro-B Natriuret Pep 1070 H 694 Impressions: Abdomen/Pelvis CT 12/26/17 00:00 IMPRESSION: 1. SLIGHT HAZY APPEARANCE OF THE MESENTERY, "ANETA MESENTERY" . THIS IS A NONSPECIFIC FINDING AND COULD BE INCIDENTAL BUT COULD BE INDICATIVE OF INFLAMMATORY PROCESS. 2. NO OTHER SIGNIFICANT OR ACUTE FINDING IN THE ABDOMEN OR PELVIS ON CT SCAN WITH IV CONTRAST. Chest/Abdomen CTA 12/26/17 00:00 IMPRESSION: 1. NORMAL CTA OF THE CHEST. NO PULMONARY EMBOLI. 2. MODERATE BILATERAL PLEURAL EFFUSIONS WITH SCATTERED BASILAR ATELECTASIS. Cardiac Imaging Nuclear Medicine 12/28/17 00:00 IMPRESSION: NORMAL CARDIAC MUGA STUDY. NORMAL LEFT VENTRICULAR FUNCTION WITH VALUES ABOVE. Chest Ultrasound 12/28/17 00:00 IMPRESSION: Small bilateral pleural effusions. Head CTA 12/29/17 00:00 IMPRESSION: NO ACUTE INTRACRANIAL IMAGING FINDINGS. NO CTA EVIDENCE OF STENOSIS OR ANEURYSM OF THE [place]. EVIDENCE OF ACUTE STROKE: NO. Head MRI 12/29/17 00:00 IMPRESSION: Chronic ischemic changes. EVIDENCE OF ACUTE STROKE: NO. Chest X-Ray 12/31/17 00:00 IMPRESSION: FAINT BASILAR DENSITIES WITH SMALL BILATERAL PLEURAL EFFUSIONS. NO SIGNIFICANT INTERVAL CHANGE. Assessment & Plan - Diagnosis (1) COPD (chronic obstructive pulmonary disease) with acute bronchitis Is this a current diagnosis for this admission?: Yes Plan: Obesity hypoventilation syndrome has a significant restrictive process due to the insufficient ventilation by obesity hypoventilation syndrome. BiPAP is insufficient to properly ventilate the. Patient, as evident by highly elevated PCO2 levels despite the usage of Bi-PAP. Therefore, noninvasive ventilation is required at this time for life sustaining measures. Failure to adequately ventilate patient will result in serious harm and/or (2) Hypertension Qualifiers: Hypertension type: essential hypertension Qualified Code(s): I10 - Essential (primary) hypertension Is this a current diagnosis for this admission?: Yes (3) Pneumonia Qualifiers: Pneumonia type: due to unspecified organism Laterality: bilateral Lung location: unspecified part of lung Qualified Code(s): J18.9 - Pneumonia, unspecified organism Is this a current diagnosis for this admission?: Yes
[2018-01-01] MEDS: CEFUROXIME 500 MG TABLET PO SCH ×2 (10:04→21:22)
[2018-01-01] MEDS: BUTALB/ACETAMINOPHEN/CAFFEINE 1 TAB EACH PO PRN (12:12)
[2018-01-01] MEDS: ONDANSETRON HCL INJ/PF 4 MG/2 ML SDV IV PRN (12:12)
--- NOTE | 2018-01-01 13:22 | PDOC PROGRESS REPORT ---
Subjective Progress Note for:: 01/01/18 Subjective:: And is currently doing much better Patient's Mariano catheter out Patient's p.o. intake is good Patient's denied any chest pain denied any shortness of the breath No headache Reason For Visit: PNEUMONIA Physical Exam Vital Signs: Temp Pulse Resp BP Pulse Ox 97.3 F 77 28 H 182/78 H 97 01/01/18 12:06 01/01/18 12:06 01/01/18 12:06 01/01/18 12:06 01/01/18 12:06 Pulse Oximeter Nocturnal Start: 12/28/17 11: 19 Freq: RTQ4 Status: Complete Document 12/29/17 04:00 LRO (Rec: 12/29/17 05:28 LRO [id number]) Nocturnal Pulse Oximetry Equipment Usage Equipment in Use Oxygen Delivery Method (includes room Bi-pap air) O2 Sat by Pulse Oximetry (92-100) 98 Continuous SpO2 Machine # 11 Intake & Output 12/31/17 01/01/18 01/02/18 06:59 06:59 06:59 Intake Total 1950 400 Output Total 600 375 Balance 1350 25 Weight 136.9 kg General appearance: PRESENT: no acute distress, well-developed, well-nourished Head exam: PRESENT: atraumatic, normocephalic Eye exam: PRESENT: conjunctiva pink, EOMI, PERRLA. ABSENT: scleral icterus Ear exam: PRESENT: normal external ear exam Mouth exam: PRESENT: moist, tongue midline Neck exam: PRESENT: full ROM. ABSENT: carotid bruit, JVD, lymphadenopathy, thyromegaly Respiratory exam: PRESENT: clear to auscultation rafia Cardiovascular exam: PRESENT: RRR. ABSENT: diastolic murmur, rubs, systolic murmur Pulses: PRESENT: normal dorsalis pedis pul, +2 pedal pulses bilateral Vascular exam: PRESENT: normal capillary refill GI/Abdominal exam: PRESENT: normal bowel sounds, soft. ABSENT: distended, guarding, mass, organolmegaly, rebound, tenderness Rectal exam: PRESENT: deferred Extremities exam: ABSENT: pedal edema Musculoskeletal exam: PRESENT: ambulatory Neurological exam: PRESENT: alert, awake, oriented to person, oriented to place , oriented to time, oriented to situation, CN II-XII grossly intact. ABSENT: motor sensory deficit Psychiatric exam: PRESENT: appropriate affect, normal mood. ABSENT: homicidal ideation, suicidal ideation Skin exam: PRESENT: dry, intact, warm. ABSENT: cyanosis, rash Results Laboratory Results: 01/01/18 04:27 01/01/18 04:27 01/01/18 01/01/18 04:27 04:27 WBC 10.5 RBC 4.49 Hgb 12.2 L Hct 36.5 L MCV 81 MCH 27.2 MCHC 33.6 RDW 15.7 H Plt Count 243 Seg Neutrophils % 67.5 Lymphocytes % 22.4 Monocytes % 7.2 Eosinophils % 2.5 Basophils % 0.4 Absolute Neutrophils 7.1 Absolute Lymphocytes 2.3 Absolute Monocytes 0.8 Absolute Eosinophils 0.3 Absolute Basophils 0.0 Sodium 144.1 Potassium 4.0 Chloride 104 Carbon Dioxide 29 Anion Gap 11 BUN 33 H Creatinine 0.81 Est GFR ( Amer) > 60 Est GFR (Non-Af Amer) > 60 Glucose 216 H Calcium 9.1 12/26/17 12:03 Blood Blood Culture - Final NO GROWTH IN 5 DAYS 12/26/17 10:17 Blood Blood Culture - Final NO GROWTH IN 5 DAYS 12/26/17 12/26/17 12/26/17 10:17 10:17 16:05 Creatine Kinase 56 55 CK-MB (CK-2) 1.15 Troponin I 0.019 NT-Pro-B Natriuret Pep 12/26/17 12/26/17 12/26/17 16:05 22:04 22:04 Creatine Kinase 51 L CK-MB (CK-2) 1.30 1.12 Troponin I 0.019 0.027 NT-Pro-B Natriuret Pep 12/27/17 12/27/17 12/27/17 04:42 07:39 07:39 Creatine Kinase 54 L CK-MB (CK-2) 1.29 Troponin I 0.030 NT-Pro-B Natriuret Pep 2200 H 12/27/17 12/27/17 12/27/17 15:00 15:00 19:12 Creatine Kinase 108 122 CK-MB (CK-2) 1.57 Troponin I 0.026 NT-Pro-B Natriuret Pep 12/27/17 12/28/17 12/29/17 19:12 05:28 08:56 Creatine Kinase CK-MB (CK-2) 1.58 Troponin I 0.029 NT-Pro-B Natriuret Pep 1070 H 694 Impressions: Abdomen/Pelvis CT 12/26/17 00:00 IMPRESSION: 1. SLIGHT HAZY APPEARANCE OF THE MESENTERY, "ANETA MESENTERY" . THIS IS A NONSPECIFIC FINDING AND COULD BE INCIDENTAL BUT COULD BE INDICATIVE OF INFLAMMATORY PROCESS. 2. NO OTHER SIGNIFICANT OR ACUTE FINDING IN THE ABDOMEN OR PELVIS ON CT SCAN WITH IV CONTRAST. Chest/Abdomen CTA 12/26/17 00:00 IMPRESSION: 1. NORMAL CTA OF THE CHEST. NO PULMONARY EMBOLI. 2. MODERATE BILATERAL PLEURAL EFFUSIONS WITH SCATTERED BASILAR ATELECTASIS. Cardiac Imaging Nuclear Medicine 12/28/17 00:00 IMPRESSION: NORMAL CARDIAC MUGA STUDY. NORMAL LEFT VENTRICULAR FUNCTION WITH VALUES ABOVE. Chest Ultrasound 12/28/17 00:00 IMPRESSION: Small bilateral pleural effusions. Head CTA 12/29/17 00:00 IMPRESSION: NO ACUTE INTRACRANIAL IMAGING FINDINGS. NO CTA EVIDENCE OF STENOSIS OR ANEURYSM OF THE [place]. EVIDENCE OF ACUTE STROKE: NO. Head MRI 12/29/17 00:00 IMPRESSION: Chronic ischemic changes. EVIDENCE OF ACUTE STROKE: NO. Chest X-Ray 12/31/17 00:00 IMPRESSION: FAINT BASILAR DENSITIES WITH SMALL BILATERAL PLEURAL EFFUSIONS. NO SIGNIFICANT INTERVAL CHANGE. Assessment & Plan - Diagnosis (1) COPD (chronic obstructive pulmonary disease) with acute bronchitis Is this a current diagnosis for this admission?: Yes Plan: Continues to nebulizer treatment (2) Hypertension Qualifiers: Hypertension type: essential hypertension Qualified Code(s): I10 - Essential (primary) hypertension Is this a current diagnosis for this admission?: Yes Plan: Currently all stable (3) Pneumonia Qualifiers: Pneumonia type: due to unspecified organism Laterality: bilateral Lung location: unspecified part of lung Qualified Code(s): J18.9 - Pneumonia, unspecified organism Is this a current diagnosis for this admission?: Yes Plan: Switch to p.o. antibiotic (4) Shortness of breath Is this a current diagnosis for this admission?: Yes Plan: Patient is currently using the BiPAP at night works much better compared to the CPAP will follow with the pulmonary probably need to readjust his CPAP (5) Abdominal distension Is this a current diagnosis for this admission?: Yes Plan: Currently all better (6) Sleep apnea Qualifiers: Sleep apnea type: unspecified type Qualified Code(s): G47.30 - Sleep apnea , unspecified Is this a current diagnosis for this admission?: Yes Plan: Follow with Dr. Allen (7) Pleural effusion Is this a current diagnosis for this admission?: Yes Plan: Clear all stable (8) Headache Qualifiers: Headache type: unspecified Intractability: intractable Is this a current diagnosis for this admission?: Yes Plan: Currently all resolved (9) Nausea Is this a current diagnosis for this admission?: Yes - Time Time Spent with patient: 15-24 minutes Medications reviewed and adjusted accordingly: Yes Anticipated discharge: Home Within: within 24 hours - Inpatient Certification Based on my medical assessment, after consideration of the patient's comorbidities, presenting symptoms, or acuity I expect that the services needed warrant INPATIENT care.: Yes I certify that my determination is in accordance with my understanding of Medicare's requirements for reasonable and necessary INPATIENT services [42 CFR 412.3e].: Yes Medical Necessity: Significant Comorbidiites Make Outpatient Treatment Too Risky Post Hospital Care: D/C Lcac Operator Documentation - Plan Summary Plan Summary: Continues to current medications
--- NOTE | 2018-01-01 14:36 | Pulmonary Function Test ---
Pulmonary Function Test Date of Procedure:: 12/29/17 INDICATION:: Dyspnea Referring Provider: Dr. Fortune - Report Spirometry: FVC 1.24 L 30 % postbronchodilator 1.29 L 35% FEV1 0.99 L 34% postbronchodilator 0.92 L 31% FEV1/FVC % 80 postbronchodilator 71 predicted 80 FEF 25-75% 1.15 L 39% postbronchodilator 1.06 L 36% Impression: Severe obstructive ventilatory defect. Insignificant response to bronchodilator therapy. This in and of itself does not preclude a clinical trial of bronchodilator therapy. Restrictive defect is implied but cannot be diagnosed on the basis of spirometry alone. (Restrictive defect may mask the degree of obstruction)
[2018-01-02] MEDS: IPRATROPIUM/ALBUTEROL 0.5-2.5 MG/3 ML AMPUL NEB SCH ×6 (00:19→20:27)
[2018-01-02] MEDS: CLONIDINE HCL 0.1 MG TABLET PO SCH ×3 (05:09→21:20)
[2018-01-02 05:36] LABS: ANION GAP 9 (5-19); BLOOD UREA NITROGEN 27 mg/dL (7-20); CALCIUM 8.8 mg/dL (8.4-10.2); CARBON DIOXIDE 33 mmol/L (22-30); CHLORIDE 102 mmol/L (98-107); GLUCOSE 129 mg/dL (75-110); POTASSIUM 4.5 mmol/L (3.6-5.0); SODIUM 143.9 mmol/L (137-145)
[2018-01-02] MEDS: LANSOPRAZOLE 30 MG TAB.RAP.DR PO SCH ×2 (08:26→17:04)
[2018-01-02] MEDS: AMLODIPINE BESYLATE 5 MG TABLET PO SCH ×2 (09:44→21:21)
[2018-01-02] MEDS: GUAIFENESIN 600 MG TABLET.SA PO SCH ×2 (09:44→21:20)
[2018-01-02] MEDS: FAMOTIDINE 20 MG TABLET PO SCH (09:44)
[2018-01-02] MEDS: HUM INSULIN NPH/REG INSULIN HM 100 UNIT/1 ML 3 ML SUBCUT SCH ×2 (09:45→21:23)
[2018-01-02] MEDS: CEFUROXIME 500 MG TABLET PO SCH ×2 (09:45→21:20)
[2018-01-02] MEDS: METOPROLOL TARTRATE 25 MG TABLET PO SCH ×2 (09:45→21:19)
[2018-01-02] MEDS: DOCUSATE SODIUM 100 MG CAPSULE PO SCH ×2 (09:45→17:04)
[2018-01-02] MEDS: ENOXAPARIN SODIUM INJ 40 MG/0.4 ML DISP.SYRIN SUBCUT SCH (09:45)
[2018-01-02] MEDS: ASPIRIN 81 MG TABLET, ENT COATED PO SCH (09:45)
[2018-01-02] MEDS: LOSARTAN POTASSIUM 50 MG TABLET PO SCH ×2 (09:45→21:21)
[2018-01-02] MEDS: BUSPIRONE HCL 10 MG TABLET PO SCH ×2 (09:45→21:20)
[2018-01-02] MEDS: FUROSEMIDE 20 MG TABLET PO SCH ×2 (09:46→17:04)
[2018-01-02] MEDS: POLYETHYLENE GLYCOL 3350 POWDER 17 GM/1 PACKET PO SCH (09:50)
--- NOTE | 2018-01-02 12:26 | PDOC PROGRESS REPORT ---
Subjective Progress Note for:: 01/02/18 Subjective:: And is currently doing much better Patient's Mariano catheter out Patient's p.o. intake is good Patient's denied any chest pain denied any shortness of the breath No headache Reason For Visit: PNEUMONIA Physical Exam Vital Signs: Temp Pulse Resp BP Pulse Ox 98.1 F 74 18 156/67 H 94 01/02/18 08:09 01/02/18 08:09 01/02/18 08:09 01/02/18 08:09 01/02/18 08:09 Pulse Oximeter Nocturnal Start: 12/28/17 11: 19 Freq: RTQ4 Status: Complete Document 12/29/17 04:00 LRO (Rec: 12/29/17 05:28 LRO [id number]) Nocturnal Pulse Oximetry Equipment Usage Equipment in Use Oxygen Delivery Method (includes room Bi-pap air) O2 Sat by Pulse Oximetry (92-100) 98 Continuous SpO2 Machine # 11 Intake & Output 01/01/18 01/02/18 01/03/18 06:59 06:59 06:59 Intake Total 1950 1955 Output Total 600 775 Balance 1350 1180 Weight 136.9 kg 137.1 kg General appearance: PRESENT: no acute distress, well-developed, well-nourished Head exam: PRESENT: atraumatic, normocephalic Eye exam: PRESENT: conjunctiva pink, EOMI, PERRLA. ABSENT: scleral icterus Ear exam: PRESENT: normal external ear exam Mouth exam: PRESENT: moist, tongue midline Neck exam: PRESENT: full ROM. ABSENT: carotid bruit, JVD, lymphadenopathy, thyromegaly Respiratory exam: PRESENT: clear to auscultation rafia Cardiovascular exam: PRESENT: RRR. ABSENT: diastolic murmur, rubs, systolic murmur Pulses: PRESENT: normal dorsalis pedis pul, +2 pedal pulses bilateral Vascular exam: PRESENT: normal capillary refill GI/Abdominal exam: PRESENT: normal bowel sounds, soft. ABSENT: distended, guarding, mass, organolmegaly, rebound, tenderness Rectal exam: PRESENT: deferred Extremities exam: ABSENT: pedal edema Musculoskeletal exam: PRESENT: ambulatory Neurological exam: PRESENT: alert, awake, oriented to person, oriented to place , oriented to time, oriented to situation, CN II-XII grossly intact. ABSENT: motor sensory deficit Psychiatric exam: PRESENT: appropriate affect, normal mood. ABSENT: homicidal ideation, suicidal ideation Skin exam: PRESENT: dry, intact, warm. ABSENT: cyanosis, rash Results Laboratory Results: 01/01/18 04:27 01/02/18 04:26 01/02/18 04:26 Sodium 143.9 Potassium 4.5 Chloride 102 Carbon Dioxide 33 H Anion Gap 9 BUN 27 H Creatinine 0.74 Est GFR ( Amer) > 60 Est GFR (Non-Af Amer) > 60 Glucose 129 H Calcium 8.8 12/26/17 12/26/17 12/26/17 10:17 10:17 16:05 Creatine Kinase 56 55 CK-MB (CK-2) 1.15 Troponin I 0.019 NT-Pro-B Natriuret Pep 12/26/17 12/26/17 12/26/17 16:05 22:04 22:04 Creatine Kinase 51 L CK-MB (CK-2) 1.30 1.12 Troponin I 0.019 0.027 NT-Pro-B Natriuret Pep 12/27/17 12/27/17 12/27/17 04:42 07:39 07:39 Creatine Kinase 54 L CK-MB (CK-2) 1.29 Troponin I 0.030 NT-Pro-B Natriuret Pep 2200 H 12/27/17 12/27/17 12/27/17 15:00 15:00 19:12 Creatine Kinase 108 122 CK-MB (CK-2) 1.57 Troponin I 0.026 NT-Pro-B Natriuret Pep 12/27/17 12/28/17 12/29/17 19:12 05:28 08:56 Creatine Kinase CK-MB (CK-2) 1.58 Troponin I 0.029 NT-Pro-B Natriuret Pep 1070 H 694 Impressions: Abdomen/Pelvis CT 12/26/17 00:00 IMPRESSION: 1. SLIGHT HAZY APPEARANCE OF THE MESENTERY, "ANETA MESENTERY" . THIS IS A NONSPECIFIC FINDING AND COULD BE INCIDENTAL BUT COULD BE INDICATIVE OF INFLAMMATORY PROCESS. 2. NO OTHER SIGNIFICANT OR ACUTE FINDING IN THE ABDOMEN OR PELVIS ON CT SCAN WITH IV CONTRAST. Chest/Abdomen CTA 12/26/17 00:00 IMPRESSION: 1. NORMAL CTA OF THE CHEST. NO PULMONARY EMBOLI. 2. MODERATE BILATERAL PLEURAL EFFUSIONS WITH SCATTERED BASILAR ATELECTASIS. Cardiac Imaging Nuclear Medicine 12/28/17 00:00 IMPRESSION: NORMAL CARDIAC MUGA STUDY. NORMAL LEFT VENTRICULAR FUNCTION WITH VALUES ABOVE. Chest Ultrasound 12/28/17 00:00 IMPRESSION: Small bilateral pleural effusions. Head CTA 12/29/17 00:00 IMPRESSION: NO ACUTE INTRACRANIAL IMAGING FINDINGS. NO CTA EVIDENCE OF STENOSIS OR ANEURYSM OF THE [place] OF [place]. EVIDENCE OF ACUTE STROKE: NO. Head MRI 12/29/17 00:00 IMPRESSION: Chronic ischemic changes. EVIDENCE OF ACUTE STROKE: NO. Chest X-Ray 12/31/17 00:00 IMPRESSION: FAINT BASILAR DENSITIES WITH SMALL BILATERAL PLEURAL EFFUSIONS. NO SIGNIFICANT INTERVAL CHANGE. Assessment & Plan - Diagnosis (1) COPD (chronic obstructive pulmonary disease) with acute bronchitis Is this a current diagnosis for this admission?: Yes Plan: Continues to nebulizer treatment (2) Hypertension Qualifiers: Hypertension type: essential hypertension Qualified Code(s): I10 - Essential (primary) hypertension Is this a current diagnosis for this admission?: Yes Plan: Currently all stable (3) Pneumonia Qualifiers: Pneumonia type: due to unspecified organism Laterality: bilateral Lung location: unspecified part of lung Qualified Code(s): J18.9 - Pneumonia, unspecified organism Is this a current diagnosis for this admission?: Yes Plan: Switch to p.o. antibiotic (4) Shortness of breath Is this a current diagnosis for this admission?: Yes Plan: Patient is currently using the BiPAP at night works much better compared to the CPAP will follow with the pulmonary probably need to readjust his CPAP (5) Abdominal distension Is this a current diagnosis for this admission?: Yes Plan: Currently all better (6) Sleep apnea Qualifiers: Sleep apnea type: unspecified type Qualified Code(s): G47.30 - Sleep apnea , unspecified Is this a current diagnosis for this admission?: Yes Plan: Follow with Dr. Allen (7) Pleural effusion Is this a current diagnosis for this admission?: Yes Plan: Clear all stable (8) Headache Qualifiers: Headache type: unspecified Intractability: intractable Is this a current diagnosis for this admission?: Yes Plan: Currently all resolved (9) Nausea Is this a current diagnosis for this admission?: Yes - Time Time Spent with patient: 15-24 minutes Medications reviewed and adjusted accordingly: Yes Anticipated discharge: Home Within: within 24 hours - Inpatient Certification Based on my medical assessment, after consideration of the patient's comorbidities, presenting symptoms, or acuity I expect that the services needed warrant INPATIENT care.: Yes I certify that my determination is in accordance with my understanding of Medicare's requirements for reasonable and necessary INPATIENT services [42 CFR 412.3e].: Yes 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
[2018-01-02] MEDS ORDERED: FUROSEMIDE INJ/PF 40 MG/4 ML SDV ONE (13:44)
--- NOTE | 2018-01-02 15:46 | RADIOLOGY REPORT (SQ) ---
EXAM DESCRIPTION: NM RENAL SCAN COMPLETED DATE/TIME: 01/02/2018 3:34 pm REASON FOR STUDY: Renal clearance COMPARISON: None. RADIONUCLIDE AND DOSE: 5.2 millicuries Tc-99m MAG 3 The route of agent administration: Intravenous ADDITIONAL DRUGS AND DOSES: Lasix 20 mg. TECHNIQUE: Following administration of the radionuclide, flow images of the kidneys were acquired fo llowed by sequential imaging for 30 minutes. Intravenous Lasix was given at the midpoint of the study . Time activity curves were generated. LIMITATIONS: None. FINDINGS: ACTIVITY LEFT KIDNEY: 40 %. ACTIVITY RIGHT KIDNEY: 60 %. There is prompt uptake of activity in the kidneys bilaterally simultaneous with passage of the aortic bolus. There is normal excretion with progression of activity from the renal cortex into the collec ting system and subsequently into the ureters. Time activity curves demonstrate normal excretory pat tern with no abnormal retention. No obstructive changes. IMPRESSION: NORMAL LASIX RENOGRAM. TECHNICAL DOCUMENTATION: JOB ID: [id number] [employer]- All Rights Reserved Reading location - IP/workstation name: [email or web address]
[2018-01-02] MEDS: INSULIN LISPRO 100 UNIT/ML 3 ML VIAL SUBCUT PRN (17:04)
[2018-01-03] MEDS ORDERED: CLONIDINE HCL 0.1 MG TABLET PO ONE (00:15)
[2018-01-03] MEDS: IPRATROPIUM/ALBUTEROL 0.5-2.5 MG/3 ML AMPUL NEB SCH ×3 (00:23→07:37)
[2018-01-03] MEDS: CLONIDINE HCL 0.1 MG TABLET PO SCH (05:17)
[2018-01-03 05:32] LABS: ANION GAP 10 (5-19); BLOOD UREA NITROGEN 26 mg/dL (7-20); CARBON DIOXIDE 35 mmol/L (22-30); CHLORIDE 98 mmol/L (98-107); GLUCOSE 191 mg/dL (75-110); POTASSIUM 4.5 mmol/L (3.6-5.0); SODIUM 143.3 mmol/L (137-145)
[2018-01-03 08:00] VITALS: BP 152/67
[2018-01-03] MEDS: DOCUSATE SODIUM 100 MG CAPSULE PO SCH (09:05)
[2018-01-03] MEDS: ASPIRIN 81 MG TABLET, ENT COATED PO SCH (09:05)
[2018-01-03] MEDS: LANSOPRAZOLE 30 MG TAB.RAP.DR PO SCH (09:06)
[2018-01-03] MEDS: INSULIN LISPRO 100 UNIT/ML 3 ML VIAL SUBCUT PRN (09:06)
[2018-01-03] MEDS: LOSARTAN POTASSIUM 50 MG TABLET PO SCH (09:06)
[2018-01-03] MEDS: FUROSEMIDE 20 MG TABLET PO SCH (09:06)
[2018-01-03] MEDS: METOPROLOL TARTRATE 25 MG TABLET PO SCH (09:06)
[2018-01-03] MEDS: GUAIFENESIN 600 MG TABLET.SA PO SCH (09:06)
[2018-01-03] MEDS: BUSPIRONE HCL 10 MG TABLET PO SCH (09:06)
[2018-01-03] MEDS: AMLODIPINE BESYLATE 5 MG TABLET PO SCH (09:06)
[2018-01-03] MEDS: ENOXAPARIN SODIUM INJ 40 MG/0.4 ML DISP.SYRIN SUBCUT SCH (09:07)
[2018-01-03] MEDS: POLYETHYLENE GLYCOL 3350 POWDER 17 GM/1 PACKET PO SCH (09:07)
[2018-01-03] MEDS: HUM INSULIN NPH/REG INSULIN HM 100 UNIT/1 ML 3 ML SUBCUT SCH (09:07)
[2018-01-03] MEDS: CEFUROXIME 500 MG TABLET PO SCH (09:18)
--- NOTE | 2018-01-03 12:18 | PDOC DISCHARGE SUMMARY ---
General - Admit/Disc Date/PCP Admission Date/Primary Care Provider: 12/26/17 06:32 ANANDA FERNANDEZ MD Discharge Date: 01/03/18 - Discharge Diagnosis (1) COPD (chronic obstructive pulmonary disease) with acute bronchitis Is this a current diagnosis for this admission?: Yes Summary: Currently all stable (2) Hypertension Is this a current diagnosis for this admission?: Yes Summary: Patient's currently all stable have appointment to see her Dr. Moe Sanchez in 1 week to further evaluate with some uncontrolled issues (3) Pneumonia Is this a current diagnosis for this admission?: Yes Summary: Currently all resolving continues to p.o. antibiotic (4) Shortness of breath Is this a current diagnosis for this admission?: Yes Summary: Currently all resolved (5) Abdominal distension Is this a current diagnosis for this admission?: Yes Summary: Currently all resolved (6) Sleep apnea Is this a current diagnosis for this admission?: Yes Summary: Patient currently giving the BiPAP at home follow with the Dr. Allen (7) Pleural effusion Is this a current diagnosis for this admission?: Yes Summary: Currently all resolved (8) Headache Is this a current diagnosis for this admission?: Yes Summary: Currently all resolved (9) Nausea Is this a current diagnosis for this admission?: Yes - Additional Information Resuscitation Status: Full Code Discharge Diet: Diabetic Discharge Activity: Activity As Tolerated Prescriptions: Amlodipine Besylate [Norvasc 5 mg Tablet] 5 mg PO Q12 #60 tablet Buspirone HCl [Buspar 10 mg Tablet] 10 mg PO Q12 #60 tablet Cefuroxime Axetil [Ceftin 500 mg Tablet] 500 mg PO Q12 #14 tablet Clonidine HCl [Catapres 0.1 mg Tablet] 0.1 mg PO Q8 #120 tablet Furosemide [Lasix 20 mg Tablet] 20 mg PO DAILY #30 tablet Metoprolol Tartrate [Lopressor 25 mg Tablet] 12.5 mg PO Q12 #60 tablet Sitagliptin Phosphate [Januvia] 100 mg PO DAILY #30 tablet Home Medications: Aspirin [Aspirin EC] 81 mg PO DAILY 12/26/17 Hum Insulin NPH/Reg Insulin Hm [Insulin 70-30 (NPH/Reg) 100 unit/mL] 20 unit SUBCUT Q12 12/26/17 Ipratropium/Albuterol Sulfate [Duoneb 3 ml Ampul] 3 ml NEB RTQIDP PRN 12/26/17 Metformin HCl [Glucophage] 1,000 mg PO BID 12/26/17 Omeprazole 40 mg PO QPM 12/26/17 Amlodipine Besylate [Norvasc 5 mg Tablet] 5 mg PO Q12 #60 tablet 01/03/18 Buspirone HCl [Buspar 10 mg Tablet] 10 mg PO Q12 #60 tablet 01/03/18 Cefuroxime Axetil [Ceftin 500 mg Tablet] 500 mg PO Q12 #14 tablet 01/03/18 Clonidine HCl [Catapres 0.1 mg Tablet] 0.1 mg PO Q8 #120 tablet 01/03/18 Furosemide [Lasix 20 mg Tablet] 20 mg PO DAILY #30 tablet 01/03/18 Losartan Potassium [Cozaar 50 mg Tablet] 50 mg PO BID #60 01/03/18 Metoprolol Tartrate [Lopressor 25 mg Tablet] 12.5 mg PO Q12 #60 tablet 01/03/18 Sitagliptin Phosphate [Januvia] 100 mg PO DAILY #30 tablet 01/03/18 History of Present Illness History of Present Illness: AMAURY LAW is a 67 year old male this is 67 male with type 2 dm/htn/copd and chronic back pain came to er via ems due to sob and fever and chills and p was mild respirtory distress and place on 02 and neb x pt also recived iv soulmedrol pt also c/o leg swelling and abd distesnsion according to pt also have fever and chills since yeterday but pt denied any cough pt also seen by cardilogy 2 yr back and all stable pt nt bnp was elevated in er when i saw pt on floor feel better no chest pain pt admitted for copd/pnemonia and r/o chf Hospital Course Hospital Course: This is a 67-year-old male admitting in the hospital for the shortness of the breath leg swelling and patient initial workup and was CT angiogram was all negative for any PE patients diagnosed with the pleural effusion and pneumonia treated with the IV antibiotic Patients also have concern about right-sided heart failure seen by Dr. Kaye put on IV Lasix initially underwent for the echocardiogram and a MUGA scan was all stable Patient also seen by the Dr. Allen and suggest the patient need a BiPAP will initially patient was shortness of the breath but wants to put the patient on BiPAP patient shortness of the breath is all resolved Patient also seen by Dr. Rodgers and underwent for the endoscopy which is nothing acute findings and CT scan of the abdomen and pelvis there was some mild inflammation's but no other acute findings Headache most likely due to the hydralazineAnd patient underwent for the CT angiogram of the head and CT of the head and MRI of the head was all negativ Patient's headache is pretty much resolved with the steroid and the patient's currently doing well patient's chest x-ray is all clear and pleural effusion is all resolved patients remain afebrile switch to the IV to the p.o. antibiotic Patient also have a proteinuria and the patient's blood pressure medications are adjusted and the patient at this point wants to go home feel much better Patients follow outpatients nephrology outpatients cardiology and outpatients pulmonary Patient's otherwise all blood work is stable very extensive discussed with the patient and the regarding the patient's current conditions patients walk in the hallway without any problems p.o. intake is good patient is afebrile denied any complaints discharged home with a stable conditions Physical Exam Vital Signs: Temp Pulse Resp BP Pulse Ox 98.3 F 65 16 152/67 H 99 01/03/18 07:43 01/03/18 07:43 01/03/18 07:43 01/03/18 07:40 01/03/18 07:43 Pulse Oximeter Nocturnal Start: 12/28/17 11: 19 Freq: RTQ4 Status: Complete Document 12/29/17 04:00 LRO (Rec: 12/29/17 05:28 LRO [id number]) Nocturnal Pulse Oximetry Equipment Usage Equipment in Use Oxygen Delivery Method (includes room Bi-pap air) O2 Sat by Pulse Oximetry (92-100) 98 Continuous SpO2 Machine # 11 Intake & Output 01/02/18 01/03/18 01/04/18 06:59 06:59 06:59 Intake Total 1957 958 Output Total 775 175 Balance 1180 783 Weight 137.1 kg 133.8 kg General appearance: PRESENT: no acute distress, well-developed, well-nourished Head exam: PRESENT: atraumatic, normocephalic Eye exam: PRESENT: conjunctiva pink, EOMI, PERRLA. ABSENT: scleral icterus Ear exam: PRESENT: normal external ear exam Mouth exam: PRESENT: moist, tongue midline Neck exam: PRESENT: full ROM. ABSENT: carotid bruit, JVD, lymphadenopathy, thyromegaly Respiratory exam: PRESENT: clear to auscultation rafia Cardiovascular exam: PRESENT: RRR. ABSENT: diastolic murmur, rubs, systolic murmur Pulses: PRESENT: normal dorsalis pedis pul, +2 pedal pulses bilateral Vascular exam: PRESENT: normal capillary refill GI/Abdominal exam: PRESENT: normal bowel sounds, soft. ABSENT: distended, guarding, mass, organolmegaly, rebound, tenderness Rectal exam: PRESENT: deferred Extremities exam: ABSENT: pedal edema Musculoskeletal exam: PRESENT: ambulatory Neurological exam: PRESENT: alert, awake, oriented to person, oriented to place , oriented to time, oriented to situation, CN II-XII grossly intact. ABSENT: motor sensory deficit Psychiatric exam: PRESENT: appropriate affect, normal mood. ABSENT: homicidal ideation, suicidal ideation Skin exam: PRESENT: dry, intact, warm. ABSENT: cyanosis, rash Results Laboratory Results: 01/01/18 04:27 01/03/18 04:27 01/03/18 04:27 Sodium 143.3 Potassium 4.5 Chloride 98 Carbon Dioxide 35 H Anion Gap 10 BUN 26 H Creatinine 0.89 Est GFR ( Amer) > 60 Est GFR (Non-Af Amer) > 60 Glucose 191 H Calcium 9.0 12/26/17 12/26/17 12/26/17 10:17 10:17 16:05 Creatine Kinase 56 55 CK-MB (CK-2) 1.15 Troponin I 0.019 NT-Pro-B Natriuret Pep 12/26/17 12/26/17 12/26/17 16:05 22:04 22:04 Creatine Kinase 51 L CK-MB (CK-2) 1.30 1.12 Troponin I 0.019 0.027 NT-Pro-B Natriuret Pep 12/27/17 12/27/17 12/27/17 04:42 07:39 07:39 Creatine Kinase 54 L CK-MB (CK-2) 1.29 Troponin I 0.030 NT-Pro-B Natriuret Pep 2200 H 12/27/17 12/27/17 12/27/17 15:00 15:00 19:12 Creatine Kinase 108 122 CK-MB (CK-2) 1.57 Troponin I 0.026 NT-Pro-B Natriuret Pep 12/27/17 12/28/17 12/29/17 19:12 05:28 08:56 Creatine Kinase CK-MB (CK-2) 1.58 Troponin I 0.029 NT-Pro-B Natriuret Pep 1070 H 694 Impressions: Abdomen/Pelvis CT 12/26/17 00:00 IMPRESSION: 1. SLIGHT HAZY APPEARANCE OF THE MESENTERY, "ANETA MESENTERY" . THIS IS A NONSPECIFIC FINDING AND COULD BE INCIDENTAL BUT COULD BE INDICATIVE OF INFLAMMATORY PROCESS. 2. NO OTHER SIGNIFICANT OR ACUTE FINDING IN THE ABDOMEN OR PELVIS ON CT SCAN WITH IV CONTRAST. Chest/Abdomen CTA 12/26/17 00:00 IMPRESSION: 1. NORMAL CTA OF THE CHEST. NO PULMONARY EMBOLI. 2. MODERATE BILATERAL PLEURAL EFFUSIONS WITH SCATTERED BASILAR ATELECTASIS. Cardiac Imaging Nuclear Medicine 12/28/17 00:00 IMPRESSION: NORMAL CARDIAC MUGA STUDY. NORMAL LEFT VENTRICULAR FUNCTION WITH VALUES ABOVE. Chest Ultrasound 12/28/17 00:00 IMPRESSION: Small bilateral pleural effusions. Head CTA 12/29/17 00:00 IMPRESSION: NO ACUTE INTRACRANIAL IMAGING FINDINGS. NO CTA EVIDENCE OF STENOSIS OR ANEURYSM OF THE [place] OF [place]. EVIDENCE OF ACUTE STROKE: NO. Head MRI 12/29/17 00:00 IMPRESSION: Chronic ischemic changes. EVIDENCE OF ACUTE STROKE: NO. Chest X-Ray 12/31/17 00:00 IMPRESSION: FAINT BASILAR DENSITIES WITH SMALL BILATERAL PLEURAL EFFUSIONS. NO SIGNIFICANT INTERVAL CHANGE. Renal Scan Nuclear Medicine 01/02/18 00:00 IMPRESSION: NORMAL LASIX RENOGRAM. Qualifiers - * PATIENT BEING DISCHARGED WITH ANY OF THE FOLLOWING DIAGNOSIS: No VTE patient discharged on overlapping Therapy?: Yes Plan Time Spent: Greater than 30 Minutes - Patients follow outpatients pulmonary cardiology and nephrology Follow in my office 1 week repeat the CBC Chem-7 and a chest x-ray Also arrange the home health Discussed with the patient and the any increasing any shortness of the breath any chest pain following the ER
--- NOTE | 2018-01-03 13:21 | EKG REPORT ---
SEVERITY:- OTHERWISE NORMAL ECG - SINUS RHYTHM BASELINE DRIFT : Confirmed by: Steven Mir MD 03-Jan-2018 13:20:44
== END 2018-01-03 10:50 | disposition home or self-care (01) | DRG 190 ==
LOC: ER 04:03 → EH 06:32 → 3W 07:37
PROVIDERS: ADMIT Family Medicine; ATTEND Family Medicine
PROC: 5A09557 Assistance with Respiratory Ventilation, Greater than 96 Consecutive Hours, Continuous Positive Airway Pressure (ICD-10-PCS; principal; 2017-12-26)
PROC: 3E0F73Z Introduction of Anti-inflammatory into Respiratory Tract, Via Natural or Artificial Opening (ICD-10-PCS; 2017-12-26)
PROC: 0DB68ZX Excision of Stomach, Via Natural or Artificial Opening Endoscopic, Diagnostic (ICD-10-PCS; 2017-12-28)
DX: J44.0 Chronic obstructive pulmonary disease with (acute) lower respiratory infection (principal); J18.9 Pneumonia, unspecified organism; E66.2 Morbid (severe) obesity with alveolar hypoventilation; Z68.41 Body mass index [BMI] 40.0-44.9, adult; J44.1 Chronic obstructive pulmonary disease with (acute) exacerbation; J20.9 Acute bronchitis, unspecified; K21.9 Gastro-esophageal reflux disease without esophagitis; E11.9 Type 2 diabetes mellitus without complications; G89.29 Other chronic pain; M54.9 Dorsalgia, unspecified; E66.01 Morbid (severe) obesity due to excess calories; I45.81 Long QT syndrome; K29.70 Gastritis, unspecified, without bleeding; R51 Headache; R07.89 Other chest pain; I10 Essential (primary) hypertension; Z79.899 Other long term (current) drug therapy; Z87.891 Personal history of nicotine dependence; Z82.49 Family history of ischemic heart disease and other diseases of the circulatory system; Z79.82 Long term (current) use of aspirin
CPT/HCPCS: 36415; 36600; 43239; 70496; 70551; 71045; 71046; 71275; 74177; 76604; 78496; 78707; 80048; 80053; 80061; 81001; 82550; 82553; 82803; 82962; 83880; 84156; 84439; 84443; 84481; 84484; 85025; 85610; 85652; 85730; 87040; 87086; 87804; 88305; 93005; 93010; 93306; 94010; 94640; 94660; 94762; 96365; 96366; 99285; A9538; A9562; G8978-GP; G8979-GP; G8996-GN; G8997-GN; G8998-GN; J0171; J0360; J0692; J0696; J1100; J1610; J1650; J1815; J1885; J1940; J2250; J2270; J2310; J2405; J3010; J3475; J3490; J7060; J7512; J7620; Q9969; S0164

== ENCOUNTER → 2018-01-16 | Outpatient (CLI) | payer MEDICARE ==
[2018-01-16 16:23] LABS: HEMATOCRIT 37.1 % (37.9-51.0); HEMOGLOBIN 12.6 g/dL (13.5-17.0); MEAN CORPUSCULAR VOLUME 80 fl (80-97); PLATELET COUNT 217 10^3/uL (150-450); RED BLOOD COUNT 4.66 10^6/uL (4.35-5.55); RED CELL DISTRIBUTION WIDTH 15.7 % (11.5-14.0); WHITE BLOOD COUNT 6.6 10^3/uL (4.0-10.5)
[2018-01-16 16:26] LABS: APPEARANCE,URINE SLIGHTLY-CLOUDY; BILIRUBIN,URINE NEGATIVE (NEGATIVE); COLOR,URINE YELLOW; GLUCOSE, URINE 50 mg/dL (NEGATIVE); KETONES,URINE NEGATIVE (NEGATIVE); LEUKOCYTE ESTERASE,URINE NEGATIVE (NEGATIVE); NITRITE,URINE NEGATIVE (NEGATIVE); PROTEIN,URINE >=500 mg/dL (NEGATIVE)
[2018-01-16 16:42] LABS: ANION GAP 9 (5-19); BLOOD UREA NITROGEN 24 mg/dL (7-20); CALCIUM 9.2 mg/dL (8.4-10.2); CARBON DIOXIDE 33 mmol/L (22-30); CHLORIDE 99 mmol/L (98-107); GLUCOSE 151 mg/dL (75-110); POTASSIUM 3.9 mmol/L (3.6-5.0); SODIUM 140.8 mmol/L (137-145)
== END ==
LOC: OD 15:13
PROVIDERS: ATTEND Internal Medicine Nephrology
DX: I10 Essential (primary) hypertension (principal); N17.9 Acute kidney failure, unspecified
CPT/HCPCS: 36415; 80048; 81001; 85027

== ENCOUNTER 2018-03-23 19:07 | Emergency (ER) | payer MEDICARE ==
[2018-03-23] MEDS ORDERED: ASPIRIN 81 MG TABLET, CHEWABLE PO ONE (22:04)
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
--- NOTE | 2018-03-23 22:31 | RADIOLOGY REPORT (SQ) ---
EXAM DESCRIPTION: XR CHEST 1 VIEW COMPLETED DATE/TME: 03/23/2018 22:04 CLINICAL HISTORY: 67 years, Male, chest pain COMPARISON: 12/31/2017 chest NUMBER OF VIEWS: 1 TECHNIQUE: Portable chest LIMITATIONS: None. FINDINGS: Heart size is normal. Minor scarring left lung base. Lungs are otherwise clear. No pneumothorax IMPRESSION: No acute cardiopulmonary process copyright 2010 [employer]- All Rights Reserved
[2018-03-23 22:45] LABS: ABSOLUTE BASOPHILS # (AUTO) 0.1 10^3/uL (0.0-0.2); ABSOLUTE EOSINOPHILS # (AUTO) 0.1 10^3/uL (0.0-0.6); ABSOLUTE MONOCYTES (AUTO) 0.6 10^3/uL (0.1-1.4); ABSOLUTE NEUT (AUTO) 6.3 10^3/uL (1.7-8.2); BASOPHILS % (AUTO) 0.6 % (0-2); HEMATOCRIT 41.6 % (37.9-51.0); HEMOGLOBIN 13.7 g/dL (13.5-17.0); LYMPHOCYTES % (AUTO) 22.3 % (13-45); MEAN CORPUSCULAR VOLUME 79 fl (80-97); MONOCYTES % (AUTO) 6.3 % (3-13); PLATELET COUNT 246 10^3/uL (150-450); RED BLOOD COUNT 5.28 10^6/uL (4.35-5.55); RED CELL DISTRIBUTION WIDTH 16.4 % (11.5-14.0); SEGMENTED NEUTROPHILS % (AUTO) 69.8 % (42-78); TOTAL CELLS COUNTED % (AUTO) 100 %
--- NOTE | 2018-03-23 22:52 | EKG REPORT ---
SEVERITY:- ABNORMAL ECG - SINUS RHYTHM VENTRICULAR BIGEMINY LAD, CONSIDER LEFT ANTERIOR FASCICULAR BLOCK : Confirmed by: Randi Kaye MD 23-Mar-2018 22:52:24
[2018-03-23 23:13] LABS: ALANINE AMINOTRANSFERASE 29 U/L (21-72); ALBUMIN 3.8 g/dL (3.5-5.0); ALKALINE PHOSPHATASE 59 U/L (38-126); ANION GAP 5 (5-19); ASPARTATE AMINO TRANSFERASE 15 U/L (17-59); BILIRUBIN,DIRECT 0.1 mg/dL (0.0-0.4); BILIRUBIN,TOTAL 0.3 mg/dL (0.2-1.3); BLOOD UREA NITROGEN 28 mg/dL (7-20); CALCIUM 9.8 mg/dL (8.4-10.2); CARBON DIOXIDE 36 mmol/L (22-30); CHLORIDE 99 mmol/L (98-107); GLUCOSE 65 mg/dL (75-110); LIPASE 37.4 U/L (23-300); POTASSIUM 4.2 mmol/L (3.6-5.0); SODIUM 140.2 mmol/L (137-145); TOTAL PROTEIN 6.4 g/dL (6.3-8.2)
[2018-03-23 23:23] LABS: TROPONIN I 0.027 ng/mL
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
[2018-03-24 03:24] VITALS: BP 166/73
== END 2018-03-24 03:30 | disposition home or self-care (01) ==
LOC: ER 19:07
DX: R07.9 Chest pain, unspecified (principal); R42 Dizziness and giddiness; R60.9 Edema, unspecified; I10 Essential (primary) hypertension; E11.9 Type 2 diabetes mellitus without complications; E66.01 Morbid (severe) obesity due to excess calories
CPT/HCPCS: 93005; 99285; 36415; 83690; 85025; 80053; 84484; 83880; 71045; 93010; A9270

== ENCOUNTER → 2018-03-26 | Outpatient (CLI) | payer MEDICARE ==
[2018-03-26 16:32] LABS: APPEARANCE,URINE CLEAR; BILIRUBIN,URINE NEGATIVE (NEGATIVE); COLOR,URINE YELLOW; GLUCOSE, URINE NEGATIVE (NEGATIVE); KETONES,URINE NEGATIVE (NEGATIVE); LEUKOCYTE ESTERASE,URINE NEGATIVE (NEGATIVE); NITRITE,URINE NEGATIVE (NEGATIVE); PROTEIN,URINE >=500 mg/dL (NEGATIVE); URINE SPECIFIC GRAVITY 1.015
[2018-03-26 16:42] LABS: ANION GAP 9 (5-19); BLOOD UREA NITROGEN 20 mg/dL (7-20); CALCIUM 9.4 mg/dL (8.4-10.2); CARBON DIOXIDE 32 mmol/L (22-30); CHLORIDE 98 mmol/L (98-107); GLUCOSE 142 mg/dL (75-110); POTASSIUM 4.2 mmol/L (3.6-5.0); SODIUM 138.5 mmol/L (137-145)
[2018-03-26 17:00] LABS: UR PRO/CREAT RATIO RESULT 2.9 mg/mg (0.0-0.2)
== END ==
LOC: OD 15:19
PROVIDERS: ATTEND Internal Medicine Nephrology
DX: R80.9 Proteinuria, unspecified (principal); I10 Essential (primary) hypertension; E11.9 Type 2 diabetes mellitus without complications
CPT/HCPCS: 36415; 80048; 81001; 82570; 83735; 84156

== ENCOUNTER → 2018-05-29 | Outpatient (CLI) | payer MEDICARE ==
[2018-05-29 10:46] LABS: HEMATOCRIT 38.8 % (37.9-51.0); HEMOGLOBIN 13.1 g/dL (13.5-17.0); MEAN CORPUSCULAR HEMOGLOBIN 26.7 pg (27.0-33.4); MEAN CORPUSCULAR HGB CONC 33.7 g/dL (32.0-36.0); MEAN CORPUSCULAR VOLUME 79 fl (80-97); PLATELET COUNT 264 10^3/uL (150-450); RED CELL DISTRIBUTION WIDTH 17.3 % (11.5-14.0); WHITE BLOOD COUNT 9.6 10^3/uL (4.0-10.5)
[2018-05-29 10:56] LABS: APPEARANCE,URINE CLEAR; BILIRUBIN,URINE NEGATIVE (NEGATIVE); COLOR,URINE YELLOW; GLUCOSE, URINE NEGATIVE (NEGATIVE); KETONES,URINE NEGATIVE (NEGATIVE); LEUKOCYTE ESTERASE,URINE NEGATIVE (NEGATIVE); NITRITE,URINE NEGATIVE (NEGATIVE); PROTEIN,URINE 100 mg/dL (NEGATIVE); URINE SPECIFIC GRAVITY 1.014; UROBILINOGEN,URINE NEGATIVE mg/dL (<2.0)
[2018-05-29 11:13] LABS: ANION GAP 12 (5-19); BLOOD UREA NITROGEN 21 mg/dL (7-20); CARBON DIOXIDE 29 mmol/L (22-30); CHLORIDE 100 mmol/L (98-107); GLUCOSE 122 mg/dL (75-110); POTASSIUM 4.7 mmol/L (3.6-5.0); SODIUM 140.7 mmol/L (137-145)
[2018-05-29 11:45] LABS: URINE CREATININE 73.6 mg/dL (22-328)
[2018-05-29 11:53] LABS: UR PRO/CREAT RATIO RESULT 3.2 mg/mg (0.0-0.2); URINE PROTEIN 233.2 mg/dL (<12)
== END ==
LOC: OD 09:05
PROVIDERS: ATTEND Internal Medicine Nephrology
DX: R80.9 Proteinuria, unspecified (principal); E83.42 Hypomagnesemia; E11.9 Type 2 diabetes mellitus without complications
CPT/HCPCS: 36415; 80048; 81001; 82570; 83735; 84156; 85027

== ENCOUNTER 2018-07-11 21:22 | Emergency (ER) | payer MEDICARE ==
[2018-07-11 21:43] LABS: ABSOLUTE EOSINOPHILS # (AUTO) 0.2 10^3/uL (0.0-0.6); ABSOLUTE LYMPHOCYTES (AUTO) 1.7 10^3/uL (0.5-4.7); ABSOLUTE MONOCYTES (AUTO) 0.8 10^3/uL (0.1-1.4); ABSOLUTE NEUT (AUTO) 6.2 10^3/uL (1.7-8.2); BASOPHILS % (AUTO) 0.5 % (0-2); EOSINOPHILS % (AUTO) 2.4 % (0-6); HEMATOCRIT 33.9 % (37.9-51.0); HEMOGLOBIN 11.5 g/dL (13.5-17.0); LYMPHOCYTES % (AUTO) 19.1 % (13-45); MEAN CORPUSCULAR HEMOGLOBIN 27.2 pg (27.0-33.4); MEAN CORPUSCULAR HGB CONC 33.9 g/dL (32.0-36.0); MEAN CORPUSCULAR VOLUME 80 fl (80-97); MONOCYTES % (AUTO) 9.1 % (3-13); PLATELET COUNT 233 10^3/uL (150-450); RED BLOOD COUNT 4.22 10^6/uL (4.35-5.55); RED CELL DISTRIBUTION WIDTH 15.9 % (11.5-14.0); SEGMENTED NEUTROPHILS % (AUTO) 68.9 % (42-78); TOTAL CELLS COUNTED % (AUTO) 100 %
[2018-07-11 22:03] LABS: ALANINE AMINOTRANSFERASE 26 U/L (21-72); ALBUMIN 3.5 g/dL (3.5-5.0); ALKALINE PHOSPHATASE 56 U/L (38-126); ANION GAP 10 (5-19); ASPARTATE AMINO TRANSFERASE 16 U/L (17-59); BILIRUBIN,DIRECT 0.2 mg/dL (0.0-0.4); BILIRUBIN,TOTAL 0.3 mg/dL (0.2-1.3); BLOOD UREA NITROGEN 30 mg/dL (7-20); CALCIUM 9.7 mg/dL (8.4-10.2); CARBON DIOXIDE 30 mmol/L (22-30); CHLORIDE 100 mmol/L (98-107); CREATINE KINASE 43 U/L (55-170); GLUCOSE 172 mg/dL (75-110); POTASSIUM 4.5 mmol/L (3.6-5.0); SODIUM 139.5 mmol/L (137-145); TOTAL PROTEIN 6.1 g/dL (6.3-8.2)
[2018-07-11 22:14] LABS: CREATINE KINASE MB 0.56 ng/mL (<4.55); TROPONIN I 0.025 ng/mL
--- NOTE | 2018-07-11 22:27 | RADIOLOGY REPORT (SQ) ---
EXAM DESCRIPTION: XR CHEST 1 VIEW COMPLETED DATE/TME: 07/11/2018 21:24 CLINICAL HISTORY: 67 years, Male, chest pain COMPARISON: 03/23/2018 and 12/31/2017 NUMBER OF VIEWS: Two TECHNIQUE: Two AP views of the chest LIMITATIONS: None. FINDINGS: Cardiomediastinal silhouette is within normal limits. No lung consolidate. No pleural effusion. No pneumothorax. No acute osseous finding. IMPRESSION: No acute chest finding. copyright 2010 [employer]- All Rights Reserved
[2018-07-11] MEDS ORDERED: MORPHINE SULFATE 10 MG/ML INJ IV ONE (23:13)
[2018-07-11] MEDS ORDERED: ONDANSETRON HCL INJ/PF 4 MG/2 ML SDV IV ONE (23:13)
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
[2018-07-12] MEDS ORDERED: MORPHINE SULFATE 10 MG/ML INJ IV ONE (00:20)
[2018-07-12] MEDS ORDERED: NITROGLYCERIN/D5W 50 MG/250 ML RTUINJ IV PRN (01:13)
[2018-07-12] MEDS ORDERED: HEPARIN SODIUM,PORCINE/D5W 25,000 UNIT/250 ML RTUINJ IV PRN (03:30)
[2018-07-12 04:31] LABS: INTERNATIONAL RATION (INR) 0.98; PROTHROMBIN TIME 13.5 SEC (11.4-15.4)
[2018-07-12 04:32] LABS: PARTIAL THROMBOPLASTIN TIME 35.7 SEC (23.5-35.8)
[2018-07-12 06:13] LABS: ANION GAP 5 (5-19); BLOOD UREA NITROGEN 22 mg/dL (7-20); CALCIUM 8.1 mg/dL (8.4-10.2); CARBON DIOXIDE 26 mmol/L (22-30); CHLORIDE 108 mmol/L (98-107); GLUCOSE 139 mg/dL (75-110); POTASSIUM 3.7 mmol/L (3.6-5.0); SODIUM 139.3 mmol/L (137-145)
--- NOTE | 2018-07-12 06:33 | EKG REPORT ---
SEVERITY:- BORDERLINE ECG - SINUS RHYTHM POOR R WAVE PROGRESSION ANTERIOR LEADS : Confirmed by: Steven Mir MD 12-Jul-2018 06:33:05
[2018-07-12] MEDS ORDERED: SPIRONOLACTONE 25 MG TABLET PO SCH (08:13)
[2018-07-12] MEDS ORDERED: FUROSEMIDE 40 MG TABLET PO SCH (08:14)
[2018-07-12] MEDS ORDERED: ATORVASTATIN CALCIUM 20 MG TABLET PO SCH (08:15)
[2018-07-12] MEDS ORDERED: CLOPIDOGREL BISULFATE 75 MG TABLET PO SCH (08:16)
[2018-07-12] MEDS ORDERED: ISOSORBIDE MONONITRATE 30 MG TAB.ER.24H PO SCH (08:22)
[2018-07-12] MEDS: GLIMEPIRIDE 4 MG TABLET PO SCH ×3 (09:01→17:49)
--- NOTE | 2018-07-12 09:10 | ER Document Report ---
Doctor's Note Notes: 07/12/18 09:09 ED rounding Saw patient. He complains of 1/10 chest discomfort. However that is much better than it spent. Reviewed notes troponin looks as if it is trending down. Our physician ordered morning meds. Will place patient on sliding scale for coverage still awaiting bed at [facility].
[2018-07-12] MEDS ORDERED: DEXTROSE 40% GEL 15 GM TUBE PO PRN ×2 (09:12)
[2018-07-12] MEDS ORDERED: DEXTROSE 50%-WATER 25 GM/50 ML DISP.SYRIN IV PRN ×2 (09:12)
[2018-07-12] MEDS ORDERED: GLUCAGON,HUMAN RECOMB 1 MG INJ IM PRN (09:12)
[2018-07-12] MEDS: METFORMIN HCL 500 MG TABLET PO SCH ×2 (09:14→17:50)
[2018-07-12] MEDS: CARVEDILOL 6.25 MG TABLET PO SCH ×2 (09:16→17:50)
[2018-07-12] MEDS: CLONIDINE HCL 0.2 MG TABLET PO SCH ×2 (09:16→14:37)
[2018-07-12] MEDS: IPRATROPIUM/ALBUTEROL 0.5-2.5 MG/3 ML AMPUL NEB SCH ×3 (09:24→17:51)
[2018-07-12] MEDS ORDERED: INSULIN REG, HUMAN 100 UNIT/ML 3 ML VIAL (PYX) ONE (09:37)
[2018-07-12] MEDS ORDERED: AMLODIPINE BESYLATE 5 MG TABLET PO SCH (10:00)
[2018-07-12] MEDS ORDERED: LISINOPRIL 5 MG TABLET PO SCH (10:00)
[2018-07-12] MEDS ORDERED: MAGNESIUM OXIDE 400 MG TABLET PO SCH (10:00)
[2018-07-12] MEDS ORDERED: RANOLAZINE 500 MG TAB.SR.12H PO SCH (10:00)
[2018-07-12] MEDS ORDERED: PANTOPRAZOLE SODIUM 40 MG TABLET.DR PO SCH (10:00)
[2018-07-12] MEDS ORDERED: INSULIN REG, HUMAN 100 UNIT/ML 3 ML VIAL (PYX) SUBCUT SCH (11:00)
[2018-07-12] MEDS: INSULIN REG, HUMAN 100 UNIT/ML 3 ML VIAL (PYX) SUBCUT SCH ×2 (12:11→17:47)
[2018-07-12] MEDS ORDERED: DOXAZOSIN MESYLATE 2 MG TABLET PO SCH (22:00)
[2018-07-12 22:11] VITALS: BP 146/64
== END 2018-07-12 21:00 | disposition short-term general hospital (02) ==
LOC: ER 21:22
DX: I20.0 Unstable angina (principal); I11.0 Hypertensive heart disease with heart failure; I50.9 Heart failure, unspecified; R07.9 Chest pain, unspecified; M79.89 Other specified soft tissue disorders; J44.9 Chronic obstructive pulmonary disease, unspecified; E11.9 Type 2 diabetes mellitus without complications; Z79.02 Long term (current) use of antithrombotics/antiplatelets; Z87.891 Personal history of nicotine dependence
CPT/HCPCS: 93005; 96376; 94640 ×2; 99285; 96375; 96365; 96366; 96368; 36415; 82553; 82962; 82550; 85025; 85610; 85730; 80048; 80053; 84484; 71045; 93010; J1644; A9270 ×12; J2270 ×2; J2405; J3490 ×2; J1815; J7620

== ENCOUNTER → 2018-10-09 | Outpatient (CLI) | payer MEDICARE ==
[2018-10-09 12:15] LABS: HEMATOCRIT 34.9 % (37.9-51.0); HEMOGLOBIN 11.7 g/dL (13.5-17.0); MEAN CORPUSCULAR HEMOGLOBIN 27.1 pg (27.0-33.4); MEAN CORPUSCULAR HGB CONC 33.6 g/dL (32.0-36.0); MEAN CORPUSCULAR VOLUME 81 fl (80-97); PLATELET COUNT 255 10^3/uL (150-450); RED BLOOD COUNT 4.32 10^6/uL (4.35-5.55); RED CELL DISTRIBUTION WIDTH 15.1 % (11.5-14.0); WHITE BLOOD COUNT 8.3 10^3/uL (4.0-10.5)
[2018-10-09 12:22] LABS: APPEARANCE,URINE CLEAR; BILIRUBIN,URINE NEGATIVE (NEGATIVE); COLOR,URINE YELLOW; GLUCOSE, URINE NEGATIVE (NEGATIVE); KETONES,URINE NEGATIVE (NEGATIVE); LEUKOCYTE ESTERASE,URINE NEGATIVE (NEGATIVE); NITRITE,URINE NEGATIVE (NEGATIVE); PROTEIN,URINE 100 mg/dL (NEGATIVE); URINE SPECIFIC GRAVITY 1.013; UROBILINOGEN,URINE NEGATIVE mg/dL (<2.0)
[2018-10-09 12:34] LABS: ANION GAP 8 (5-19); BLOOD UREA NITROGEN 30 mg/dL (7-20); CALCIUM 9.6 mg/dL (8.4-10.2); CARBON DIOXIDE 26 mmol/L (22-30); CHLORIDE 105 mmol/L (98-107); GLUCOSE 161 mg/dL (75-110); POTASSIUM 4.5 mmol/L (3.6-5.0)
[2018-10-09 13:01] LABS: URINE CREATININE 65.6 mg/dL (22-328)
== END ==
LOC: OD 11:43
PROVIDERS: ATTEND Internal Medicine Nephrology
DX: E11.9 Type 2 diabetes mellitus without complications (principal); R80.9 Proteinuria, unspecified; I10 Essential (primary) hypertension; E66.01 Morbid (severe) obesity due to excess calories
CPT/HCPCS: 36415; 80048; 81001; 82570; 83735; 84156; 85027

== ENCOUNTER → 2019-03-28 | Outpatient (CLI) | payer MEDICARE ==
[2019-03-28 13:47] LABS: CREATINE KINASE 59 U/L (55-170); IRON(TIBC) 47.4 ug/dL (49-181)
[2019-03-28 14:00] LABS: CREATINE KINASE MB 1.04 ng/mL (<4.55)
[2019-03-28 14:07] LABS: TROPONIN I < 0.012 ng/mL
== END ==
LOC: OD 12:11
PROVIDERS: ATTEND Internal Medicine Geriatric Medicine
DX: R53.83 Other fatigue (principal); R61 Generalized hyperhidrosis; D50.9 Iron deficiency anemia, unspecified; Z95.9 Presence of cardiac and vascular implant and graft, unspecified; E78.41 Elevated Lipoprotein(a); R79.82 Elevated C-reactive protein (CRP); Z86.79 Personal history of other diseases of the circulatory system
CPT/HCPCS: 36415; 82550; 82553; 82728; 83540; 83550; 84443; 84484; 85652; 86141

== ENCOUNTER → 2019-12-23 | Day surgery (SDC) | payer MEDICARE ==
[2019-12-19 14:31] LABS: HEMATOCRIT 34.2 % (37.9-51.0); HEMOGLOBIN 11.6 g/dL (13.5-17.0); MEAN CORPUSCULAR HEMOGLOBIN 27.8 pg (27.0-33.4); MEAN CORPUSCULAR HGB CONC 33.7 g/dL (32.0-36.0); MEAN CORPUSCULAR VOLUME 83 fl (80-97); PLATELET COUNT 243 10^3/uL (150-450); RED BLOOD COUNT 4.15 10^6/uL (4.35-5.55); RED CELL DISTRIBUTION WIDTH 14.9 % (11.5-14.0); WHITE BLOOD COUNT 6.8 10^3/uL (4.0-10.5)
[2019-12-19 14:50] LABS: ANION GAP 10 (5-19); BLOOD UREA NITROGEN 29 mg/dL (7-20); CALCIUM 9.5 mg/dL (8.4-10.2); CARBON DIOXIDE 27 mmol/L (22-30); CHLORIDE 106 mmol/L (98-107); GLUCOSE 85 mg/dL (75-110); POTASSIUM 4.6 mmol/L (3.6-5.0)
--- NOTE | 2019-12-19 17:54 | EKG REPORT ---
SEVERITY:- BORDERLINE ECG - SINUS BRADYCARDIA BORDERLINE IVCD WITH LAD : Confirmed by: Kale Rosa MD 19-Dec-2019 17:53:12
[~2019-12-23] MED LIST changes: -CHONDR SU A NA/HYALUR INTRAOC KIT (SURGICARE) ONE; -EPINEPHRINE INJ/PF 1 MG/1 ML AMPULE ONE; -KETOROLAC TROMETHAMINE 0.45% 4 DROP/0.4 ML DROPERETTE OD PRN; -LIDOCAINE 1% INJ-PF (10 MG/ML) 30 ML SDV ONE; +PROPOFOL INJ 200 MG/20 ML VIAL IV ONE; -TOBRAMYCIN SULFATE/DEXAMETH OPH OINTMENT 3.5 GM ONE
--- NOTE | 2019-12-23 09:41 | Operative Report ---
Operative Report DATE OF SURGERY: 12/23/19 Operative Report: The risk, benefits and alternatives of the procedure including the risk of bleeding, perforation requiring surgery have been explained to the patient in detail and informed consent has been obtained. Patient is placed in left, lateral decubital position. Timeout was called. Propofol medication is administered. Rectal examination is done which did not reveal any masses, tears or fissures. An Olympus videoscope was introduced into the patient's rectum and carefully advanced all the way to the cecum. Somewhat inadequate prep. Irrigation is used About a liter of fluid is instilled into the patient's colon for better visualization. The distal segments of the colon are visualized including the ascending colon, hepatic flexure, transverse colon, splenic flexure, descending colon finally into the rectosigmoid portions of the colon. Retroflexion maneuver is not able to be performed. PREOPERATIVE DIAGNOSIS: Colorectal cancer screening POSTOPERATIVE DIAGNOSIS: Small colon polyp removed via biopsy forceps. Right colon inflammation status post biopsy. Inadequate prep. Internal hemorrhoids OPERATION: Colonoscopy with biopsy SURGEON: DANIE MACIEL ANESTHESIA: LMAC TISSUE REMOVED OR ALTERED: As noted above. COMPLICATIONS: None. ESTIMATED BLOOD LOSS: None. INTRAOPERATIVE FINDINGS: As noted above. PROCEDURE: Patient tolerated the procedure well. No immediate postprocedure complications are noted. Patient is discharged in good condition. Discharge date 12/23/2019. Discharge diet: Regular. Discharge activity: Regular. 2 to 3-week follow-up to discuss findings. Patient is instructed to call the office or proceed to the emergency room should there be any further problems or questions. Since there is a polyp 3 to 5-year surveillance. However given the inadequate prep, colonoscopy with alternative prep should be done next year. Follow-up on pathology.
[2019-12-23 10:22] VITALS: BP 136/58
== END ==
LOC: END 08:04
PROVIDERS: ATTEND Internal Medicine Gastroenterology
DX: Z12.11 Encounter for screening for malignant neoplasm of colon (principal); K52.9 Noninfective gastroenteritis and colitis, unspecified; K63.5 Polyp of colon; K64.8 Other hemorrhoids; K59.00 Constipation, unspecified; I10 Essential (primary) hypertension; K21.9 Gastro-esophageal reflux disease without esophagitis; M19.90 Unspecified osteoarthritis, unspecified site; Z79.899 Other long term (current) drug therapy; Z12.12 Encounter for screening for malignant neoplasm of rectum; Z03.818 Encounter for observation for suspected exposure to other biological agents ruled out; E11.9 Type 2 diabetes mellitus without complications; Z79.4 Long term (current) use of insulin; Z79.891 Long term (current) use of opiate analgesic
CPT/HCPCS: 45380; 93005; 36415; 82962; 85027; 80048; 88305 ×2; 93010; 00811; U0003; J2704; C9803; 811; 87635

== ENCOUNTER → 2019-12-31 | Outpatient (CLI) | payer MEDICARE ==
[2019-12-31 10:14] LABS: ABSOLUTE BASOPHILS # (AUTO) 0.1 10^3/uL (0.0-0.2); ABSOLUTE EOSINOPHILS # (AUTO) 0.3 10^3/uL (0.0-0.6); ABSOLUTE LYMPHOCYTES (AUTO) 1.5 10^3/uL (0.5-4.7); ABSOLUTE MONOCYTES (AUTO) 0.6 10^3/uL (0.1-1.4); ABSOLUTE NEUT (AUTO) 5.1 10^3/uL (1.7-8.2); EOSINOPHILS % (AUTO) 4.2 % (0-6); HEMATOCRIT 36.4 % (37.9-51.0); HEMOGLOBIN 12.3 g/dL (13.5-17.0); LYMPHOCYTES % (AUTO) 19.7 % (13-45); MEAN CORPUSCULAR HEMOGLOBIN 27.7 pg (27.0-33.4); MEAN CORPUSCULAR HGB CONC 33.8 g/dL (32.0-36.0); MEAN CORPUSCULAR VOLUME 82 fl (80-97); MONOCYTES % (AUTO) 7.9 % (3-13); PLATELET COUNT 260 10^3/uL (150-450); RED BLOOD COUNT 4.44 10^6/uL (4.35-5.55); RED CELL DISTRIBUTION WIDTH 14.8 % (11.5-14.0); SEGMENTED NEUTROPHILS % (AUTO) 67.2 % (42-78); TOTAL CELLS COUNTED % (AUTO) 100 %; WHITE BLOOD COUNT 7.6 10^3/uL (4.0-10.5)
[2019-12-31 10:17] LABS: INTERNATIONAL RATION (INR) 0.98; PROTHROMBIN TIME 13.2 SEC (11.4-15.4)
[2019-12-31 10:18] LABS: PARTIAL THROMBOPLASTIN TIME 31.4 SEC (23.5-35.8)
[2019-12-31 10:24] LABS: APPEARANCE,URINE CLEAR; BILIRUBIN,URINE NEGATIVE (NEGATIVE); COLOR,URINE YELLOW; GLUCOSE, URINE NEGATIVE (NEGATIVE); KETONES,URINE NEGATIVE (NEGATIVE); LEUKOCYTE ESTERASE,URINE NEGATIVE (NEGATIVE); NITRITE,URINE NEGATIVE (NEGATIVE); PROTEIN,URINE NEGATIVE (NEGATIVE); URINE SPECIFIC GRAVITY 1.009; UROBILINOGEN,URINE NEGATIVE mg/dL (<2.0)
[2019-12-31 10:31] LABS: ALBUMIN 4.3 g/dL (3.5-5.0); ANION GAP 13 (5-19); BLOOD UREA NITROGEN 31 mg/dL (7-20); C-REACTIVE PROTEIN 17.4 mg/L (<10.0); CALCIUM 9.7 mg/dL (8.4-10.2); CARBON DIOXIDE 27 mmol/L (22-30); CHLORIDE 104 mmol/L (98-107); GLUCOSE 77 mg/dL (75-110); POTASSIUM 4.5 mmol/L (3.6-5.0)
[2019-12-31 11:01] LABS: ERYTHROCYTE SEDIMENTATION RATE 32 mm/hr (0-20)
--- NOTE | 2019-12-31 11:10 | RADIOLOGY REPORT (SQ) ---
EXAM DESCRIPTION: CHEST PA/LATERAL IMAGES COMPLETED DATE/TIME: 12/31/2019 9:49 am REASON FOR STUDY: PRE-OP COMPARISON: 09/22/2018 EXAM PARAMETERS: NUMBER OF VIEWS: two views TECHNIQUE: Digital Frontal and Lateral radiographic views of the chest acquired. RADIATION DOSE: NA LIMITATIONS: none FINDINGS: LUNGS AND PLEURA: Minimal linear bibasilar opacities, likely atelectasis or scarring. MEDIASTINUM AND HILAR STRUCTURES: No masses or contour abnormalities. HEART AND VASCULAR STRUCTURES: Borderline enlarged. Vascular calcifications. BONES: No acute findings. HARDWARE: None in the chest. OTHER: No other significant finding. IMPRESSION: Minimal linear bibasilar opacities, likely atelectasis or scarring. TECHNICAL DOCUMENTATION: JOB ID: [id number] 2010 [employer]- All Rights Reserved Reading location - IP/workstation name: [email or web address]
--- NOTE | 2019-12-31 16:33 | EKG REPORT ---
SEVERITY:- ABNORMAL ECG - SINUS RHYTHM LAD, CONSIDER LAFB OR INFERIOR INFARCT : Confirmed by: Kale Rosa MD 31-Dec-2019 16:32:42
== END ==
LOC: OD 08:34
PROVIDERS: ATTEND Orthopaedic Surgery
DX: Z01.810 Encounter for preprocedural cardiovascular examination (principal); Z01.811 Encounter for preprocedural respiratory examination; Z01.812 Encounter for preprocedural laboratory examination; Z01.818 Encounter for other preprocedural examination; E11.9 Type 2 diabetes mellitus without complications
CPT/HCPCS: 36415; 71046; 80048; 81001; 82040; 82306; 83036; 85025; 85610; 85652; 85730; 86140; 87070; 93005; 93010

== ENCOUNTER → 2020-01-15 | Outpatient (CLI) | payer MEDICARE ==
--- NOTE | 2020-01-15 10:58 | RADIOLOGY REPORT (SQ) ---
EXAM DESCRIPTION: FOOT LEFT COMPLETE IMAGES COMPLETED DATE/TIME: 01/15/2020 8:07 am REASON FOR STUDY: ABNORMAL FINDINGS ON DIAGNOSTIC IMAGING OF LIMBS R93.6 ABNORMAL FINDINGS ON DIAGN OSTIC IMAGING OF LIMBS COMPARISON: None. NUMBER OF VIEWS: Three views. TECHNIQUE: AP, lateral and oblique radiographic images acquired of the left foot. LIMITATIONS: None. FINDINGS: MINERALIZATION: Normal. BONES: No acute fracture or dislocation. Prominent plantar and posterior calcaneal spurs. JOINTS: No effusions. SOFT TISSUES: There appear to be 3 ossicles in the peroneus longus tendon. OTHER: No other significant finding. IMPRESSION: Calcaneal spurs. 3 ossicles in the peroneus longus tendon. TECHNICAL DOCUMENTATION: JOB ID: [id number] 2010 [employer]- All Rights Reserved Reading location - IP/workstation name: [email or web address]
== END ==
LOC: OD 07:52
PROVIDERS: ATTEND Podiatrist Foot & Ankle Surgery
DX: M77.32 Calcaneal spur, left foot (principal)

== ENCOUNTER 2020-01-20 05:28 | Observation (INO) | payer MEDICARE ==
[~2020-01-20 05:28] MED LIST changes: +ACETAMINOPHEN 325 MG TABLET ONE; +ACETAMINOPHEN 325 MG TABLET PO PRN; +CEFAZOLIN 2 GM/D5W RTU 2 GM/50 ML RTUPB IV ONE; +CEFAZOLIN 2 GM/D5W RTU 2 GM/50 ML RTUPB IV PRN; +CELECOXIB 200 MG CAPSULE ONE; +CELECOXIB 200 MG CAPSULE PO PRN; +GABAPENTIN 100 MG CAPSULE ONE; +GABAPENTIN 100 MG CAPSULE PO PRN; +NORMAL SALINE 1000 ML (RENAL PATIENTS) IV PRN; +ONDANSETRON HCL INJ/PF 4 MG/2 ML SDV ONE; +OXYCODONE HCL SR 10 MG TABLET PO ONE; +OXYCODONE HCL SR 10 MG TABLET PO PRN; +PANTOPRAZOLE SODIUM 20 MG TABLET.DR PO ONE; +PANTOPRAZOLE SODIUM 20 MG TABLET.DR PO PRN; -PROPOFOL INJ 200 MG/20 ML VIAL IV ONE; +SCOPOLAMINE HYDROBROMIDE 1.5 MG PATCH.TD72 ONE; +SCOPOLAMINE HYDROBROMIDE 1.5 MG PATCH.TD72 TD PRN; +TRANEXAMIC ACID INJ/PF 1,000 MG/10 ML SDV IV PRN; +VANCOMYCIN HCL 1,000 MG in DEXTROSE 5%-WATER 250 ML IV PRN
[2020-01-20] MEDS ORDERED: LIDOCAINE 0.5% INJ-PF (5 MG/ML) 50 ML SDV ONE (06:20)
[2020-01-20] MEDS ORDERED: KETAMINE HCL INJ 500 MG/10 ML VIAL ONE (06:22)
[2020-01-20] MEDS ORDERED: EPINEPHRINE INJ/PF 1 MG/1 ML AMPULE ONE (06:22)
[2020-01-20] MEDS ORDERED: MIDAZOLAM 2 MG/2 ML INJ ONE (06:22)
[2020-01-20] MEDS ORDERED: FENTANYL CITRATE INJ/PF 100 MCG/2 ML AMPUL ONE (06:22)
[2020-01-20] MEDS ORDERED: ONDANSETRON HCL INJ/PF 4 MG/2 ML SDV ONE ×2 (06:23→09:49)
[2020-01-20] MEDS ORDERED: EPHEDRINE SULFATE INJ 50 MG/1 ML AMPULE ONE (06:23)
[2020-01-20] MEDS ORDERED: PROPOFOL INJ 200 MG/20 ML VIAL IV ONE (06:23)
[2020-01-20] MEDS ORDERED: TRANEXAMIC ACID INJ/PF 1,000 MG/10 ML SDV ONE (06:23)
[2020-01-20 06:44] LABS: POTASSIUM 4.8 mmol/L (3.6-5.0)
[2020-01-20] MEDS ORDERED: BUPIVACAINE HCL 0.25 % INJ/PF (2.5 MG/1 ML) 30 ML VIAL ONE (07:11)
[2020-01-20] MEDS ORDERED: VANCOMYCIN HCL INJ 1000 MG VIAL ONE (07:11)
[2020-01-20] MEDS ORDERED: KETOROLAC TROMETHAMINE INJ/PF 30 MG/1 ML SDV ONE (07:11)
[2020-01-20] MEDS ORDERED: LIDOCAINE 1% INJ-PF (10 MG/ML) 30 ML SDV ONE (07:11)
[2020-01-20] MEDS ORDERED: MORPHINE SULFATE 10 MG/ML INJ IV PRN ×3 (07:18→08:33)
[2020-01-20] MEDS ORDERED: PANTOPRAZOLE SODIUM 20 MG TABLET.DR PO ONE (07:18)
[2020-01-20] MEDS ORDERED: ONDANSETRON 4 MG TAB.RAPDIS PO PRN (07:18)
[2020-01-20] MEDS ORDERED: TRAMADOL HCL 50 MG TABLET PO PRN (07:18)
[2020-01-20] MEDS ORDERED: DIPHENHYDRAMINE HCL 25 MG CAPSULE PO PRN (07:18)
[2020-01-20] MEDS ORDERED: NORMAL SALINE 1000 ML 1,000 ML IV ONE (07:18)
[2020-01-20] MEDS ORDERED: ZOLPIDEM TARTRATE 5 MG TABLET PO PRN (07:18)
[2020-01-20] MEDS ORDERED: OXYCODONE HCL IR 5 MG TABLET PO PRN ×4 (07:18)
[2020-01-20] MEDS ORDERED: TRANEXAMIC ACID INJ/PF 1,000 MG/10 ML SDV IV ONE (07:18)
[2020-01-20] MEDS ORDERED: DOCUSATE SODIUM 100 MG CAPSULE PO PRN (07:18)
[2020-01-20] MEDS ORDERED: (PENDING PHARMACY ID) (Insulin Aspart [Novolog] 100 UNIT/ML Vial) SQ PRN (07:21)
[2020-01-20] MEDS ORDERED: CEFAZOLIN INJ 1 GM VIAL ONE (08:02)
[2020-01-20] MEDS ORDERED: FENTANYL CITRATE INJ/PF 100 MCG/2 ML AMPUL IV PRN ×3 (08:33)
[2020-01-20] MEDS ORDERED: PROMETHAZINE HCL INJ 25 MG/1 ML VIAL IV PRN ×2 (08:33)
[2020-01-20] MEDS ORDERED: ONDANSETRON HCL INJ/PF 4 MG/2 ML SDV IV PRN (08:33)
[2020-01-20] MEDS ORDERED: MEPERIDINE HCL/PF INJ 25 MG/1 ML DISP.SYRIN IV PRN (08:33)
[2020-01-20] MEDS ORDERED: DIPHENHYDRAMINE HCL 50 MG/ML VIAL IV PRN (08:33)
--- NOTE | 2020-01-20 09:45 | Operative Report ---
Operative Report DATE OF SURGERY: 01/20/20 PREOPERATIVE DIAGNOSIS: Right primary hip osteoarthritis POSTOPERATIVE DIAGNOSIS: Right primary hip osteoarthritis OPERATION: Right total hip arthroplasty SURGEON: CHRISTIAN FALL JR ANESTHESIA: Spinal COMPLICATIONS: none ESTIMATED BLOOD LOSS: 200 cc PROCEDURE: Implants: [employer] size 4 high offset femoral stem with , a R3 size 52 cup, and a 36 standard liner, a +4 neck length 36 mm Oxinium head OPERATIVE PROCEDURE: Patient was brought to the operating room on and underwent spinal anesthesia. 3 grams of Ancef and 1 g of vancomycin was given. After proper anesthesia was obtained, patient was positioned, padded, prepped, and draped in the usual sterile fashion on the operating room table. Appropriate time out was performed. An anterior approach to the hip was undertaken with meticulous hemostasis through the deep interval. A capsulectomy was performed followed by exposure of the femoral neck. The femoral neck was cut in line with the femoral broach and the femoral head was removed. The acetabulum was then exposed with three retractors in an atraumatic fashion. Soft tissue and osteophytes were removed. Medialization reaming was performed followed by reaming of the acetabulum. Wound was irrigated with dilute betadyne solution and the 52 mm acetabulum was impacted into correct position and stability checked by manipulating the impaction handle which rocked the pelvis. A standard liner was impacted into the shell with good stability. Potential impinging osteophytes were removed. Attention was then directed toward the femur, which was exposed with two retractors in an atraumatic fashion. A bone hook was placed to carefully perform releases along the superior capsule until the femur was safely delivered through the wound. A dust box worker was utilized followed by lateralization rasping and then broaching up to a stable, filled proximal femur and a size 3. With a lateral offset neck and a 0 head, stability was good in flexion and extension with near equal leg lengths. After checking under fluoroscopy the stem appeared to be slightly undersized and we proceeded to broach up to a size 4. The final size 4 stem was impacted into a copiously irrigated femoral canal. The final size 36+4 head was impacted on a clean dry femoral taper. The hip was irrigated and reduced, further irrigation with antibiotic solution, betadine solution, then antibiotic solution. Bleeders were coagulated with bovie cautery. The fascia was then closed with number 2 barbed PDS; the subcutaneous tissue closed with 2-0 monocryl and then a running 3-0 monocryl subcuticular. A silver dressing was then applied. All needle sponge and instrument counts were corre ct. Patient was awakened from sedation anesthesia and taken to recovery room in stable condition. The patient has a BMI of 42.6 and an overall weight of 127 kg. Aside from being obese the patient is also quite muscular. This led to increased effort and retracting as well as taking great care to avoid muscle or bony injury throughout the procedure due to the increased force required to manipulating the hip. Closing the proximal femur was difficult given the patient's [place] femoral retroversion as well as soft tissue envelope requiring increased time and effort. Additionally checking for stability required increased effort to mobilize his leg and check impingement as well as range of motion and stability.
--- NOTE | 2020-01-20 09:51 | Discharge Summary ---
Discharge Summary (SDC) - Discharge Final Diagnosis: Right total hip replacement Date of Surgery: 01/20/20 Discharge Date: 01/20/20 Condition: Stable Treatment or Instructions: Full details of postoperative instructions have been provided to the patient in the clinic. Additionally they should maintain their bandage in place for 10 days, and then changed to a dry dressing. They can take showers with this occlusive dressing but any further dressing should also be occlusive. No showers with the wound unprotected until cleared by me in the clinic. If the bandage falls off early or become saturated they can change as needed to another occlusive dressing. Follow-up with Dr. Pranav Mai, orthopedic surgeon at [facility] for surgery, in 10 days. Call for an appointment. . [address], [place] [address] Referrals: DUANE BEVERLY MD [Primary Care Provider] - Discharge Diet: As Tolerated, Diabetic Respiratory Treatments at Home: Deep Breathing/Coughing Discharge Activity: Activity As Tolerated, No Driving, Keep Legs Elevated, No Lifting/Push/Pulling, No tub bath, Walk Frequently Activities Provided by Home Health Agency: Physical Therapy Adaptive Devices on Discharge: Rolling Walker, Bedside Commode Report the Following to Your Physician Immediately: Shortness of Breath, Fever over 101 Degrees, Unusual Bleeding, Drainage-Yellow
[2020-01-20] MEDS ORDERED: MAGNESIUM OXIDE 400 MG TABLET PO SCH (10:00)
[2020-01-20] MEDS ORDERED: (PENDING PHARMACY ID) (Metformin Hcl [Metformin Hcl] 1,000 MG Tablet) PO SCH (10:00)
[2020-01-20] MEDS ORDERED: SPIRONOLACTONE 50 MG PO SCH (10:00)
[2020-01-20] MEDS ORDERED: CELECOXIB 200 MG CAPSULE PO SCH (10:00)
[2020-01-20] MEDS ORDERED: MECLIZINE HCL 25 MG TABLET PO SCH (10:00)
[2020-01-20] MEDS ORDERED: HUM INSULIN NPH/REG INSULIN HM 100 UNIT/1 ML 3 ML SUBCUT SCH (10:00)
[2020-01-20] MEDS ORDERED: ASPIRIN 325 MG TABLET PO SCH (10:00)
[2020-01-20] MEDS ORDERED: ISOSORBIDE MONONITRATE 30 MG TAB.ER.24H PO SCH (10:00)
[2020-01-20] MEDS ORDERED: GABAPENTIN 100 MG CAPSULE PO SCH (10:00)
[2020-01-20] MEDS ORDERED: METFORMIN HCL 500 MG TABLET PO SCH (10:00)
--- NOTE | 2020-01-20 10:03 | RADIOLOGY REPORT (SQ) ---
EXAM DESCRIPTION: HIP RIGHT AP/LATERAL IMAGES COMPLETED DATE/TIME: 01/20/2020 9:53 am REASON FOR STUDY: post-op M16.11 UNILATERAL PRIMARY OSTEOARTHRITIS, RIGHT HIP Z79.899 OTHER COMMUNICATIONS AGENT (CURRENT) DRUG THERAPY COMPARISON: None. NUMBER OF VIEWS: Two view(s). TECHNIQUE: Digital radiographic images of the right hip post-procedure. LIMITATIONS: None. FINDINGS: BONES: No worrisome or unexpected findings post-procedure. DEVICE: Total hip replacement. Components of the device in appropriate location. SOFT TISSUES: No worrisome findings. Expected postoperative soft tissue changes. IMPRESSION: SATISFACTORY POSTOPERATIVE RIGHT HIP. TECHNICAL DOCUMENTATION: JOB ID: [id number] 2010 [email or web address]- All Rights Reserved Reading location - IP/workstation name: [email or web address]
--- NOTE | 2020-01-20 10:08 | RADIOLOGY REPORT (SQ) ---
EXAM DESCRIPTION: HIP IN OPERATING RM; NO CHG FLUORO IMAGES COMPLETED DATE/TIME: 01/20/2020 9:57 am REASON FOR STUDY: RIGHT HIP TOTAL ARTHROPLASTY ASSISTED WITH FLUORO IN OR M16.11 UNILATERAL PRIMARY OSTEOARTHRITIS, RIGHT HIP Z79.899 OTHER [facility] (CURRENT) DRUG THERAPY COMPARISON: None. FLUOROSCOPY TIME: 0.1 minutes Spot images saved to PACS. TECHNIQUE: Intra-operative images acquired during surgical procedure to evaluate progress. NUMBER OF IMAGES: 3 LIMITATIONS: None. FINDINGS: Fluoroscopy was provided for intraoperative procedure. Please refer to the operative repo rt for further discussion. IMPRESSION: IMAGE(S) OBTAINED DURING PROCEDURE. COMMENT: Quality ID 145: Final reports for procedures using fluoroscopy that document radiation exp osure indices, or exposure time and number of fluorographic images (if radiation exposure indices are not available) Please consult full operative report of the attending physician for description of the procedure. TECHNICAL DOCUMENTATION: JOB ID: [id number] 2010 [employer]- All Rights Reserved Reading location - IP/workstation name: [email or web address]
--- NOTE | 2020-01-20 10:08 | RADIOLOGY REPORT (SQ) ---
EXAM DESCRIPTION: HIP IN OPERATING RM; NO CHG FLUORO IMAGES COMPLETED DATE/TIME: 01/20/2020 9:57 am REASON FOR STUDY: RIGHT HIP TOTAL ARTHROPLASTY ASSISTED WITH FLUORO IN OR M16.11 UNILATERAL PRIMARY OSTEOARTHRITIS, RIGHT HIP Z79.899 OTHER CARE HOME (CURRENT) DRUG THERAPY COMPARISON: None. FLUOROSCOPY TIME: 0.1 minutes Spot images saved to PACS. TECHNIQUE: Intra-operative images acquired during surgical procedure to evaluate progress. NUMBER OF IMAGES: 3 LIMITATIONS: None. FINDINGS: Fluoroscopy was provided for intraoperative procedure. Please refer to the operative repo rt for further discussion. IMPRESSION: IMAGE(S) OBTAINED DURING PROCEDURE. COMMENT: Quality ID 145: Final reports for procedures using fluoroscopy that document radiation exp osure indices, or exposure time and number of fluorographic images (if radiation exposure indices are not available) Please consult full operative report of the attending physician for description of the procedure. TECHNICAL DOCUMENTATION: JOB ID: [id number] 2010 [employer]- All Rights Reserved Reading location - IP/workstation name: [email or web address]
[2020-01-20] MEDS ORDERED: DEXAMETHASONE SOD PHOSPHATE INJ 4 MG/1 ML VIAL ONE (10:13)
[2020-01-20] MEDS: DEXAMETHASONE SOD PHOS INJ 10 MG/1 ML VIAL IV ONE ×2 (10:15→13:04)
[2020-01-20] MEDS ORDERED: DEXTROSE 50%-WATER 25 GM/50 ML DISP.SYRIN IV PRN ×2 (10:15)
[2020-01-20] MEDS ORDERED: GLUCAGON,HUMAN RECOMB 1 MG INJ IM PRN (10:15)
[2020-01-20] MEDS ORDERED: DEXTROSE 40% GEL 15 GM TUBE PO PRN ×2 (10:15)
[2020-01-20] MEDS ORDERED: PROMETHAZINE HCL INJ 25 MG/1 ML VIAL ONE (10:19)
[2020-01-20] MEDS ORDERED: ACETAMINOPHEN 325 MG TABLET PO SCH (12:00)
[2020-01-20] MEDS: KETOROLAC TROMETHAMINE INJ/PF 30 MG/1 ML SDV IV SCH ×2 (13:03→14:03)
[2020-01-20] MEDS ORDERED: CEFAZOLIN 2 GM/D5W RTU 2 GM/50 ML RTUPB IV SCH (14:00)
[2020-01-20] MEDS ORDERED: CEFAZOLIN SODIUM 2 GM in DEXTROSE 5%-WATER 100 ML IV SCH (14:00)
[2020-01-20] MEDS ORDERED: CEFAZOLIN SODIUM 3 GM in DEXTROSE 5%-WATER 100 ML IV SCH (14:00)
[2020-01-20] MEDS ORDERED: INSULIN LISPRO 100 UNIT/ML 3 ML VIAL SUBCUT SCH (16:00)
[2020-01-20 17:48] VITALS: BP 154/62
[2020-01-20] MEDS ORDERED: GLIMEPIRIDE 4 MG TABLET PO SCH (18:00)
[2020-01-20] MEDS ORDERED: SPIRONOLACTONE 25 MG TABLET PO SCH (18:00)
[2020-01-20] MEDS ORDERED: FUROSEMIDE 40 MG TABLET PO SCH (18:00)
[2020-01-20] MEDS ORDERED: CARVEDILOL 6.25 MG TABLET PO SCH (22:00)
[2020-01-20] MEDS ORDERED: BUSPIRONE HCL 10 MG TABLET PO SCH (22:00)
[2020-01-20] MEDS ORDERED: LOSARTAN POTASSIUM 25 MG TABLET PO SCH (22:00)
[2020-01-20] MEDS ORDERED: ATORVASTATIN CALCIUM 20 MG TABLET PO SCH (22:00)
[2020-01-21] MEDS ORDERED: PANTOPRAZOLE SODIUM 40 MG TABLET.DR PO SCH (06:00)
[2020-01-21] MEDS ORDERED: CLOPIDOGREL BISULFATE 75 MG TABLET PO SCH (10:00)
[2020-01-21] MEDS ORDERED: ASPIRIN 81 MG TABLET, ENT COATED PO SCH (10:00)
[2020-01-21] MEDS ORDERED: AMLODIPINE BESYLATE 5 MG TABLET PO SCH (10:00)
[2020-01-21] MEDS ORDERED: POLYETHYLENE GLYCOL 3350 POWDER 17 GM/1 PACKET PO SCH (10:00)
[2020-01-21] MEDS ORDERED: LISINOPRIL 5 MG TABLET PO SCH (10:00)
[2020-01-22] MEDS ORDERED: CELECOXIB 100 MG CAPSULE PO SCH (10:00)
[2020-01-22] MEDS ORDERED: MELOXICAM 7.5 MG TABLET PO SCH (10:00)
== END 2020-01-20 18:00 | disposition home or self-care (01) ==
LOC: OROUT 05:28 → INOR 07:18 → 4W 12:56
PROVIDERS: ADMIT Orthopaedic Surgery; ATTEND Orthopaedic Surgery
DX: M16.11 Unilateral primary osteoarthritis, right hip (principal); Z20.828 Contact with and (suspected) exposure to other viral communicable diseases; E66.01 Morbid (severe) obesity due to excess calories; E11.65 Type 2 diabetes mellitus with hyperglycemia; G47.30 Sleep apnea, unspecified; I11.9 Hypertensive heart disease without heart failure; Z79.82 Long term (current) use of aspirin; Z79.899 Other long term (current) drug therapy; Z79.4 Long term (current) use of insulin; Z68.41 Body mass index [BMI] 40.0-44.9, adult; J44.9 Chronic obstructive pulmonary disease, unspecified; Z95.5 Presence of coronary angioplasty implant and graft; Z79.02 Long term (current) use of antithrombotics/antiplatelets
CPT/HCPCS: 86900; 86901; 36415; 86850; 82962; 82947; 84132; 73502; 73501; 97110; 97116; 97162; 97535; 97165; 01214; 27130; G0378; C1776 ×4; U0003; A9270 ×8; J2250; J0690 ×2; J1100; J3490 ×5; J0171; J3010; J1885; J2550; J2405; J7060 ×2; J2704; J3370; C9803; 87635; J1815

== ENCOUNTER 2020-02-18 10:32 | Emergency (ER) | payer MEDICARE ==
[2020-02-18] MEDS ORDERED: VANCOMYCIN HCL INJ 1000 MG VIAL IV ONE (11:00)
[2020-02-18] MEDS ORDERED: PIPERACILLIN/TAZOBACTAM 3.375 GM VIAL IV ONE (11:01)
[2020-02-18 11:04] LABS: VENOUS BLOOD BASE EXCESS -3.5 mmol/L; VENOUS BLOOD HCO3 23.5 mmol/L (20-32); VENOUS BLOOD PCO2 50.9 mmHg (35-63); VENOUS BLOOD PH 7.28 (7.30-7.42)
[2020-02-18 11:08] LABS: ABSOLUTE BASOPHILS # (AUTO) 0.1 10^3/uL (0.0-0.2); ABSOLUTE EOSINOPHILS # (AUTO) 0.4 10^3/uL (0.0-0.6); ABSOLUTE LYMPHOCYTES (AUTO) 1.8 10^3/uL (0.5-4.7); ABSOLUTE MONOCYTES (AUTO) 0.7 10^3/uL (0.1-1.4); ABSOLUTE NEUT (AUTO) 4.6 10^3/uL (1.7-8.2); BASOPHILS % (AUTO) 0.9 % (0-2); EOSINOPHILS % (AUTO) 5.6 % (0-6); HEMATOCRIT 32.1 % (37.9-51.0); HEMOGLOBIN 10.3 g/dL (13.5-17.0); INTERNATIONAL RATION (INR) 1.03; LYMPHOCYTES % (AUTO) 23.2 % (13-45); MEAN CORPUSCULAR HEMOGLOBIN 26.6 pg (27.0-33.4); MEAN CORPUSCULAR HGB CONC 32.2 g/dL (32.0-36.0); MEAN CORPUSCULAR VOLUME 83 fl (80-97); MONOCYTES % (AUTO) 9.2 % (3-13); PLATELET COUNT 300 10^3/uL (150-450); PROTHROMBIN TIME 13.7 SEC (11.4-15.4); RED BLOOD COUNT 3.89 10^6/uL (4.35-5.55); RED CELL DISTRIBUTION WIDTH 15.9 % (11.5-14.0); SEGMENTED NEUTROPHILS % (AUTO) 61.1 % (42-78); TOTAL CELLS COUNTED % (AUTO) 100 %; WHITE BLOOD COUNT 7.6 10^3/uL (4.0-10.5)
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
[2020-02-18 11:13] LABS: ALBUMIN 4.1 g/dL (3.5-5.0); ALKALINE PHOSPHATASE 73 U/L (38-126); ANION GAP 8 (5-19); ASPARTATE AMINO TRANSFERASE 26 U/L (17-59); BILIRUBIN,DIRECT 0.2 mg/dL (0.0-0.4); BILIRUBIN,TOTAL 0.5 mg/dL (0.2-1.3); BLOOD UREA NITROGEN 58 mg/dL (7-20); CALCIUM 9.4 mg/dL (8.4-10.2); CARBON DIOXIDE 26 mmol/L (22-30); CHLORIDE 102 mmol/L (98-107); GLUCOSE 254 mg/dL (75-110); POTASSIUM 5.8 mmol/L (3.6-5.0)
--- NOTE | 2020-02-18 12:17 | EKG REPORT ---
SEVERITY:- ABNORMAL ECG - SINUS RHYTHM LEFT ANTERIOR FASCICULAR BLOCK ABNRM R PROG, CONSIDER ASMI OR LEAD PLACEMENT : Confirmed by: Steven iMr MD 18-Feb-2020 12:16:28
--- NOTE | 2020-02-18 12:20 | RADIOLOGY REPORT (SQ) ---
EXAM DESCRIPTION: CHEST SINGLE VIEW IMAGES COMPLETED DATE/TIME: 02/18/2020 11:47 am REASON FOR STUDY: diaphoresis ? sepsis COMPARISON: 12/31/2019 EXAM PARAMETERS: NUMBER OF VIEWS: One view. TECHNIQUE: Single frontal radiographic view of the chest acquired. RADIATION DOSE: NA LIMITATIONS: None. FINDINGS: LUNGS AND PLEURA: No opacities, masses or pneumothorax. No pleural effusion. MEDIASTINUM AND HILAR STRUCTURES: No masses. Contour normal. HEART AND VASCULAR STRUCTURES: Heart normal in size. Normal vasculature. BONES: No acute findings. HARDWARE: None in the chest. OTHER: No other significant finding. IMPRESSION: NO ACUTE RADIOGRAPHIC FINDING IN THE CHEST. TECHNICAL DOCUMENTATION: JOB ID: [id number] 2010 [employer]- All Rights Reserved Reading location - IP/workstation name: [email or web address]
--- NOTE | 2020-02-18 12:22 | RADIOLOGY REPORT (SQ) ---
EXAM DESCRIPTION: HIP RIGHT AP/LATERAL IMAGES COMPLETED DATE/TIME: 02/18/2020 11:47 am REASON FOR STUDY: s/p thr COMPARISON: None. NUMBER OF VIEWS: Two views. TECHNIQUE: AP pelvis and additional frog legview of the right hip. LIMITATIONS: None. FINDINGS: Postoperative images show a right hip replacement in good position. IMPRESSION: Right hip replacement. Refer to operative note for further information. TECHNICAL DOCUMENTATION: JOB ID: [id number] 2010 [employer]- All Rights Reserved Reading location - IP/workstation name: [email or web address]
[2020-02-18 13:33] LABS: APPEARANCE,URINE CLEAR; BILIRUBIN,URINE NEGATIVE (NEGATIVE); COLOR,URINE YELLOW; GLUCOSE, URINE NEGATIVE (NEGATIVE); KETONES,URINE NEGATIVE (NEGATIVE); PROTEIN,URINE NEGATIVE (NEGATIVE); URINE SPECIFIC GRAVITY 1.012; UROBILINOGEN,URINE NEGATIVE mg/dL (<2.0)
[2020-02-18 14:38] VITALS: BP 135/62
== END 2020-02-18 14:39 | disposition home or self-care (01) ==
LOC: ER 10:32
DX: R55 Syncope and collapse (principal); R53.1 Weakness; I50.9 Heart failure, unspecified; I11.0 Hypertensive heart disease with heart failure; E78.00 Pure hypercholesterolemia, unspecified; Z98.890 Other specified postprocedural states
CPT/HCPCS: 93005; 99285; 96365; 96367; 36415; 87040; 82962; 83605; 85025; 85652; 85610; 86140; 80053; 81001; 84484; 82803; 83880; 71045; 73502; 93010; J3370; J2543

== ENCOUNTER → 2020-02-24 | Day surgery (SDC) | payer MEDICARE ==
[~2020-02-24] MED LIST changes: -ACETAMINOPHEN 325 MG TABLET ONE; -ACETAMINOPHEN 325 MG TABLET PO PRN; -CEFAZOLIN 2 GM/D5W RTU 2 GM/50 ML RTUPB IV ONE; -CEFAZOLIN 2 GM/D5W RTU 2 GM/50 ML RTUPB IV PRN; -CELECOXIB 200 MG CAPSULE ONE; -CELECOXIB 200 MG CAPSULE PO PRN; +FENTANYL CITRATE INJ/PF 100 MCG/2 ML AMPUL ONE; -GABAPENTIN 100 MG CAPSULE ONE; -GABAPENTIN 100 MG CAPSULE PO PRN; +MIDAZOLAM 2 MG/2 ML INJ ONE; -NORMAL SALINE 1000 ML (RENAL PATIENTS) IV PRN; -OXYCODONE HCL SR 10 MG TABLET PO ONE; -OXYCODONE HCL SR 10 MG TABLET PO PRN; -PANTOPRAZOLE SODIUM 20 MG TABLET.DR PO ONE; -PANTOPRAZOLE SODIUM 20 MG TABLET.DR PO PRN; +PROPOFOL INJ 200 MG/20 ML VIAL IV ONE; -SCOPOLAMINE HYDROBROMIDE 1.5 MG PATCH.TD72 ONE; -SCOPOLAMINE HYDROBROMIDE 1.5 MG PATCH.TD72 TD PRN; -TRANEXAMIC ACID INJ/PF 1,000 MG/10 ML SDV IV PRN; -VANCOMYCIN HCL 1,000 MG in DEXTROSE 5%-WATER 250 ML IV PRN
== END ==
LOC: OROUT 11:24
PROVIDERS: ATTEND Orthopaedic Surgery
DX: Z53.9 Procedure and treatment not carried out, unspecified reason (principal); Z20.828 Contact with and (suspected) exposure to other viral communicable diseases
CPT/HCPCS: 86900; 86901; 36415; 86850; U0003; C9803; 87635; J2250; J2405; J2704; J3010

== ENCOUNTER 2020-03-03 16:55 | Emergency (ER) | payer MEDICARE ==
[2020-03-03] MEDS ORDERED: ONDANSETRON 4 MG TAB.RAPDIS PO ONE (18:32)
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
[2020-03-03 19:23] LABS: ABSOLUTE BASOPHILS # (AUTO) 0.1 10^3/uL (0.0-0.2); ABSOLUTE EOSINOPHILS # (AUTO) 0.3 10^3/uL (0.0-0.6); ABSOLUTE LYMPHOCYTES (AUTO) 1.2 10^3/uL (0.5-4.7); ABSOLUTE MONOCYTES (AUTO) 0.6 10^3/uL (0.1-1.4); ABSOLUTE NEUT (AUTO) 6.6 10^3/uL (1.7-8.2); BASOPHILS % (AUTO) 0.7 % (0-2); EOSINOPHILS % (AUTO) 3.3 % (0-6); HEMATOCRIT 34.7 % (37.9-51.0); HEMOGLOBIN 11.4 g/dL (13.5-17.0); LYMPHOCYTES % (AUTO) 13.8 % (13-45); MEAN CORPUSCULAR HEMOGLOBIN 26.1 pg (27.0-33.4); MEAN CORPUSCULAR HGB CONC 32.9 g/dL (32.0-36.0); MEAN CORPUSCULAR VOLUME 80 fl (80-97); MONOCYTES % (AUTO) 6.5 % (3-13); PLATELET COUNT 290 10^3/uL (150-450); RED BLOOD COUNT 4.37 10^6/uL (4.35-5.55); RED CELL DISTRIBUTION WIDTH 16.1 % (11.5-14.0); SEGMENTED NEUTROPHILS % (AUTO) 75.7 % (42-78); TOTAL CELLS COUNTED % (AUTO) 100 %; WHITE BLOOD COUNT 8.8 10^3/uL (4.0-10.5)
--- NOTE | 2020-03-03 19:37 | RADIOLOGY REPORT (SQ) ---
EXAM DESCRIPTION: CHEST SINGLE VIEW IMAGES COMPLETED DATE/TIME: 03/03/2020 7:15 pm REASON FOR STUDY: epigastric pain with n/v COMPARISON: None. EXAM PARAMETERS: NUMBER OF VIEWS: One view. TECHNIQUE: Single frontal radiographic view of the chest acquired. RADIATION DOSE: NA LIMITATIONS: None. FINDINGS: LUNGS AND PLEURA: Minimal scarring or atelectasis at the right costophrenic sulcus. No a cute pulmonary consolidation. No pneumothorax or pleural effusion. MEDIASTINUM AND HILAR STRUCTURES: No masses. Contour normal. HEART AND VASCULAR STRUCTURES: Heart normal in size. Normal vasculature. BONES: No acute findings. HARDWARE: None in the chest. OTHER: No other significant finding. IMPRESSION: 1. Minimal scarring or atelectasis at the right costophrenic sulcus. No acute pulmonar y consolidation. TECHNICAL DOCUMENTATION: JOB ID: [id number] 2010 [employer]- All Rights Reserved Reading location - IP/workstation name: [email or web address]
[2020-03-03 20:43] LABS: ALBUMIN 4.4 g/dL (3.5-5.0); ALKALINE PHOSPHATASE 82 U/L (38-126); ANION GAP 8 (5-19); ASPARTATE AMINO TRANSFERASE 17 U/L (17-59); BILIRUBIN,DIRECT 0.3 mg/dL (0.0-0.4); BILIRUBIN,TOTAL 0.3 mg/dL (0.2-1.3); BLOOD UREA NITROGEN 69 mg/dL (7-20); CARBON DIOXIDE 26 mmol/L (22-30); CHLORIDE 104 mmol/L (98-107); GLUCOSE 109 mg/dL (75-110); TOTAL PROTEIN 7.5 g/dL (6.3-8.2)
--- NOTE | 2020-03-03 21:51 | RADIOLOGY REPORT (SQ) ---
EXAM DESCRIPTION: US ABDOMEN LIMITED COMPLETED DATE/TME: 03/03/2020 21:15 CLINICAL HISTORY: 69 years, Male, epigastric pain with n/v EXAM DESCRIPTION: U/S ABDOMEN LIMITED W/O DOP CLINICAL HISTORY: epigastric pain with n/v COMPARISON: None. FINDINGS: Sonography was performed of the right upper quadrant. There is fatty infiltration of the liver which is enlarged at 17.3 cm span. Pancreas is obscured by bowel gas. Portal is obscured by bowel gas. No sonographic Soto's sign. Right kidney measures 92 mm diameter. Aorta measures 27 mm diameter. Detail is limited. The gallbladder is normal in appearance with no evidence of gallstones, sludge, wall thickening or pericholecystic fluid. No focal hepatic lesion is seen. The right kidney appears normal. Common duct is normal in caliber. IMPRESSION: Fatty enlarged liver. Limited detail.
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
[2020-03-03] MEDS ORDERED: RINGERS SOLUTION,LACTATED 1,000 ML IV ONE (23:31)
[2020-03-03] MEDS ORDERED: DEXTROSE 50%-WATER 25 GM/50 ML DISP.SYRIN IV ONE (23:54)
[2020-03-03] MEDS ORDERED: INSULIN REG, HUMAN 100 UNIT/ML 3 ML VIAL (PYX) IV ONE (23:54)
--- NOTE | 2020-03-04 00:40 | EKG REPORT ---
SEVERITY:- ABNORMAL ECG - SINUS RHYTHM LAD, CONSIDER LEFT ANTERIOR FASCICULAR BLOCK : Confirmed by: Michele Norris 04-Mar-2020 00:40:19
[2020-03-04] MEDS ORDERED: DEXTROSE 50%-WATER 25 GM/50 ML DISP.SYRIN IV ONE (00:41)
[2020-03-04] MEDS ORDERED: CEFTRIAXONE INJ 1000 MG VIAL IV ONE (02:20)
[2020-03-04] MEDS ORDERED: CEFTRIAXONE 1 GM/D5W RTU 1 GM/50 ML RTUPB IV ONE (02:39)
[2020-03-04 04:08] LABS: ANION GAP 8 (5-19); BLOOD UREA NITROGEN 63 mg/dL (7-20); CALCIUM 9.5 mg/dL (8.4-10.2); CARBON DIOXIDE 26 mmol/L (22-30); CHLORIDE 106 mmol/L (98-107); GLUCOSE 96 mg/dL (75-110)
[2020-03-04 04:26] LABS: POTASSIUM 4.8 mmol/L (3.6-5.0)
[2020-03-04 05:41] VITALS: BP 137/59
== END 2020-03-04 04:31 | disposition home or self-care (01) ==
LOC: ER 16:55
DX: R11.2 Nausea with vomiting, unspecified (principal); E86.0 Dehydration; T81.49XA Infection following a procedure, other surgical site, initial encounter; Y83.8 Other surgical procedures as the cause of abnormal reaction of the patient, or of later complication, without mention of misadventure at the time of the procedure; N28.9 Disorder of kidney and ureter, unspecified; T37.0X5A Adverse effect of sulfonamides, initial encounter; R10.13 Epigastric pain; I25.10 Atherosclerotic heart disease of native coronary artery without angina pectoris; I10 Essential (primary) hypertension; J44.9 Chronic obstructive pulmonary disease, unspecified; E11.9 Type 2 diabetes mellitus without complications; R53.1 Weakness; Z96.641 Presence of right artificial hip joint; Z88.8 Allergy status to other drugs, medicaments and biological substances; Z88.6 Allergy status to analgesic agent
CPT/HCPCS: 93005; 99285; 96361 ×2; 96375; 96365; 36415; 87040; 87070; 87205; 82962; 83690; 85025; 80048; 80053; 84484; 71045; 76705; 93010; J3490; A9270 ×2; J0696; J7120; 87077; J1815; S0119

== ENCOUNTER 2020-03-05 09:58 | Day surgery (SDC) | payer MEDICARE ==
[2020-03-05] MEDS ORDERED: CARVEDILOL 6.25 MG TABLET PO ONE (11:30)
[2020-03-05] MEDS ORDERED: ONDANSETRON HCL INJ/PF 4 MG/2 ML SDV ONE (15:02)
[2020-03-05] MEDS ORDERED: MIDAZOLAM 2 MG/2 ML INJ ONE (15:02)
[2020-03-05] MEDS ORDERED: FENTANYL CITRATE INJ/PF 100 MCG/2 ML AMPUL ONE (15:02)
[2020-03-05] MEDS ORDERED: LIDOCAINE 2% INJ-PF (20 MG/ML) 10 ML AMPUL ONE (15:02)
[2020-03-05] MEDS ORDERED: EPHEDRINE SULFATE INJ 50 MG/1 ML AMPULE ONE (15:03)
[2020-03-05] MEDS ORDERED: PROPOFOL INJ 200 MG/20 ML VIAL IV ONE (15:03)
[2020-03-05] MEDS ORDERED: RINGERS SOLUTION,LACTATED 1,000 ML IV PRN (15:17)
[2020-03-05] MEDS ORDERED: OXYCODONE-ACETAMINOPHEN 5-325 MG TABLET PO PRN ×3 (15:17→16:21)
[2020-03-05] MEDS ORDERED: MORPHINE SULFATE 10 MG/ML INJ IV PRN ×2 (15:17→16:21)
[2020-03-05] MEDS ORDERED: KETOROLAC TROMETHAMINE 60 MG/2 ML SDV IM PRN (15:17)
[2020-03-05] MEDS ORDERED: ONDANSETRON HCL INJ/PF 4 MG/2 ML SDV IV PRN ×2 (15:17→16:21)
--- NOTE | 2020-03-05 15:26 | Discharge Summary ---
Discharge Summary (SDC) - Discharge Final Diagnosis: Right hip wound granuloma Date of Surgery: 03/05/20 Discharge Date: 03/05/20 Condition: Stable Treatment or Instructions: Follow-up with Dr. Pranav Mai, orthopedic surgeon at [facility] for surgery, in 10 days. Call for an appointment. . [address], [place] [address] The patient has been sent home with a Prevena wound vac. They are to leave this in place until follow-up in my clinic in 7 to 10 days. They are to keep the unit discharged and to suction at all times. If there is any concerns about the seal or function of the VAC unit, the patient is to follow my office for further instructions. -They may shower with the wound VAC in place, do not get the motorized unit wet. Patient has been given pain medication preoperatively The patient is also seen their physician for side effects from the Bactrim that I had provided and they were transferred over to ciprofloxacin. We will allow the patient to continue this at this time given that they are currently tolerating this well. I will follow with wound cultures and change antibiotics per sensitivities if needed. Patient is weightbearing as tolerated. Referrals: DUANE BEVERLY MD [Primary Care Provider] - Discharge Diet: As Tolerated Respiratory Treatments at Home: Deep Breathing/Coughing Discharge Activity: Activity As Tolerated, Keep Legs Elevated, No tub bath, Walk Frequently Report the Following to Your Physician Immediately: Shortness of Breath, Fever over 101 Degrees, Unusual Bleeding, Drainage-Yellow
[2020-03-05] MEDS ORDERED: BUPIVACAINE HCL 0.5 % INJ/PF 30 ML SDV ONE (15:47)
[2020-03-05] MEDS ORDERED: FENTANYL CITRATE INJ/PF 100 MCG/2 ML AMPUL IV PRN ×2 (16:21)
[2020-03-05] MEDS ORDERED: PROMETHAZINE HCL INJ 25 MG/1 ML VIAL IV PRN (16:21)
[2020-03-05] MEDS ORDERED: DIPHENHYDRAMINE HCL 50 MG/ML VIAL IV PRN (16:21)
[2020-03-05] MEDS ORDERED: MEPERIDINE HCL/PF INJ 25 MG/1 ML DISP.SYRIN IV PRN (16:21)
--- NOTE | 2020-03-05 16:34 | Operative Report ---
Operative Report DATE OF SURGERY: 03/05/20 PREOPERATIVE DIAGNOSIS: Right hip postoperative wound suture granuloma POSTOPERATIVE DIAGNOSIS: Right hip postoperative wound suture granuloma OPERATION: Right hip surgical wound incision and debridement. SURGEON: CHRISTIAN FALL JR ANESTHESIA: Moderate Sedation TISSUE REMOVED OR ALTERED: Cultures sent. Gross specimen sent for culture. COMPLICATIONS: None ESTIMATED BLOOD LOSS: 15 cc PROCEDURE: The patient was brought into the operating suite laid supine on the operating table. He was placed under moderate sedation. Preoperatively he was given 2 g Ancef. The right lower extremities and prepped draped in standard sterile fashion An appropriate timeout was performed followed by marking out of the prior incision. As noted previously he had a small area of hypertrophic tissue approximately 4 x 4 mm towards the distal third of the wound that is grayish in appearance. There is another area of hypertrophic granulation tissue that is approximately 1 x 1 cm and of similar appearance. There is no active drainage. There is no signs of purulence or surrounding erythema. This does not appear infectious however he continued to fail to completely heal. My incision was carried from the more proximal small area to ellipse that as well as the more distal area and was carried distal enough in order to allow for appropriate wound closure. I carefully dissected full-thickness skin as I ellipsed out this tissue. This specimen was sent in a cup fresh to microbiology for culture. The wound bed was explored with a culture swab and there was no apparent presence of a more deep sinus tract. The wound bed after resection of this tissue appeared to be intact. At no point did there appear to be any area of purulence or infection. I removed prior suture material from the wound. All small bleeders were cauterized. After this we irrigated 3 L of dilute Betadine solution through the wound bed followed by approximation with inverted interrupted 2-0 Monocryl. In the superficial tissue I placed 2-0 nylon in a combination of simple interrupted stitches as well as low tension trauma stitches. Finally the wound was cleaned and dried and a Prevena wound VAC was applied. The patient was then awakened from anesthesia and transferred the PACU in stable condition.
[2020-03-05 18:22] VITALS: BP 137/69
== END 2020-03-05 18:12 | disposition home or self-care (01) ==
LOC: OROUT 09:58
PROVIDERS: ATTEND Orthopaedic Surgery
DX: T81.41XD Infection following a procedure, superficial incisional surgical site, subsequent encounter (principal); Y83.8 Other surgical procedures as the cause of abnormal reaction of the patient, or of later complication, without mention of misadventure at the time of the procedure; Z01.812 Encounter for preprocedural laboratory examination; Z20.828 Contact with and (suspected) exposure to other viral communicable diseases; E11.9 Type 2 diabetes mellitus without complications; E66.01 Morbid (severe) obesity due to excess calories; G47.33 Obstructive sleep apnea (adult) (pediatric); I11.0 Hypertensive heart disease with heart failure; I50.40 Unspecified combined systolic (congestive) and diastolic (congestive) heart failure; Z79.82 Long term (current) use of aspirin; Z79.899 Other long term (current) drug therapy; Z79.4 Long term (current) use of insulin; Z96.641 Presence of right artificial hip joint; Z95.5 Presence of coronary angioplasty implant and graft; I25.10 Atherosclerotic heart disease of native coronary artery without angina pectoris
CPT/HCPCS: 11042; 97607; 87070; 87205; 0241U ×4; J2250; J3490 ×2; A9270; J3010; J2405; J2704; C9803; 400; 87075; 88305